=== PATIENT | female | born 1990 | race Caucasian/White ===

== ENCOUNTER 2017-04-29 04:46 | Inpatient (IN) | payer OTHER ==
[~2017-04-29] VITALS: Ht 152.4 cm; Wt 59.0 kg
[2017-04-29] MEDS ORDERED: METHYLPREDNISOLONE 125 MG INJ ONE (04:49)
[2017-04-29] MEDS ORDERED: METHYLPREDNISOLONE 125 MG INJ IV ONE (05:30)
[2017-04-29] MEDS ORDERED: PRENAT PO (05:40)
[2017-04-29] MEDS ORDERED: UDMYL PO (05:41)
[2017-04-29 05:55] LABS: ADD SCAN DIFF NO
[2017-04-29 06:25] LABS: BASOPHIL # 0.1 10^3/ul (0.0-0.1); BASOPHILS % 0.5 % (0.0-2.0); EOSINOPHILS # 0.1 10^3/ul (0.0-0.5); EOSINOPHILS % 0.4 % (0.0-7.0); HEMATOCRIT 34.6 % (37.0-47.0); HEMOGLOBIN 10.7 g/dl (12.0-16.0); LYMPHOCYTES # 2.3 10^3/ul (0.8-2.9); LYMPHOCYTES % 17.3 % (15.0-51.0); MEAN CORPUSCULAR HEMOGLOBIN 26.4 pg (29.0-33.0); MEAN CORPUSCULAR HGB CONC 30.9 g/dl (32.0-37.0); MEAN CORPUSCULAR VOLUME 85.4 fl (82.0-101.0); MEAN PLATELET VOLUME 10.9 fl (7.4-10.4); MONOCYTE # 0.8 10^3/ul (0.3-0.9); MONOCYTES % 5.9 % (0.0-11.0); NEUTROPHILS % 74.9 % (39.0-77.0); NUCLEATED RED BLOOD CELLS # 0.1 10^3/ul (0.0-0.0); NUCLEATED RED BLOOD CELLS% 0.7 /100WBC (0.0-0.0); PLATELET COUNT 462 10^3/UL (140-415); RED BLOOD COUNT 4.05 10^6/ul (4.20-5.40); RED CELL DISTRIBUTION WIDTH 16.3 % (11.5-14.5); WHITE BLOOD COUNT 13.4 10^3/ul (4.8-10.8)
[2017-04-29 06:35] LABS: INR 0.87; PROTIME 11.8 Sec (12.2-14.2); PT RATIO 0.9
[2017-04-29 06:36] LABS: PARTIAL THROMBOPLASTIN TIME 31.3 Sec (25.0-35.0)
--- NOTE | 2017-04-29 06:45 | RADRPT ---
PROCEDURE: XR Chest. CLINICAL INDICATION: Shortness of breath TECHNIQUE: A single AP view of the chest was obtained. COMPARISON: Chest x-ray dated 04/03/2008 FINDINGS: There are diffuse bilateral alveolar opacities. No pleural effusion or pneumothorax is seen. The c ardiomediastinal silhouette is within normal limits for size. The osseous structures are unremarkab le. IMPRESSION: Diffuse bilateral alveolar opacities may reflect pulmonary edema/ARDS or multifocal pneumonia. RPTAT: HH .Poonam Alvarez MD, MD Date Time Electronically viewed and signed by .Poonam Alvarez MD, MD on 04/29/2017 06:44 .G/
[2017-04-29 06:57] LABS: ANION GAP 14 (8-16); BLOOD UREA NITROGEN 16 mg/dl (7-20); CALCIUM 9.8 mg/dl (8.4-10.2); CARBON DIOXIDE 24 mmol/L (21-31); CHLORIDE 105 mmol/L (97-110); GLUCOSE 82 mg/dl (70-220); POTASSIUM 4.9 mmol/L (3.5-5.1); SODIUM 138 mmol/L (135-144)
[2017-04-29 07:00] LABS: ETHANOL < 10.0 mg/dl
[2017-04-29] MEDS ORDERED: CEFTRIAXONE 1 GM/50 ML (PMX) 50 ML IVPB ONE (07:00)
[2017-04-29 07:09] LABS: TROPONIN-I 0.051 ng/ml (0.00-0.12)
[2017-04-29 07:10] LABS: D-DIMER > 10000.00 ng/ml (<460)
[2017-04-29 07:36] LABS: ALBUMIN 3.8 g/dl (3.3-4.9); BILIRUBIN,INDIRECT 0.2 mg/dl (0-1.1); BILIRUBIN,TOTAL 0.2 mg/dl (0.2-1.3); TOTAL PROTEIN 5.3 g/dl (6.1-8.1)
[2017-04-29 07:51] LABS: AADO2 Arterial 132.6 mmHg (7.0-24.0); Allen Test ACCEPTAB; Arterial Base Excess -5.7 mmol/L (-3.0-3); Arterial COHb 0.3 % (0.0-3.0); Arterial Fraction of Oxyhgb 92.7 % (93.0-99.0); Arterial HCO3 16.8 mmol/L (22.0-26.0); Arterial MetHb 0.1 % (0.0-1.5); MODE NASAL CANNULA
[2017-04-29 09:03] LABS: AADO2 Arterial 552.8 mmHg (7.0-24.0); Allen Test ACCEPTAB; Arterial Base Excess -4.4 mmol/L (-3.0-3); Arterial COHb 0.3 % (0.0-3.0); Arterial Fraction of Oxyhgb 97.8 % (93.0-99.0); Arterial HCO3 19.2 mmol/L (22.0-26.0); Arterial MetHb 0.2 % (0.0-1.5); Arterial Total Hemglobin 11.6 g/dl (12.0-18.0); MODE HFNC
[2017-04-29] MEDS ORDERED: LORAZEPAM 2 MG INJ ONE (09:27)
[2017-04-29] MEDS ORDERED: LORAZEPAM 2 MG INJ IV ONE (09:30)
[2017-04-29] MEDS ORDERED: MAGNESIUM SULFATE 4 GM/100 ML 100 ML IVPB ONE (09:30)
[2017-04-29] MEDS ORDERED: hydrALAzine 20 MG INJ IV ONE (09:30)
[2017-04-29] MEDS ORDERED: MINERAL OIL 133 ML ENEMA PR ONE (10:00)
[2017-04-29] MEDS ORDERED: IODIXANOL LOCM 100 ML BTL ONE (10:12)
[2017-04-29] MEDS ORDERED: SOD CHLORIDE 0.9% 100 ML ONE (10:12)
--- NOTE | 2017-04-29 10:53 | RADRPT ---
PROCEDURE: CTA Chest and pulmonary angiogram. CLINICAL INDICATION: Chest pain and shortness of breath. ARDS TECHNIQUE: CT scan of the chest and CT pulmonary angiogram was performed on a multidetector high-r esolution CT scanner. High-resolution thin slice coronal and sagittal imaging was obtained from the axial source images. 3-D volumetric rendered post processing was performed as well. The patient w as examined following the uncomplicated intravenous administration of 100 cc of Visipaque 320. The i mages were reviewed on a PACS workstation. The total exam CTDI equals 42.25, and 9.38 and the total exam DLP equals 328.55 mGy-cm. One or more of the following dose reduction techniques were used: Automated exposure control. Adjustment of the mA and/or kV according to patient size. Use of iterative reconstruction technique. COMPARISON: No prior studies are available for comparison. FINDINGS: CT chest: There is symmetrical bilateral perihilar air space disease with air bronchograms and interlobular se ptal thickening more evident in the periphery of the lung bases. There are small bilateral pleural effusions. The mediastinum is unremarkable without evidence for mass or lymphadenopathy. The vascular structur es of the mediastinum are normal in course and caliber. There is enlargement of the left ventricle. The axillary, subpectoral, and supraclavicular regions are unremarkable. Imaging obtained through the upper abdomen is equally unremarkable. The adrenal glands are symmetri lucas normal. The surrounding chest wall is unremarkable. The osseous structures are remarkable fo r degenerative spondylosis of the spine. CT pulmonary angiogram: No thrombus, clot, filling defect, or pulmonary web is identified. The pulmonary arteries are ban l in caliber and morphology. No filling defect is present to suggest pulmonary embolism. There is no evidence for pulmonary arterial hypertension. IMPRESSION: 1. No evidence for pulmonary embolism. 2. Symmetrical bilateral perihilar air space disease with interlobular septal thickening suggesting alveolar and interstitial pulmonary edema. Multifocal pneumonia remains in the differential. 3. Small bilateral pleural effusions. 4. Left ventricular enlargement. RPTAT: BB .Nghia Delgado MD, MD Date Time Electronically viewed and signed by .Nghia Delgado MD, on 04/29/2017 10:53 .O/
--- NOTE | 2017-04-29 11:16 | RADRPT ---
PROCEDURE: XR CHEST AP PORTABLE CLINICAL INDICATION: Shortness of breath, central cap TECHNIQUE: Single frontal view of the chest COMPARISON: 04/29/2017 FINDINGS: Interval placement of right internal jugular central venous catheter with the tip in the cavoatrial junction. The cardiomediastinal silhouette and pulmonary vasculature are normal. The lungs are clear. Stable bilateral air space consolidation seen bilaterally. The osseous structures are unremarkable. IMPRESSION: Interval placement of right internal jugular central venous catheter with the tip in the cavoatrial junction. No pneumothorax. Stable diffuse bilateral air space consolidation. RPTAT:PP .Dusty Kenyon MD, MD Date Time Electronically viewed and signed by .Dusty Kenyon MD, MD on 04/29/2017 11:16 .V/
--- NOTE | 2017-04-29 11:52 | ERA ---
ER Documentation Chief Complaint Date/Time DATE: 04/29/17 TIME: 05 Chief Complaint sob x 3 days HPI 27-year-old female presents to the emergency department by ambulance complaining of shortness of breath. Patient initially complained of anxiety and shortness of breath for the last 3 days. Upon my arrival, patient has no further history. Initially she denied chest pain but describes her shortness of breath going on for the last 3 days. She states it is worse when she lies down. He has no fevers, cough, sputum production. She reports no inciting event. She states that she has a burning in her epigastric area but no other abdominal pain. She reports no vaginal bleeding or pelvic cramping. She states that she did use methamphetamine approximately 10 days ago but is not no more recent intake. ROS All systems reviewed and are negative except as per history of present illness. Medications Home Meds Reported Medications Magaldrate/Simethicone* (Mag-Al Plus Suspension*) 30 Ml Oral.susp, 30 ML PO Q6H Y for GASTROINTESTINAL UPSET, ML 04/29/17 Multivit/Min/Fol Ac/Iron/Pren* ( S*) 1 Tab Tab, 1 TAB PO DAILY, TAB 04/29/17 Allergies Allergies: Coded Allergies: No Known Drug Allergy (Unverified Allergy, Unknown, 04/29/17) PMhx/Soc Medical and Surgical Hx: pt denies Medical Hx History of Surgery: Yes (3x csection, cholcystectomy) Hx Alcohol Use: Yes Hx Substance Use: Yes Hx Tobacco Use: No Smoking Status: Former smoker FmHx Noncontributory for chief complaint Physical Exam Vitals Vital Signs Date Time Temp Pulse Resp B/P Pulse Ox O2 Delivery O2 Flow Rate FiO2 04/29/17 11:08 100 100 04/29/17 10:05 120 42 126/93 100 High Flow 04/29/17 09:50 100 100 04/29/17 09:31 114 35 121/87 100 High Flow 04/29/17 09:00 118 29 140/112 100 High Flow 04/29/17 08:14 117 46 123/94 100 04/29/17 08:00 99 100 04/29/17 07:58 132 50 126/99 98 5.0 04/29/17 06:50 143 36 95/73 98 Nasal Cannula 04/29/17 06:30 140 99 100 04/29/17 05:14 Nasal Cannula 2 04/29/17 05:04 97.4 133 32 138/114 97 04/29/17 05:04 Nasal Cannula 2.0 04/29/17 05:00 96 4.0 33 Physical Exam GENERAL: Patient is a pale, ill-appearing female who appears to be in respiratory distress. HEENT: Pupils equal, round, and reactive to light. EOMI. There is no scleral icterus. NECK: C-spine is soft and supple, there is no meningismus. There is no cervical lymphadenopathy. No JVD or tracheal deviation LUNGS: Increased respiratory effort. Occasional crackle bilaterally. No wheezing. HEART: Tachycardia with no murmurs rubs or gallops ABDOMEN: Gravid with size appropriate for dates. Nontender to palpation. EXTREMITIES: There is no peripheral cyanosis or edema. No focal swelling or erythema. No Homans sign NEURO: The patient moves all four extremities with 5/5 strength. Cranial nerves II - XII are intact. Normal gait. Alert and oriented. SKIN: There is no apparent rash or petechiae. No evidence of IV drug abuse HEME/LYMPHATIC: There is no evidence of excessive bruising or lymphedema. PSYCHIATRIC: Patient is anxious and somewhat hyperventilating. She is emotionally labile. Result Diagram: 04/29/17 0509 04/29/17 0509 Results 24 hrs Laboratory Tests Test 04/29/17 05:06 04/29/17 05:09 04/29/17 07:05 04/29/17 08:58 Blood Gas Specimen Source Blood arterial Blood arterial Arterial Blood Date Drawn 04/29/2017 5:50:13 AM 04/29/2017 8:55:10 AM Arterial Blood pH (Temp corrected) 7.451 7.416 Arterial Blood pCO2 (Temp correct) 24.7mmhg 30.5mmhg Arterial Blood pO2 (Temp corrected) 73.9mmHG 129.7mmHG Arterial Blood HCO3 16.8mmol/L 19.2mmol/L Arterial Blood Base Excess -5.7mmol/L -4.4mmol/L Arterial Blood Oxygen Saturation 93.1mmHG 98.3mmHG Ruel Test ACCEPTAB ACCEPTAB Arterial Blood Gas Puncture Site Right Radial Right Radial Arterial Blood Carboxyhemoglobin 0.3% 0.3% Arterial Blood Methemoglobin 0.1% 0.2% Blood Gas A-a O2 Differential 132.6mmHg 552.8mmHg Oxyhemoglobin Percent 92.7% 97.8% Total Hemoglobin 11.0g/dl 11.6g/dl Blood Gas Temperature 37.0C 37.0C Blood Gas Actual Respiration Rate 24 Blood Gas Modality NASAL CANNULA HFNC FiO2 33.0% 100.0% Blood Gas Notified Whom Juan Matos TM Blood Gas Notified Time 04/29/2017 6:01:43 AM 04/29/2017 9:02:59 AM White Blood Count 13.410^3/ul Red Blood Count 4.0510^6/ul Hemoglobin 10.7g/dl Hematocrit 34.6% Mean Corpuscular Volume 85.4fl Mean Corpuscular Hemoglobin 26.4pg Mean Corpuscular Hemoglobin Concent 30.9g/dl Red Cell Distribution Width 16.3% Platelet Count 35634^3/UL Mean Platelet Volume 10.9fl Neutrophils % 74.9% Lymphocytes % 17.3% Monocytes % 5.9% Eosinophils % 0.4% Basophils % 0.5% Nucleated Red Blood Cells % 0.7/100WBC Neutrophils # 10.010^3/ul Lymphocytes # 2.310^3/ul Monocytes # 0.810^3/ul Eosinophils # 0.110^3/ul Basophils # 0.110^3/ul Nucleated Red Blood Cells # 0.110^3/ul Prothrombin Time 11.8Sec Prothrombin Time Ratio 0.9 INR International Normalized Ratio 0.87 Activated Partial Thromboplast Time 31.3Sec D-Dimer > 15519.00ng/ml Sodium Level 138mmol/L Potassium Level 4.9mmol/L Chloride Level 105mmol/L Carbon Dioxide Level 24mmol/L Anion Gap 14 Blood Urea Nitrogen 16mg/dl Creatinine 0.90mg/dl Glucose Level 82mg/dl Calcium Level 9.8mg/dl Total Bilirubin 0.2mg/dl Direct Bilirubin 0.00mg/dl Indirect Bilirubin 0.2mg/dl Aspartate Amino Transf (AST/SGOT) 37IU/L Alanine Aminotransferase (ALT/SGPT) 30IU/L Alkaline Phosphatase 194IU/L Troponin I 0.051ng/ml Total Protein 5.3g/dl Albumin 3.8g/dl Ethyl Alcohol Level < 10.0mg/dl Lactic Acid Level 1.6mmol/L Current Medications Medications (Trade) Dose Ordered Sig/Germania Route PRN Reason Start Time Stop Time Status Last Admin Dose Admin Methylprednisolone Sodium Succinate 125 mg 125 mg ONCE ONCE IV 04/29/17 05:30 04/29/17 05:31 DC 04/29/17 05:10 Ceftriaxone Sodium 50 ml @ 100 mls/hr ONCE ONCE IVPB 04/29/17 07:00 04/29/17 07:29 DC 04/29/17 07:26 Magnesium Sulfate (Magnesium Sulfate 4 Gm/100 ml) 100 ml @ 25 mls/hr ONCE ONCE IVPB 04/29/17 09:30 04/29/17 13:29 Hydralazine HCl (Apresoline) 5 mg ONCE ONCE IV 04/29/17 09:30 04/29/17 09:31 DC 04/29/17 09:25 Lorazepam (Ativan) 0.5 mg ONCE ONCE IV 04/29/17 09:30 04/29/17 09:31 DC 04/29/17 09:32 Lorazepam (Ativan) 2 mg STK-MED ONCE .ROUTE 04/29/17 09:27 04/29/17 09:28 DC Mineral Oil (Fleet Mineral Oil Enema) 133 ml ONCE ONCE NM 04/29/17 10:00 04/29/17 10:01 DC IV Flush 10 ml 10 ml STK-MED ONCE .ROUTE 04/29/17 10:12 04/29/17 10:13 DC 04/29/17 10:42 Sodium Chloride (NS) 100 ml @ ud STK-MED ONCE .ROUTE 04/29/17 10:12 04/29/17 10:13 DC 04/29/17 10:43 Iodixanol (Visipaque Locm) 100 ml STK-MED ONCE .ROUTE 04/29/17 10:12 04/29/17 10:13 DC 04/29/17 10:43 Procedures/MDM Patient was taken to a room, seen and evaluated. Comfort measures were initiated. Diagnostic tests were ordered and reviewed. 3 LEAD RHYTHM STRIP: Sinus tachycardia EK lead EKG reviewed by myself: Sinus tachycardia Normal [place] and intervals No ST elevation, depression, or T wave inversion Impression: Tachycardic without ischemic changes RADIOLOGY: reviewed with the radiologist CONSULTATION: hospitalist was notified for admission. Pulmonary consultation has been requested, but I have had no return phone call. The on-call labor arrest was consulted and was at the bedside. The laborist and I discussed the blood pressure, possibility of preeclampsia and management decisions. Joint decision was made to treat anxiety, monitor with expectant management. REEVALUATION: Patient's initial presentation was concerning for hypoxemia and shortness of breath. Initial chest x-ray then demonstrated ARDS which was obviously concerning for multiple causes in this patient. Fortunately , her seem to be viable and when we placed the patient on toco dynamic monitoring, there seem to be no immediate related complications. From the ARDS standpoint, patient required high flow nasal cannula oxygen as she would not tolerate BiPAP. I considered intubating the patient, but her blood gases remained stable and she did not seem to need intubation. She was maintained on high flow nasal cannula. Patient had multiple evaluations including a CT scan of the chest which fortunately did not show pulmonary embolism. The risks and benefits of this test were considered in this patient with significant ARDS, desaturation and severe tachycardia I felt that the risks were outweighed by the necessity for the diagnostic imaging. Patient was treated with antibiotics, but I doubt very much this patient had pneumonia. MEDICAL DECISION MAKING: Overall, my suspicion is that this patient is with ARDS likely related to methamphetamine abuse. She has hypoxemia and tachycardia that makes her obviously high risk. She has required aggressive non -invasive positive pressure ventilation as well as significant evaluation of both the patient as well as her . Patient will be admitted to our intensive care unit for further ongoing care. Departure Diagnosis: Primary Impression: ARDS (adult respiratory distress syndrome) Additional Impressions: Intrauterine Methamphetamine abuse Condition: Critical GLADYS ALFRED Apr 29, 2017 11:52
[2017-04-29] MEDS ORDERED: ONDANSETRON 4 MG INJ IV PRN (13:30)
--- NOTE | 2017-04-29 13:39 | CONS ---
Date/Time of Note Date/Time of Note DATE: 04/29/17 TIME: 13:35 Assessment/Plan Assessment/Plan Additional Assessment/Plan CT of the chest was reviewed which is negative for PE. Bilateral diffuse alveolar infiltrates are present. Chest x-ray findings are similar. Assessment recommendations; 1. Patient admitted with severe bilateral pneumonia. 2. Currently . 3. No underlying comorbid illnesses. Continue supplemental oxygen. Patient is a has improved since admission. I would recommend starting her on Zosyn and Zithromax intravenously. Will obtain follow-up chest x-ray in 24 hours. Consultation Date/Type/Reason Admit Date/Time Date of Consultation: Apr 29, 2017 Type of Consultation: Pulmonary/critical care Reason for Consultation Pulmonary consultations requested for evaluation of severe pneumonia. History of presenting; patient is a 27-year-old female who came into the emergency room with complaints of 3 day history of shortness of breath cough and chest congestion. Upon evaluation chest x-ray was done which is showing diffuse pneumonia. Patient subsequently underwent a CTA of the chest to rule out PE which is negative for PE however bilateral pneumonia has been diagnosed. Patient denies any high fever chills any body aches or myalgias. Complains of scant cough. Denies any hemoptysis. Denies any nausea vomiting. Past medical history; unremarkable. Patient currently . Medications; reviewed. Social history; patient has history of smoking. Family history; noncontributory. Occupation she; patient does not work currently. Review of systems; denies any headache, any seizures. Any visual changes. Any sinus symptoms or postnasal drip. Denies any chest pain, angina. Complains of cough with scant sputum production. Denies any hemoptysis. Denies any abdominal pain, nausea vomiting. Any melena or hematochezia. Complains of mild orthopnea. Denies any edema. Diego; young female, awake alert currently in no distress. Social History Smoking Status: Former smoker Exam/Review of Systems Vital Signs Vitals Vital Signs Date Time Temp Pulse Resp B/P Pulse Ox O2 Delivery O2 Flow Rate FiO2 04/29/17 13:10 100 100 04/29/17 12:47 98.4 113 34 114/74 High Flow Nasal Cannula 04/29/17 07:58 5.0 Exam HEENT examination; supple neck, no JVD. No lymphadenopathy. Midline trachea. No thyromegaly. Pharynx is clear. Patient has fair dentition. Pupils are midsize and reactive to light. Chest examination; bilateral crackles. S1-S2 audible, no murmurs. Regular rhythm. Abdomen examination; soft, nontender. Bowel sounds audible. Extremity examination; no peripheral edema. Pulses 1+ bilaterally. No clubbing. PROJECT ADMINISTRATOR examination; no focal deficit. Results Result Diagram: 04/29/17 0509 04/29/17 0509 Results 24 hrs Laboratory Tests Test 04/29/17 05:06 04/29/17 05:09 04/29/17 07:05 04/29/17 08:58 Blood Gas Specimen Source Blood arterial Blood arterial Arterial Blood Date Drawn 04/29/2017 5:50:13 AM 04/29/2017 8:55:10 AM Arterial Blood pH (Temp corrected) 7.451 H 7.416 Arterial Blood pCO2 (Temp correct) 24.7 L 30.5 L Arterial Blood pO2 (Temp corrected) 73.9 L 129.7 H Arterial Blood HCO3 16.8 L 19.2 L Arterial Blood Base Excess -5.7 L -4.4 L Arterial Blood Oxygen Saturation 93.1 L 98.3 H Ruel Test ACCEPTAB ACCEPTAB Arterial Blood Gas Puncture Site Right Radial Right Radial Arterial Blood Carboxyhemoglobin 0.3 0.3 Arterial Blood Methemoglobin 0.1 0.2 Blood Gas A-a O2 Differential 132.6 H 552.8 H Oxyhemoglobin Percent 92.7 L 97.8 Total Hemoglobin 11.0 L 11.6 L Blood Gas Temperature 37.0 37.0 Blood Gas Actual Respiration Rate 24 Blood Gas Modality NASAL CANNULA HFNC FiO2 33.0 100.0 Blood Gas Notified Whom K B TM Blood Gas Notified Time 04/29/2017 6:01:43 AM 04/29/2017 9:02:59 AM White Blood Count 13.4 H Red Blood Count 4.05 L Hemoglobin 10.7 L Hematocrit 34.6 L Mean Corpuscular Volume 85.4 Mean Corpuscular Hemoglobin 26.4 L Mean Corpuscular Hemoglobin Concent 30.9 L Red Cell Distribution Width 16.3 H Platelet Count 462 H Mean Platelet Volume 10.9 H Neutrophils % 74.9 Lymphocytes % 17.3 Monocytes % 5.9 Eosinophils % 0.4 Basophils % 0.5 Nucleated Red Blood Cells % 0.7 H Neutrophils # 10.0 H Lymphocytes # 2.3 Monocytes # 0.8 Eosinophils # 0.1 Basophils # 0.1 Nucleated Red Blood Cells # 0.1 H Prothrombin Time 11.8 L Prothrombin Time Ratio 0.9 INR International Normalized Ratio 0.87 Activated Partial Thromboplast Time 31.3 D-Dimer > 87285.00 H Sodium Level 138 Potassium Level 4.9 Chloride Level 105 Carbon Dioxide Level 24 Anion Gap 14 Blood Urea Nitrogen 16 Creatinine 0.90 Glucose Level 82 Calcium Level 9.8 Total Bilirubin 0.2 Direct Bilirubin 0.00 Indirect Bilirubin 0.2 Aspartate Amino Transf (AST/SGOT) 37 Alanine Aminotransferase (ALT/SGPT) 30 Alkaline Phosphatase 194 H Troponin I 0.051 Total Protein 5.3 L Albumin 3.8 Ethyl Alcohol Level < 10.0 Lactic Acid Level 1.6 VICTORINO LOYOLA Apr 29, 2017 13:39
[2017-04-29] MEDS ORDERED: PIPER-TAZO 3.375 GM IV (PMX) 100 ML IVPB ONE (14:00)
[2017-04-29] MEDS ORDERED: AZITHROMYCIN 250 MG in SOD CHLORIDE 0.9% 250 ML IVPB SCH (14:00)
[2017-04-29] MEDS ORDERED: LABETALOL HCL 20MG INJ IV PRN (14:00)
[2017-04-29] MEDS ORDERED: FUROSEMIDE 20 MG INJ IV ONE (14:00)
--- NOTE | 2017-04-29 14:50 | HP ---
DATE OF ADMISSION: 04/29/2017 ADMITTING PHYSICIAN: Dr. Lockhart SECONDARY SET UP MAN ON THIS ADMISSION: Dr. Hayes from pulmonary critical care, Dr. Antoine from OB and the on-ca laborist. CHIEF COMPLAINT ON ADMISSION: Shortness of breath. HISTORY OF PRESENT ILLNESS: This is a 27-year-old female who is currently , at least 27 wee ks to 28 weeks, who is also a methamphetamine user, who presented to the emergency department zoila t in by ambulance with reported shortness of breath. The patient, by the time I am evaluating her, did get a small dose of Ativan. She is sleeping. She is not willing to answer questions, but is st able. Therefore, all the information is obtained from the emergency department physician and the ER charts. According to the records, the patient initially was complaining of anxiety and shortness o f breath for the past 3 days. She was denying chest pain, but just reporting shortness of breath. She was reporting that the shortness of breath is worse with lying down; therefore, orthopnea. She denies fevers, cough or sputum production. She at first reported that she did not use any medicatio n for a month then she did not use any for a couple of days, but most likely her last use was the da y of admission. She was reporting burning in her epigastric area, but no further abdominal pain. S he does have a gravid abdomen. Ultrasound was done in the emergency department with estimation of p regnancy viable of 27 weeks at least. She reports no vaginal bleeding or pelvic cramping. OB will be placing a monitor in order to monitor the heart rate. The patient again likely had a rece nt intake of methamphetamine. Either way, she is probably a chronic user, therefore at risk for car diomyopathy. Her chest x-ray findings are consistent with pulmonary edema. There is also questiona ble ARDS. However, currently after a dose of Ativan and also a dose of hydralazine to control her b lood pressure, the patient is much more comfortable. She is currently on high flow. She will be re ceiving a dose of Lasix for diuresis at this time. She has been evaluated by Dr. Hayes from [facility]. He is continuing antibiotics for possible community-acquired pneumonia based on the x-ray findi ngs along with diuresis. Echocardiogram is pending. Patient also had a CTA of the chest. The resu lts are more consistent with multifocal pneumonia versus pulmonary edema with small bilateral pleura l effusion and no pulmonary embolism. The patient is currently more stable, but due to the fact opal t she is , the is viable, she will be admitted to the intensive care unit for clos e monitoring of her respiratory status and also her hemodynamics and notably, her hypertension. Lab etalol p.r.n. will be ordered for her hypertension. She will need social media developer involved. ALLERGIES: NO KNOWN ALLERGIES. PAST MEDICAL HISTORY: None. PAST SURGICAL HISTORY: The patient had 3 C-sections and a cholecystectomy previously. OUTPATIENT MEDICATIONS: 1. vitamin 1 tab p.o. daily. 2. Mylanta every 6 hours as needed for GI upset. SOCIAL HISTORY: This is again based on the reports from the ER. The patient is an alcohol user, it is unclear how much. She is at least a methamphetamine user, it is unclear if she has additional d rug use and she used to be a tobacco smoker. Further information will be obtained once the patient is more awake and more comfortable. REVIEW OF SYSTEMS: Unable to obtain. PHYSICAL EXAMINATION: VITAL SIGNS: Temperature is 98.4, pulse of 113, respiratory rate of 34, blood pressure is 114/74. Patient is satting 100% on high flow. GENERAL: She is sleeping. She is comfortable currently on high flow, in no acute distress. HEENT: Pupils are equally round and reactive to light. Extraocular muscles are intact. Anicteric sclerae. NECK: No JVD per se is seen. No thyromegaly. HEART: Regular rhythm, tachycardic. LUNGS: She does have decreased breath sounds bilaterally. ABDOMEN: Gravid. Again, per bedside ultrasound from the ER physician, there is a reported possibly 27 to 28 weeks viable . EXTREMITIES: No edema, clubbing or cyanosis. NEUROLOGIC: She is currently sleeping, somewhat sedated, but moving all 4 extremities. LABORATORY DATA: White blood cell count is 13.4, hemoglobin of 10.7, hematocrit of 36.4, platelet c ount of 462. Chemistry with a sodium of 138, potassium 4.9, chloride 105, bicarbonate 24, BUN 16, c reatinine 0.90. Lactic acid 1.6, calcium of 9.8, total bilirubin 0.2, AST 37, ALT 30, alkaline phos phatase 194. Troponin 0.051, total protein of 5.3, albumin of 3.8. Alcohol level less than 10. D -dimer greater than 10,000. PTT of 31.3, INR 0.87. PT of 11.8, ABG on high flow currently showing a pH of 7.41, pCO2 of 30, pO2 of 129. EKG shows sinus tachycardia. RADIOLOGICAL DATA: 1. Chest x-ray did show ____ diffuse bilateral alveolar opacity, may reflect pulmonary edema versus ARDS or multifocal pneumonia. CAT scan of the chest is showing no evidence of pulmonary embolism s ymmetrical bilateral perihilar airspace disease with interlobular septal thickening, suggesting alve olar and interstitial pulmonary edema. Multifocal pneumonia cannot be excluded. Small bilateral pl eural effusions, left ventricular enlargement is seen. 2. A 2D echocardiogram is pending. ASSESSMENT AND PLAN: This is a 27-year-old female who is currently 27 to 28 weeks viable with: 1. Respiratory distress likely secondary to congestive heart failure and pulmonary edema. Based on her CAT scan, she likely does have congestive heart failure. The question is does she have systolic dysfunction versus diastolic dysfunction and also pulmonary edema. She did receive a dose of stero ids from the emergency department as there was a question of acute respiratory distress syndrome. I am giving her a dose of Lasix 20 mg IV x1 after discussion with pulmonary. We will continue antibi otics. Also, she did get Rocephin and azithromycin has been added by pulmonary at this point. The patient is to remain on high flow and will titrate her oxygen down as needed. She is being admitted to the intensive care unit due to the fact that she is also , currently with a viable pregn junior; therefore,\k she needs very close monitoring of her respiratory status and also of her hemodyn amics. 2. Hypertension, which is secondary to combination of anxiety and respiratory distress upon admissi on. Her blood pressure is much better now. She did receive a small dose of Ativan and adequate oxy genation currently. Will continue to monitor for now due to the fact that she is if she do es need additional blood pressure control, I have ordered labetalol as needed, a very small dose. 3. of 27 to 28 weeks, viable. Promotion Manager/laborist induction coordination engineer has been consulted. Patient is to have a heart monitor placed so that she can be followed while she is in the ICU. All m edications have to be double checked for safety. 4. Methamphetamine use. account services manager will be contacted. We will continue to monitor the patien t for now. 5. Prophylaxis: Sequential compression devices to lower extremity for deep vein thrombosis prophyl axis. The patient will also need gastrointestinal prophylaxis, likely Pepcid versus just Mylanta. DISPOSITION: The patient is being admitted to the ICU at this time for close monitoring. Pulmonary has been consulted along with laborist supervisor securities vault induction coordination engineer. Dictated By: RUPAL GIORDANO/NTS Conf#: [id number] DID#: [id number]
--- NOTE | 2017-04-29 16:30 | RADRPT ---
Echocardiogram Report Patient Name: STEPHANIE PATEL Gender: Female Date: 1990 Study Date: 29-Apr-2017 Supervisor [employer]: Lopez Cruz [facility] Location: ED4 Ref. Physician: CAITLYN RICK Quality: Good Procedures: Transthoracic echocardiogram with complete 2D, M-Mode, and doppler examination. Indications: Cardiomyopathy. 2D/M Mode Doppler Measurement Value Normal Ranges Measurement Value Normal Ranges LVIDd 2D 5.9 3.5 - 5.6 cm AV Peak Abraham 0.9 m/sec LVIDs 2D 5.5 2.1 - 4.1 cm AV Peak PG 3.2 mmHg LVPWd 2D 1.1 0.6 - 1.1 cm LVOT Peak Abraham 0.6 m/sec IVSd 2D 0.8 0.6 - 1.1 cm LVOT Peak PG 1.6 mmHg AoR Diam 2D 1.7 2.0 - 3.7 cm MV E Peak Abraham 1.3 m/sec EDV 2D 176.3 cm3 MV A Peak Abraham 0.3 m/sec ESV 2D 162.7 cm3 MV E/A 4.3 LA Dimen 2D 3.7 2.3 - 4.0 cm MV Decel Time 112 msec MV Decel Day 11 MV E/A 4.3 TR Peak Abraham 2.3 m/sec TR Peak PG 21.3 mmHg RVSP 24.3 mmHg Findings Left Ventricle: Normal left ventricular wall thickness. Moderate enlargement of left ventricle cavity. Severe left ventricular systolic dysfunction. Ejection fraction is visually estimated at 25 %. Right Ventricle: Normal right ventricular size. Normal right ventricular systolic function. Left Atrium: There is mild enlargement of left atrium. Right Atrium: The right atrium is normal in size. Mitral Valve: Mitral valve leaflets appear mildly thickened. Mild mitral annular calcification. Mild to moderate mitral valve regurgitation. Aortic Valve: Normal appearance of the aortic valve. No significant aortic stenosis or insufficiency. Tricuspid Valve: Normal appearance of the tricuspid valve. Estimated peak PA systolic pressure 24 mmHg. There is mild tricuspid regurgitation. Pulmonic Valve: Normal pulmonic valve appearance. Pericardium: Normal pericardium with no significant pericardial effusion. Aorta: Normal aortic root. IVC: Normal size and normal respiratory collapse consistent with normal right atrial pressure. Pulmonary Artery: Normal pulmonary artery size. Conclusions 1.Normal left ventricular wall thickness. Moderate enlargement of left ventricle cavity. Severe left ventricular systolic dysfunction. Ejection fraction is visually estimated at 25 %. 2.Normal right ventricular size. Normal right ventricular systolic function. 3.There is mild enlargement of left atrium. 4.The right atrium is normal in size. 5.Mild to moderate mitral valve regurgitation. 6.No significant aortic stenosis or insufficiency. 7.Estimated peak PA systolic pressure 24 mmHg. There is mild tricuspid regurgitation. 8.Normal pericardium with no significant pericardial effusion. 9.Findings discussed with Dr. Rick 04/29/17 @4:25p. Electronically Signed By: Bradford Vinson 29-Apr-2017 16:29:05 -0700 Patient Name: STEPHANIE PATEL Study Date: 29-Apr-2017 [id number]
[2017-04-29 17:03] LABS: CK-MB 3.57 ng/ml (0.0-2.4); TROPONIN-I 0.025 ng/ml (0.00-0.12)
--- NOTE | 2017-04-29 19:29 | CONS ---
Date/Time of Note Date/Time of Note DATE: 04/29/17 TIME: 19:27 Assessment/Plan Assessment/Plan Additional Assessment/Plan iup 28 weeks bilateral PNA OB us NST q shift- may do continuous monitoring if patients condition changes continue IV abx will follow Consultation Date/Type/Reason Admit Date/Time Type of Consultation: obgyn Reason for Consultation 28 weeks Hx of Present Illness pt 28 weeks with repiratory complaints. Social History Smoking Status: Former smoker Exam/Review of Systems Vital Signs Vitals Vital Signs Date Time Temp Pulse Resp B/P Pulse Ox O2 Delivery O2 Flow Rate FiO2 04/29/17 19:02 100 90 04/29/17 18:30 98.6 115 29 108/68 High Flow Nasal Cannula 04/29/17 07:58 5.0 Results Result Diagram: 04/29/17 0509 04/29/17 0509 Results 24 hrs Laboratory Tests Test 04/29/17 05:06 04/29/17 05:09 04/29/17 07:05 04/29/17 08:58 Blood Gas Specimen Source Blood arterial Blood arterial Arterial Blood Date Drawn 04/29/2017 5:50:13 AM 04/29/2017 8:55:10 AM Arterial Blood pH (Temp corrected) 7.451 H 7.416 Arterial Blood pCO2 (Temp correct) 24.7 L 30.5 L Arterial Blood pO2 (Temp corrected) 73.9 L 129.7 H Arterial Blood HCO3 16.8 L 19.2 L Arterial Blood Base Excess -5.7 L -4.4 L Arterial Blood Oxygen Saturation 93.1 L 98.3 H Ruel Test ACCEPTAB ACCEPTAB Arterial Blood Gas Puncture Site Right Radial Right Radial Arterial Blood Carboxyhemoglobin 0.3 0.3 Arterial Blood Methemoglobin 0.1 0.2 Blood Gas A-a O2 Differential 132.6 H 552.8 H Oxyhemoglobin Percent 92.7 L 97.8 Total Hemoglobin 11.0 L 11.6 L Blood Gas Temperature 37.0 37.0 Blood Gas Actual Respiration Rate 24 Blood Gas Modality NASAL CANNULA HFNC FiO2 33.0 100.0 Blood Gas Notified Whom K B TM Blood Gas Notified Time 04/29/2017 6:01:43 AM 04/29/2017 9:02:59 AM White Blood Count 13.4 H Red Blood Count 4.05 L Hemoglobin 10.7 L Hematocrit 34.6 L Mean Corpuscular Volume 85.4 Mean Corpuscular Hemoglobin 26.4 L Mean Corpuscular Hemoglobin Concent 30.9 L Red Cell Distribution Width 16.3 H Platelet Count 462 H Mean Platelet Volume 10.9 H Neutrophils % 74.9 Lymphocytes % 17.3 Monocytes % 5.9 Eosinophils % 0.4 Basophils % 0.5 Nucleated Red Blood Cells % 0.7 H Neutrophils # 10.0 H Lymphocytes # 2.3 Monocytes # 0.8 Eosinophils # 0.1 Basophils # 0.1 Nucleated Red Blood Cells # 0.1 H Prothrombin Time 11.8 L Prothrombin Time Ratio 0.9 INR International Normalized Ratio 0.87 Activated Partial Thromboplast Time 31.3 D-Dimer > 86949.00 H Sodium Level 138 Potassium Level 4.9 Chloride Level 105 Carbon Dioxide Level 24 Anion Gap 14 Blood Urea Nitrogen 16 Creatinine 0.90 Glucose Level 82 Calcium Level 9.8 Total Bilirubin 0.2 Direct Bilirubin 0.00 Indirect Bilirubin 0.2 Aspartate Amino Transf (AST/SGOT) 37 Alanine Aminotransferase (ALT/SGPT) 30 Alkaline Phosphatase 194 H Troponin I 0.051 Total Protein 5.3 L Albumin 3.8 Ethyl Alcohol Level < 10.0 Lactic Acid Level 1.6 Test 04/29/17 16:20 Creatine Kinase 84 Creatine Kinase Index 4.3 Creatinine Kinase MB (Mass) 3.57 H Troponin I 0.025 Medications Medications Current Medications Ondansetron HCl (Zofran Inj) 4 mg Q6H PRN IV NAUSEA AND/OR VOMITING; Start at 13:30 Acetaminophen (Tylenol Tab) 650 mg Q6H PRN PO PAIN LEVEL 1-3 OR FEVER; Start at 13:30 Lorazepam (Ativan) 0.5 mg Q8H PRN IV ANXIETY; Start 04/29/17 at 13:30 Labetalol HCl 5 mg 5 mg Q6H PRN IV SBP GREATER THAN 160; Start 04/29/17 at 14: 00 Ceftriaxone Sodium (Rocephin) 50 ml @ 100 mls/hr Q24H IVPB ; Start 04/30/17 at 07:00 SHANNAN RODAS MD Apr 29, 2017 19:29
--- NOTE | 2017-04-29 20:13 | RADRPT ---
PROCEDURE: US OB. CLINICAL INDICATION: well-being, size and dates TECHNIQUE: Multiple sonographic images of the pelvis were obtained. Transabdominal imaging only w as performed. The images were reviewed on a PACS workstation. COMPARISON: No prior studies are available for comparison. FINDINGS: Single intrauterine gestation. Breech presentation. heart rate is 159 bpm. The cervix is closed and measures 6.4 cm in length. Measurements were made in order to determine age. The results are as follows: BPD = 8.06 cm HC = 28.56 cm AC = 30.18 cm FL = 6.74 cm Gestational age is 33 weeks 1 day and GARCÍA is 06/16/2017 by ultrasound criteria. EFW = 2280 g +/- 342 g. The placenta is anterior fundal. There is no evidence for an abruption or placenta previa. IMPRESSION: 1. Single live intrauterine gestation of approximately 33 weeks 1 day by ultrasound criteria. 2. Breech presentation. RPTAT: HDWR .Asim Mccullough MD, MD Date Time Electronically viewed and signed by .Asim Mccullough MD, on 04/29/2017 20:12 .R/
--- NOTE | 2017-04-29 20:16 | RADRPT ---
PROCEDURE: OB ultrasound for biophysical profile CLINICAL INDICATION: well-being. Biophysical profile. . TECHNIQUE: Multiple sonographic images of the pelvis were obtained. Transabdominal view of the gr avid uterus are available for review. The images were reviewed on a PACS workstation. COMPARISON: None FINDINGS: breathing movement = 2/2 tone = 2/2 motion = 2/2 ANNA = 2/2 Single intrauterine gestation is identified in breech position. heart rate is 157 bpm. Placen ta is anterior fundal without evidence for abruption or previa. ANNA measures 7.4 cm, within normal limits. IMPRESSION: 1. Single live intrauterine gestation. 2. Biophysical profile = 8/8. 3. ANNA = 7.4 cm. 4. Breech presentation RPTAT: HDWR .Asim Mccullough MD, MD Date Time Electronically viewed and signed by .Asim Mccullough MD, on 04/29/2017 20:15 .R/
[2017-04-30 02:19] LABS: BARBITURATES Positive (NEGATIVE); CANNABINOIDS Negative (NEGATIVE)
[2017-04-30 02:23] LABS: BENZODIAZEPINES Negative (NEGATIVE); COCAINE Negative (NEGATIVE); OPIATES Negative (NEGATIVE)
[2017-04-30 06:09] LABS: ADD SCAN DIFF NO
[2017-04-30 06:11] LABS: BASOPHILS % 0.2 % (0.0-2.0); EOSINOPHILS % 0.1 % (0.0-7.0); HEMATOCRIT 25.5 % (37.0-47.0); HEMOGLOBIN 7.8 g/dl (12.0-16.0); LYMPHOCYTES # 1.7 10^3/ul (0.8-2.9); LYMPHOCYTES % 12.8 % (15.0-51.0); MEAN CORPUSCULAR HEMOGLOBIN 26.4 pg (29.0-33.0); MEAN CORPUSCULAR HGB CONC 30.6 g/dl (32.0-37.0); MEAN CORPUSCULAR VOLUME 86.1 fl (82.0-101.0); MEAN PLATELET VOLUME 11.1 fl (7.4-10.4); MONOCYTE # 1.2 10^3/ul (0.3-0.9); MONOCYTES % 8.9 % (0.0-11.0); NEUTROPHIL # 10.3 10^3/ul (1.6-7.5); NEUTROPHILS % 77.1 % (39.0-77.0); NUCLEATED RED BLOOD CELLS # 0.1 10^3/ul (0.0-0.0); NUCLEATED RED BLOOD CELLS% 0.6 /100WBC (0.0-0.0); PLATELET COUNT 349 10^3/UL (140-415); RED BLOOD COUNT 2.96 10^6/ul (4.20-5.40); RED CELL DISTRIBUTION WIDTH 16.8 % (11.5-14.5); WHITE BLOOD COUNT 13.3 10^3/ul (4.8-10.8)
--- NOTE | 2017-04-30 06:31 | RADRPT ---
PROCEDURE: XR, Chest. CLINICAL INDICATION: Cough/shortness of breath. TECHNIQUE: AP chest COMPARISON: Chest, 04/03/2008. FINDINGS: No pleural effusion. The heart is is moderately enlarged with bilateral perihilar air space infiltr ates vs airspace pulmonary edema. There is central pulmonary artery hypertension. IMPRESSION: 1. Moderate cardiomegaly with bilateral perihilar air space pulmonary edema vs bilateral perihilar air space infiltrates. Recommend clinical correlation. 2. Central pulmonary artery hypertension. RPTAT: GG .Giovanny Gonzalez MD, MD Date Time Electronically viewed and signed by .Giovanny Gonzalez MD, MD on 04/30/2017 06:30 .Y/
[2017-04-30 06:34] LABS: ALBUMIN 2.7 g/dl (3.3-4.9); ALBUMIN/GLOBULIN RATIO 1.03; BILIRUBIN,INDIRECT 0.1 mg/dl (0-1.1); BILIRUBIN,TOTAL 0.1 mg/dl (0.2-1.3); CALCIUM 7.9 mg/dl (8.4-10.2); CREATININE 0.89 mg/dl (0.44-1.00); POTASSIUM 4.2 mmol/L (3.5-5.1); TOTAL PROTEIN 5.3 g/dl (6.1-8.1)
[2017-04-30] MEDS ORDERED: CEFTRIAXONE 1 GM/50 ML (PMX) 50 ML IVPB SCH (07:00)
[2017-04-30 07:17] LABS: MAGNESIUM 1.9 mg/dl (1.7-2.5); PHOSPHORUS 3.4 mg/dl (2.5-4.9)
[2017-04-30] MEDS: ACETAMINOPHEN 325 MG TAB PO PRN ×3 (07:52→20:22)
[2017-04-30] MEDS: LORAZEPAM 2 MG INJ IV PRN ×2 (07:52→20:21)
--- NOTE | 2017-04-30 08:29 | PN ---
Date/Time of Note Date/Time of Note DATE: 04/30/17 TIME: 08:25 Assessment/Plan VTE Prophylaxis VTE Prophylaxis Intervention: anti-embolic stocking, SCD's Assessment/Plan Assessment/Plan 1. pulm: severe hypoxemic resp failure, improving, cont gentle diuresis for pulm edema (b0 cont Rx for pneumonia, (c) wean O2 as tolerated 2. cartds: dilated cardiomyopathy, ? vs amphetamine vs both. defer acei in light of 3. proph: teds and scd Subjective 24 Hr Interval Summary Free Text/Dictation somnolent, barely arouseable after receiving ativan Respiratory: wheezing Exam/Review of Systems Vital Signs Vitals Vital Signs Date Time Temp Pulse Resp B/P Pulse Ox O2 Delivery O2 Flow Rate FiO2 04/30/17 07:37 100 40 04/30/17 07:00 116 32 113/78 High Flow 5.0 04/30/17 04:30 97.9 Intake and Output 04/29/17 04/29/17 04/30/17 15:00 23:00 07:00 Intake Total 50 ml 100 ml Balance 50 ml 100 ml Exam Constitutional: non-verbal Respiratory: crackles/rales Cardiovascular: regular rate and rhythm Results Result Diagram: 04/30/17 0540 04/30/17 0540 Results 24 hrs Laboratory Tests Test 04/29/17 08:58 04/29/17 16:20 04/30/17 01:23 04/30/17 05:40 Blood Gas Specimen Source Blood arterial Arterial Blood Date Drawn 04/29/2017 8:55:10 AM Arterial Blood pH (Temp corrected) 7.416 Arterial Blood pCO2 (Temp correct) 30.5 L Arterial Blood pO2 (Temp corrected) 129.7 H Arterial Blood HCO3 19.2 L Arterial Blood Base Excess -4.4 L Arterial Blood Oxygen Saturation 98.3 H Ruel Test ACCEPTAB Arterial Blood Gas Puncture Site Right Radial Arterial Blood Carboxyhemoglobin 0.3 Arterial Blood Methemoglobin 0.2 Blood Gas A-a O2 Differential 552.8 H Oxyhemoglobin Percent 97.8 Total Hemoglobin 11.6 L Blood Gas Temperature 37.0 Blood Gas Modality HFNC FiO2 100.0 Blood Gas Notified Whom TM Blood Gas Notified Time 04/29/2017 9:02:59 AM Creatine Kinase 84 Creatine Kinase Index 4.3 Creatinine Kinase MB (Mass) 3.57 H Troponin I 0.025 Urine Opiates Screen Negative Urine Barbiturates Positive Urine Amphetamines Screen POSITIVE Urine Benzodiazepines Screen Negative Urine Cocaine Screen Negative Urine Cannabinoids Negative White Blood Count 13.3 H Red Blood Count 2.96 #L Hemoglobin 7.8 #L Hematocrit 25.5 #L Mean Corpuscular Volume 86.1 Mean Corpuscular Hemoglobin 26.4 L Mean Corpuscular Hemoglobin Concent 30.6 L Red Cell Distribution Width 16.8 H Platelet Count 349 # Mean Platelet Volume 11.1 H Neutrophils % 77.1 H Lymphocytes % 12.8 L Monocytes % 8.9 Eosinophils % 0.1 Basophils % 0.2 Nucleated Red Blood Cells % 0.6 H Neutrophils # 10.3 H Lymphocytes # 1.7 Monocytes # 1.2 H Eosinophils # 0.0 Basophils # 0.0 Nucleated Red Blood Cells # 0.1 H Sodium Level 138 Potassium Level 4.2 Chloride Level 107 Carbon Dioxide Level 22 Anion Gap 13 Blood Urea Nitrogen 24 H Creatinine 0.89 Glucose Level 97 Calcium Level 7.9 L Phosphorus Level 3.4 Magnesium Level 1.9 Total Bilirubin 0.1 L Direct Bilirubin 0.00 Indirect Bilirubin 0.1 Aspartate Amino Transf (AST/SGOT) 24 Alanine Aminotransferase (ALT/SGPT) 26 Alkaline Phosphatase 153 H Total Protein 5.3 L Albumin 2.7 #L Globulin 2.60 Albumin/Globulin Ratio 1.03 Medications Medications Current Medications Ondansetron HCl (Zofran Inj) 4 mg Q6H PRN IV NAUSEA AND/OR VOMITING; Start at 13:30 Acetaminophen (Tylenol Tab) 650 mg Q6H PRN PO PAIN LEVEL 1-3 OR FEVER Last administered on 04/30/17 07:52; Admin Dose 650 MG; Start 04/29/17 at 13:30 Lorazepam (Ativan) 0.5 mg Q8H PRN IV ANXIETY Last administered on 04/30/17 07: 52; Admin Dose 0.5 MG; Start 04/29/17 at 13:30 Labetalol HCl 5 mg 5 mg Q6H PRN IV SBP GREATER THAN 160; Start 04/29/17 at 14: 00 Ceftriaxone Sodium (Rocephin) 50 ml @ 100 mls/hr Q24H IVPB Last administered on 04/30/17 07:36; Admin Dose 100 MLS/HR; Start 04/30/17 at 07:00 TAMMY RUIZ MD Apr 30, 2017 08:29
[2017-04-30] MEDS ORDERED: FUROSEMIDE 40 MG INJ IV ONE (08:30)
--- NOTE | 2017-04-30 09:29 | CONS ---
Date/Time of Note Date/Time of Note DATE: 04/30/17 TIME: 09:26 Assessment/Plan Assessment/Plan Additional Assessment/Plan Chest x-ray was reviewed from today which is showing significant improvement in bilateral severe pneumonia. Assessment recommendations; 1. Patient admitted for severe bilateral pneumonia with significant clinical and radiological improvement. 2. Currently at 26 weeks. 3. No other comorbid conditions. Continue current treatment. Rocephin has been discontinued and the patient needs to be continued on intravenous Zithromax and Zosyn. Consultation Date/Type/Reason Admit Date/Time Initial Consult Date 04/29/17 Type of Consultation: Pulmonary 24 HR Interval Summary Free Text/Dictation Condition is improved significantly. Denies any coughing wheezing fever chills. Shortness of breath also has improved markedly. General exam; young woman, awake alert currently in no distress. Exam/Review of Systems Vital Signs Vitals Vital Signs Date Time Temp Pulse Resp B/P Pulse Ox O2 Delivery O2 Flow Rate FiO2 04/30/17 09:01 106 29 103/64 100 High Flow 04/30/17 07:37 40 04/30/17 07:00 5.0 04/30/17 04:30 97.9 Intake and Output 04/29/17 04/29/17 04/30/17 15:00 23:00 07:00 Intake Total 50 ml 100 ml Balance 50 ml 100 ml Exam HEENT examination; supple neck, no JVD. No lymphadenopathy. Midline trachea. No thyromegaly. Dentition is fair. Chest examination; clear to auscultation. S1-S2 audible, no murmurs. Abdomen examination; soft, bowel sounds audible. Patient is gravid. Extremity examination; no peripheral edema. SPORTS EQUIPMENT REPAIRER examination; no focal deficit. Results Result Diagram: 04/30/17 0540 04/30/17 0540 Results 24 hrs Laboratory Tests Test 04/29/17 16:20 04/30/17 01:23 04/30/17 05:40 Creatine Kinase 84 Creatine Kinase Index 4.3 Creatinine Kinase MB (Mass) 3.57 H Troponin I 0.025 Urine Opiates Screen Negative Urine Barbiturates Positive Urine Amphetamines Screen POSITIVE Urine Benzodiazepines Screen Negative Urine Cocaine Screen Negative Urine Cannabinoids Negative White Blood Count 13.3 H Red Blood Count 2.96 #L Hemoglobin 7.8 #L Hematocrit 25.5 #L Mean Corpuscular Volume 86.1 Mean Corpuscular Hemoglobin 26.4 L Mean Corpuscular Hemoglobin Concent 30.6 L Red Cell Distribution Width 16.8 H Platelet Count 349 # Mean Platelet Volume 11.1 H Neutrophils % 77.1 H Lymphocytes % 12.8 L Monocytes % 8.9 Eosinophils % 0.1 Basophils % 0.2 Nucleated Red Blood Cells % 0.6 H Neutrophils # 10.3 H Lymphocytes # 1.7 Monocytes # 1.2 H Eosinophils # 0.0 Basophils # 0.0 Nucleated Red Blood Cells # 0.1 H Sodium Level 138 Potassium Level 4.2 Chloride Level 107 Carbon Dioxide Level 22 Anion Gap 13 Blood Urea Nitrogen 24 H Creatinine 0.89 Glucose Level 97 Calcium Level 7.9 L Phosphorus Level 3.4 Magnesium Level 1.9 Total Bilirubin 0.1 L Direct Bilirubin 0.00 Indirect Bilirubin 0.1 Aspartate Amino Transf (AST/SGOT) 24 Alanine Aminotransferase (ALT/SGPT) 26 Alkaline Phosphatase 153 H Total Protein 5.3 L Albumin 2.7 #L Globulin 2.60 Albumin/Globulin Ratio 1.03 Medications Medications Current Medications Ondansetron HCl (Zofran Inj) 4 mg Q6H PRN IV NAUSEA AND/OR VOMITING; Start at 13:30 Acetaminophen (Tylenol Tab) 650 mg Q6H PRN PO PAIN LEVEL 1-3 OR FEVER Last administered on 04/30/17 07:52; Admin Dose 650 MG; Start 04/29/17 at 13:30 Lorazepam (Ativan) 0.5 mg Q8H PRN IV ANXIETY Last administered on 04/30/17 07: 52; Admin Dose 0.5 MG; Start 04/29/17 at 13:30 Labetalol HCl (Labetalol) 5 mg Q6H PRN IV SBP GREATER THAN 160; Start 04/29/17 at 14:00 VICTORINO LOYOLA 17, 2017 09:29
[2017-04-30] MEDS: PIPER-TAZO 3.375 GM IV (PMX) 100 ML IVPB SCH ×2 (09:40→19:09)
[2017-04-30 10:04] LABS: RETICULOCYTE COUNT % 3.2 % (0.5-1.5)
[2017-04-30 10:22] LABS: IRON 25 ug/dl (35-150)
[2017-04-30 10:31] LABS: TOTAL IRON BINDING CAPACITY 384 ug/dl (241-421)
[2017-04-30 13:10] LABS: FOLATE 19.6 ng/ml (2.8-20.0)
[2017-04-30] MEDS ORDERED: ACETAMINOPHEN 325 MG TAB ONE ×2 (14:46→20:20)
[2017-04-30] MEDS ORDERED: LORAZEPAM 2 MG INJ ONE (18:13)
--- NOTE | 2017-04-30 20:46 | QN ---
Documentation Comment Laborist 27 y.o. with an IUP at 33 weeks by US and admitted with severe respiratory distress. Pt is still in the ER due to an absence of an available bed in the ICU as with several other patients. Work-up thus far is pointing towards pulmonary edema with an ejection fraction of 25% on ECHO and chest XR consistent with that as well. Pt is being concurrently treated for pneumonia with antibiotics (Rocephin and Zosyn, and did receive one dose of Zithromax) due to the unclear nature of the presentation. Pt is sleeping and barely arousable after one dose of Ativan. She has a positive drug screen for amphetamines and barbituates.WBC is 13.5. Hgb was 10.7 and is now 7.8. D-Dimers were very elevated.Pt is being followed by the hospitalist and pulmonary and cardiology. NST's for the baby are being done q 6-8 hours. Today the baseline is 160 bpm with accels to 175 and no decels but is overall more tachycardic then yesterday. There is however no indication to intervene on behalf of the baby at this point and obviously the pt is still not stable. Will continue to follow. ASAEL HOLLY MD Apr 30, 2017 18:58
[2017-04-30 22:00] VITALS: TEMP 99
[2017-05-01] VITALS (19 sets, daily range): BP systolic 107–149; BP diastolic 77–116; PULSE 110–141; RESP 18–45; Ht 152.4 cm; Wt 59.0 kg
[2017-05-01] MEDS ORDERED: LORAZEPAM 2 MG INJ IV PRN (01:00)
[2017-05-01] MEDS ORDERED: ONDANSETRON 4 MG INJ ONE (06:32)
[2017-05-01] MEDS: LORAZEPAM 2 MG INJ IV PRN ×2 (10:08→16:04)
--- NOTE | 2017-05-01 11:17 | CONS ---
Date/Time of Note Date/Time of Note DATE: 05/01/17 TIME: 11:15 Assessment/Plan Assessment/Plan Additional Assessment/Plan Assessment recommendations; 1. Patient admitted with severe bilateral pneumonia with significant clinical improvement. 2. Currently at 2627 weeks. 3. Anemia. Continue current treatment. Patient on Zithromax and Zosyn. Will obtain follow -up chest x-ray in 24 hours. Consultation Date/Type/Reason Admit Date/Time Apr 29, 2017 at 07:23 Initial Consult Date 04/29/17 Type of Consultation: Pulmonary 24 HR Interval Summary Free Text/Dictation Patient condition stable. Denies any significant shortness of breath, denies any coughing wheezing sputum production fever chills or chest pain. Complaining of insomnia. General exam; young woman, awake currently in no distress. Exam/Review of Systems Vital Signs Vitals Vital Signs Date Time Temp Pulse Resp B/P Pulse Ox O2 Delivery O2 Flow Rate FiO2 05/01/17 09:13 128 05/01/17 09:00 33 110/96 91 High Flow 05/01/17 08:00 98.0 05/01/17 05:37 30 05/01/17 04:35 5.0 Exam HEENT exam; supple neck, no JVD. No lymphadenopathy. Midline trachea. No thyromegaly. Patient has fair dentition. Chest exam; clear to auscultation. S1-S2 audible, no murmurs. Regular rhythm. Abdomen examination; soft, nontender. Patient is gravid. Extremity examination; no peripheral edema. Pulses 1+ bilaterally. EMPLOYEE RELATIONS MANAGER examination; no focal deficit. Results Result Diagram: 04/30/17 0540 04/30/17 0540 Results 24 hrs Laboratory Tests Test 05/01/17 01:03 Bedside Glucose 105 Medications Medications Current Medications Lorazepam 0.5 mg 0.5 mg Q6H PRN IV AGITATION/ANXIETY Last administered on t 10:08; Admin Dose 0.5 MG; Start 05/01/17 at 10:30 Piperacillin Sod/ Tazobactam Sod (Zosyn 3.375gm/ 100 ml (Pmx)) 100 ml @ 25 mls/ hr TID@02,10,18 IVPB ; Start 05/01/17 at 18:00; Status VICTORINO MIXON May 01, 2017 11:17
--- NOTE | 2017-05-01 11:37 | PN ---
Date/Time of Note Date/Time of Note DATE: 05/01/17 TIME: 11:33 Assessment/Plan VTE Prophylaxis VTE Prophylaxis Intervention: anti-embolic stocking Lines/Catheters IV Catheter Type (from Nrsg): Peripheral IV Central line still needed: No Urinary Cath still in place: No Assessment/Plan Assessment/Plan 1. pulm sever resp distress, still reuiring 30% Fio2 on high flow, etiology likely chf. however, consider also atypical pna (PCP??), check HIV checkl CD4; is bronchoscopy going to be helpful?? 2. cards: cardiomyopathy, nos, likely related ot amphetamine, consider also induced, cards eval (b) tachycardia, likely multifactorial including hypoxemia, anemia, 3. anemai with Fe deficiency, add Fe, however am reluctant to add transfusion with suspected chf 4. Subjective 24 Hr Interval Summary Free Text/Dictation no complaints, still sob, worse with laying down Exam/Review of Systems Vital Signs Vitals Vital Signs Date Time Temp Pulse Resp B/P Pulse Ox O2 Delivery O2 Flow Rate FiO2 05/01/17 11:00 127 42 131/87 99 High Flow 05/01/17 08:00 98.0 05/01/17 05:37 30 05/01/17 04:35 5.0 Exam Constitutional: alert Respiratory: clear to auscultation Cardiovascular: regular rate and rhythm Gastrointestinal: soft Results Result Diagram: 04/30/17 0540 04/30/17 0540 Results 24 hrs Laboratory Tests Test 05/01/17 01:03 Bedside Glucose 105 Medications Medications Current Medications Lorazepam 0.5 mg 0.5 mg Q6H PRN IV AGITATION/ANXIETY Last administered on t 10:08; Admin Dose 0.5 MG; Start 05/01/17 at 10:30 Piperacillin Sod/ Tazobactam Sod 100 ml @ 25 mls/hr TID@06,14,22 IVPB ; Start 05/01/17 at 14:00 Azithromycin/ Sodium Chloride (Zithromax/NS) 250 ml @ 250 mls/hr Q24H IVPB ; Start 05/01/17 at 12:00 TAMMY RUIZ MD May 01, 2017 11:37
[2017-05-01] MEDS ORDERED: LABETALOL HCL 20MG INJ IV PRN (12:00)
[2017-05-01] MEDS: AZITHROMYCIN 500 MG in SOD CHLORIDE 0.9% 250 ML IVPB SCH (12:40)
--- NOTE | 2017-05-01 13:17 | CONS ---
Date/Time of Note Date/Time of Note DATE: 05/01/17 TIME: 13:08 Assessment/Plan Assessment/Plan Additional Assessment/Plan Respiratory failure Acute decompensated systolic congestive heart failure Severe cardiomyopathy Methamphetamine use -Patient with possible pneumonia versus ARDS with likely an element of decompensated congestive heart failure. Would give intermittent IV diuretics as blood pressure and renal function tolerates. Antibiotics as per primary team. No VON inhibitor at the current time given patient is . Maintain potassium above 4.0 and magnesium above 2.0. Consultation Date/Type/Reason Admit Date/Time Apr 29, 2017 at 07:23 Type of Consultation: cv Reason for Consultation CHF Hx of Present Illness This is a 27-year-old female who presents with shortness of breath. Patient found to be as well as with methamphetamine use. Echocardiogram performed also demonstrated severe cardia myopathy. Cardiology consultation was requested for assistance with management. Patient currently denies any chest pain or shortness of breath. She recurrently falls asleep and is intermittently compliant with history taking and examination. She does complain of mild cough which is nonproductive. She denies any chest pain, dizziness. Unable to be performed at the current time given patient's mental status. Respiratory: wheezing Past Medical History Social History Smoking Status: Former smoker Drug Use: other (Methamphetamine use) Exam/Review of Systems Vital Signs Vitals Vital Signs Date Time Temp Pulse Resp B/P Pulse Ox O2 Delivery O2 Flow Rate FiO2 05/01/17 12:30 131 05/01/17 11:00 42 131/87 99 High Flow 05/01/17 08:00 98.0 05/01/17 05:37 30 05/01/17 04:35 5.0 Exam sleeping but arrousable, follows commands intermittently Head: normocephalic Respiratory: other (Coarse breath sounds bilaterally with mild scattered rhonchi, no wheezing) Cardiovascular: other (S1-S2 heard), regular rate and rhythm, systolic murmur Gastrointestinal: bowel sounds, non-tender, soft Extremities: edema (Trace) Results Result Diagram: 04/30/17 0540 04/30/17 0540 Results 24 hrs Laboratory Tests Test 05/01/17 01:03 Bedside Glucose 105 Medications Medications Current Medications Lorazepam 0.5 mg 0.5 mg Q6H PRN IV AGITATION/ANXIETY Last administered on t 10:08; Admin Dose 0.5 MG; Start 05/01/17 at 10:30 Piperacillin Sod/ Tazobactam Sod 100 ml @ 25 mls/hr TID@06,14,22 IVPB ; Start 05/01/17 at 14:00 Azithromycin/ Sodium Chloride (Zithromax/NS) 250 ml @ 250 mls/hr Q24H IVPB Last administered on 05/01/17t 12:40; Admin Dose 250 MLS/HR; Start 05/01/17 at 12:00 Polysaccharide Iron Complex (Niferex-150) 1 cap TID PO ; Start 05/01/17 at 13:00 Labetalol HCl (Labetalol) 5 mg Q6H PRN IV ELEVATED BLOOD PRESSURE; Start at 12:00 Acetaminophen (Tylenol Tab) 650 mg Q6H PRN PO PAIN AND OR ELEVATED TEMP; Start 05/01/17 at 12:00 Ondansetron HCl (Zofran Inj) 4 mg Q6H PRN IV NAUSEA AND/OR VOMITING; Start at 12:00 Procedures Procedures ECG demonstrates sinus tachycardia at 143 bpm, QRS 70 ms, nonspecific STT wave abnormalities Bradford Vinson DO May 01, 2017 13:17
[2017-05-01] MEDS ORDERED: MAGNESIUM SULFATE 1 GM/D5W 100 ML IVPB ONE (13:30)
[2017-05-01] MEDS ORDERED: FUROSEMIDE 20 MG INJ IV ONE ×2 (13:30)
[2017-05-01] MEDS: POLYSACCHARIDE IRON COMPLEX CAP PO SCH ×2 (13:48→20:45)
[2017-05-01] MEDS: ONDANSETRON 4 MG INJ IV PRN (13:49)
[2017-05-01] MEDS: PIPER-TAZO 3.375 GM IV (PMX) 100 ML IVPB SCH ×2 (13:54→21:51)
--- NOTE | 2017-05-01 14:49 | QN ---
Documentation Comment OB- Laborist Rounding Pt denies c/o. Reports movement, denies LOF, VB or UCs VS: P 135 BP 127/83 R 36 Gen: sleeping, difficult to arouse initially and when aroused, irritable Abd: soft, gravid, nontender Ext: nontender, symmetric, no edema FHT: baseline 150s-160s, mod shazia, +accels, no decels [place]: acontractile Labs: none new Imaging: none new Assessment IUP at 33+3, breech presentation Reactive NST CHF vs pulm edema vs atypical PNA, receiving Zosyn and Zithromax PSA, pos Utox for barbituates and amphetamines Tachycardia Anemia Plan Appreciate Medicine/ICU care. Will defer management of pulmonary and cardiac disease to primary team. At this time well being is reassuring and there is no e/o labor thus no Obstetrical intervention is warranted. Should pt start chidi, OB should be contacted immediately especially given breech presentation of fetus on admission U/S. Continue NST q8H for now, however should patient's clinical course worsen or NSTs become concerning for FWB, would recommend changing to continuous monitoring KAROLYN SERNA MD May 01, 2017 14:49
[2017-05-02] VITALS (23 sets, daily range): BP systolic 99–132; BP diastolic 61–104; PULSE 103–137; RESP 19–39
[2017-05-02] MEDS: LORAZEPAM 2 MG INJ IV PRN ×4 (02:05→20:54)
[2017-05-02] MEDS ORDERED: FUROSEMIDE 20 MG INJ IV SCH (06:00)
[2017-05-02] MEDS: PIPER-TAZO 3.375 GM IV (PMX) 100 ML IVPB SCH ×3 (06:14→22:00)
[2017-05-02 06:39] LABS: ADD SCAN DIFF NO
[2017-05-02 06:53] LABS: BASOPHILS % 0.2 % (0.0-2.0); EOSINOPHILS # 0.1 10^3/ul (0.0-0.5); HEMATOCRIT 25.3 % (37.0-47.0); HEMOGLOBIN 7.8 g/dl (12.0-16.0); LYMPHOCYTES # 1.8 10^3/ul (0.8-2.9); LYMPHOCYTES % 15.3 % (15.0-51.0); MEAN CORPUSCULAR HEMOGLOBIN 26.7 pg (29.0-33.0); MEAN CORPUSCULAR HGB CONC 30.8 g/dl (32.0-37.0); MEAN CORPUSCULAR VOLUME 86.6 fl (82.0-101.0); MEAN PLATELET VOLUME 10.7 fl (7.4-10.4); MONOCYTE # 0.6 10^3/ul (0.3-0.9); MONOCYTES % 5.5 % (0.0-11.0); NEUTROPHIL # 8.8 10^3/ul (1.6-7.5); NEUTROPHILS % 77.1 % (39.0-77.0); NUCLEATED RED BLOOD CELLS # 0.2 10^3/ul (0.0-0.0); NUCLEATED RED BLOOD CELLS% 1.7 /100WBC (0.0-0.0); PLATELET COUNT 339 10^3/UL (140-415); RED BLOOD COUNT 2.92 10^6/ul (4.20-5.40); RED CELL DISTRIBUTION WIDTH 16.8 % (11.5-14.5); WHITE BLOOD COUNT 11.4 10^3/ul (4.8-10.8)
[2017-05-02 07:10] LABS: ALANINE AMINOTRANSFERASE 24 IU/L (13-69); ALBUMIN 2.6 g/dl (3.3-4.9); ALBUMIN/GLOBULIN RATIO 1.04; ALKALINE PHOSPHATASE 149 IU/L (42-121); ANION GAP 12 (8-16); ASPARTATE AMINO TRANSFERASE 22 IU/L (15-46); BILIRUBIN,INDIRECT 0.1 mg/dl (0-1.1); BILIRUBIN,TOTAL 0.1 mg/dl (0.2-1.3); BLOOD UREA NITROGEN 9 mg/dl (7-20); CALCIUM 8.2 mg/dl (8.4-10.2); CARBON DIOXIDE 21 mmol/L (21-31); CHLORIDE 107 mmol/L (97-110); CREATININE 0.76 mg/dl (0.44-1.00); GLUCOSE 107 mg/dl (70-220); POTASSIUM 3.8 mmol/L (3.5-5.1); SODIUM 136 mmol/L (135-144); TOTAL PROTEIN 5.1 g/dl (6.1-8.1)
--- NOTE | 2017-05-02 08:29 | RADRPT ---
PROCEDURE: XR Chest. CLINICAL INDICATION: Pneumonia TECHNIQUE: A single AP view of the chest was obtained. COMPARISON: Chest x-ray dated 04/30/2017 FINDINGS: There are diffuse bilateral alveolar opacities. No pleural effusion or pneumothorax is seen. The c ardiomediastinal silhouette is moderately enlarged. The osseous structures are unremarkable. IMPRESSION: 1. Diffuse bilateral alveolar opacities may reflect pulmonary edema or multifocal pneumonia. Overa ll, no significant interval change. 2. Moderate cardiomegaly. RPTAT: HH .Poonam Alvarez MD, MD Date Time Electronically viewed and signed by .Poonam Alvarez MD, MD on 05/02/2017 08:28 .G/
[2017-05-02] MEDS: POLYSACCHARIDE IRON COMPLEX CAP PO SCH (09:07)
--- NOTE | 2017-05-02 10:03 | PN ---
Date/Time of Note Date/Time of Note DATE: 05/02/17 TIME: 09:23 Assessment/Plan VTE Prophylaxis VTE Prophylaxis Intervention: SCD's Lines/Catheters IV Catheter Type (from Nrs): Peripheral IV Urinary Cath still in place: No Assessment/Plan Assessment/Plan 27-year-old female: 1. Acute Respiratory Failure distress likely secondary to congestive heart failure and pulmonary edema, ? multifocal PNA. Continue Lasix daily as tolerated Continue IV abx Hi flow for now. 2. Hypertension, which is secondary to combination of anxiety and respiratory distress. Labetalol prn. 3. 33 weeks viable . Relay Repairer/laborist chimney construction supervisor has been consulted. Patient is to have a heart monitor placed so that she can be followed while she is in the ICU. All medications have to be double checked for safety. 4. Cardiomyopathy, nos, likely related ot amphetamine, consider also induced, EF 25 % Sinus Tachy likely multifactorial including hypoxemia, anemia, . 5. Anemia with Fe deficiency: agree with Iron supplement and may need vitamin. 6. Anxiety Disorder , per patient report on Ativan 5. Methamphetamine use. sales agent business services to see today Continue Ativan prn anxiety Prophylaxis: Sequential compression devices to lower extremity for deep vein thrombosis prophylaxis. Pepcid gastrointestinal prophylaxis. DISPOSITION: ICU and close monitoring. Pulmonary and laborist/sales ledger clerk following. Subjective 24 Hr Interval Summary Free Text/Dictation Patient doing OK On Hi Flow Afebrile and WBC better Exam/Review of Systems Vital Signs Vitals Vital Signs Date Time Temp Pulse Resp B/P Pulse Ox O2 Delivery O2 Flow Rate FiO2 05/02/17 08:25 96 40 05/02/17 06:00 120 31 125/85 05/01/17 19:30 Nasal Cannula 05/01/17 16:00 99.2 05/01/17 04:35 5.0 Intake and Output 05/01/17 05/01/17 05/02/17 15:00 23:00 07:00 Intake Total 710 ml 945 ml 1026 ml Output Total 200 ml 1325 ml Balance 710 ml 745 ml -299 ml Exam Constitutional: alert, oriented, other (lethargic ) Respiratory: diminished breath sounds (bilaterally ) Cardiovascular: other (Sinus tachycardia) Gastrointestinal: other (Gravid abdo ) Musculoskeletal: nl extremities to inspection, other (no edema, clubbing or cyanosis ) Extremities: normal pulses Results Result Diagram: 6/19/17 0538 05/02/17 0538 Results 24 hrs Laboratory Tests Test 05/02/17 05:38 White Blood Count 11.4 H Red Blood Count 2.92 L Hemoglobin 7.8 L Hematocrit 25.3 L Mean Corpuscular Volume 86.6 Mean Corpuscular Hemoglobin 26.7 L Mean Corpuscular Hemoglobin Concent 30.8 L Red Cell Distribution Width 16.8 H Platelet Count 339 Mean Platelet Volume 10.7 H Neutrophils % 77.1 H Lymphocytes % 15.3 Monocytes % 5.5 Eosinophils % 1.0 Basophils % 0.2 Nucleated Red Blood Cells % 1.7 H Neutrophils # 8.8 H Lymphocytes # 1.8 Monocytes # 0.6 Eosinophils # 0.1 Basophils # 0.0 Nucleated Red Blood Cells # 0.2 H Sodium Level 136 Potassium Level 3.8 Chloride Level 107 Carbon Dioxide Level 21 Anion Gap 12 Blood Urea Nitrogen 9 # Creatinine 0.76 Glucose Level 107 Calcium Level 8.2 L Total Bilirubin 0.1 L Direct Bilirubin 0.00 Indirect Bilirubin 0.1 Aspartate Amino Transf (AST/SGOT) 22 Alanine Aminotransferase (ALT/SGPT) 24 Alkaline Phosphatase 149 H Total Protein 5.1 L Albumin 2.6 L Globulin 2.50 Albumin/Globulin Ratio 1.04 HIV (1&2) Antibody NEGATIVE Medications Medications Current Medications Lorazepam 0.5 mg 0.5 mg Q6H PRN IV AGITATION/ANXIETY Last administered on 09:07; Admin Dose 0.5 MG; Start 05/01/17 at 10:30 Piperacillin Sod/ Tazobactam Sod 100 ml @ 25 mls/hr TID@,22 IVPB Last administered on 05/02/17 06:14; Admin Dose 25 MLS/HR; Start 05/01/17 at 14:00 Azithromycin/ Sodium Chloride (Zithromax/NS) 250 ml @ 250 mls/hr Q24H IVPB Last administered on 05/01/17 12:40; Admin Dose 250 MLS/HR; Start 05/01/17 at 12:00 Polysaccharide Iron Complex (Niferex-150) 1 cap TID PO Last administered on 09:07; Admin Dose 1 CAP; Start 05/01/17 at 13:00 Labetalol HCl (Labetalol) 5 mg Q6H PRN IV ELEVATED BLOOD PRESSURE; Start at 12:00 Acetaminophen (Tylenol Tab) 650 mg Q6H PRN PO PAIN AND OR ELEVATED TEMP; Start 05/01/17 at 12:00 Ondansetron HCl (Zofran Inj) 4 mg Q6H PRN IV NAUSEA AND/OR VOMITING Last administered on 05/01/17 13:49; Admin Dose 4 MG; Start 05/01/17 at 12:00 Furosemide (Lasix) 20 mg DAILY@06 IV Last administered on 05/02/17 06:15; Admin Dose 20 MG; Start 05/02/17 at 06:00 RUPAL RICK May 02, 2017 09:49
[2017-05-02] MEDS: MULTIVIT/MIN/FOLATE/IRON/PREN TAB PO SCH (11:34)
[2017-05-02] MEDS: AZITHROMYCIN 500 MG in SOD CHLORIDE 0.9% 250 ML IVPB SCH (11:36)
--- NOTE | 2017-05-02 12:15 | CONS ---
Date/Time of Note Date/Time of Note DATE: 05/02/17 TIME: 12:13 Assessment/Plan Assessment/Plan Additional Assessment/Plan Chest x-ray was reviewed from today which is showing severe cardiomegaly with bilateral pulmonary edema. Assessment recommendations; 1. Patient admitted with shortness of breath likely -induced cardiomyopathy. Causing pulmonary edema. 2. Possibly superimposed bilateral severe pneumonia as well. 3. Patient currently . Increase Lasix to 40 mg IV every 12 hours at least for 2-4 doses. Will obtain follow-up chest x-ray in 24 hours. Consider dobutamine. Consultation Date/Type/Reason Admit Date/Time Apr 29, 2017 at 07:23 Initial Consult Date 04/29/17 Type of Consultation: Pulmonary/critical care 24 HR Interval Summary Free Text/Dictation Patient condition is tenuous at best. However she reports decreased shortness of breath. Denies any coughing, wheezing, fever chills or sputum production. General exam; young woman, awake currently in no distress. Able to lay down flat in bed. Exam/Review of Systems Vital Signs Vitals Vital Signs Date Time Temp Pulse Resp B/P Pulse Ox O2 Delivery O2 Flow Rate FiO2 05/02/17 11:35 95 40 05/02/17 11:00 137 28 118/70 High Flow 05/02/17 08:00 98.2 05/01/17 04:35 5.0 Intake and Output 05/01/17 05/01/17 05/02/17 15:00 23:00 07:00 Intake Total 710 ml 945 ml 1026 ml Output Total 200 ml 1325 ml Balance 710 ml 745 ml -299 ml Exam HEENT exam; supple neck, no JVD. No lymphadenopathy. Midline trachea. No thyromegaly. Pharynx is clear. Patient has fair dentition. Chest examined; diminished but clear vessel. S1-S2 audible, no murmurs. Regular rhythm. Tachycardic. No gallop. Abdomen exam is; soft, patient is gravid. Bowel sounds audible. Extremity exam is; no peripheral edema. Pulses 1+ bilaterally. AIR BRAKE OPERATOR examination; no focal deficit. Results Result Diagram: 05/02/17 0538 05/02/17 0538 Results 24 hrs Laboratory Tests Test 05/02/17 05:38 White Blood Count 11.4 H Red Blood Count 2.92 L Hemoglobin 7.8 L Hematocrit 25.3 L Mean Corpuscular Volume 86.6 Mean Corpuscular Hemoglobin 26.7 L Mean Corpuscular Hemoglobin Concent 30.8 L Red Cell Distribution Width 16.8 H Platelet Count 339 Mean Platelet Volume 10.7 H Neutrophils % 77.1 H Lymphocytes % 15.3 Monocytes % 5.5 Eosinophils % 1.0 Basophils % 0.2 Nucleated Red Blood Cells % 1.7 H Neutrophils # 8.8 H Lymphocytes # 1.8 Monocytes # 0.6 Eosinophils # 0.1 Basophils # 0.0 Nucleated Red Blood Cells # 0.2 H Sodium Level 136 Potassium Level 3.8 Chloride Level 107 Carbon Dioxide Level 21 Anion Gap 12 Blood Urea Nitrogen 9 # Creatinine 0.76 Glucose Level 107 Calcium Level 8.2 L Total Bilirubin 0.1 L Direct Bilirubin 0.00 Indirect Bilirubin 0.1 Aspartate Amino Transf (AST/SGOT) 22 Alanine Aminotransferase (ALT/SGPT) 24 Alkaline Phosphatase 149 H Total Protein 5.1 L Albumin 2.6 L Globulin 2.50 Albumin/Globulin Ratio 1.04 HIV (1&2) Antibody NEGATIVE Medications Medications Current Medications Lorazepam 0.5 mg 0.5 mg Q6H PRN IV AGITATION/ANXIETY Last administered on 09:07; Admin Dose 0.5 MG; Start 05/01/17 at 10:30 Piperacillin Sod/ Tazobactam Sod 100 ml @ 25 mls/hr TID@06,14,22 IVPB Last administered on 05/02/17 06:14; Admin Dose 25 MLS/HR; Start 05/01/17 at 14:00 Azithromycin/ Sodium Chloride (Zithromax/NS) 250 ml @ 250 mls/hr Q24H IVPB Last administered on 05/02/17 11:36; Admin Dose 250 MLS/HR; Start 05/01/17 at 12:00 Labetalol HCl (Labetalol) 5 mg Q6H PRN IV ELEVATED BLOOD PRESSURE; Start at 12:00 Acetaminophen (Tylenol Tab) 650 mg Q6H PRN PO PAIN AND OR ELEVATED TEMP; Start 05/01/17 at 12:00 Ondansetron HCl (Zofran Inj) 4 mg Q6H PRN IV NAUSEA AND/OR VOMITING Last administered on 05/01/17 13:49; Admin Dose 4 MG; Start 05/01/17 at 12:00 Furosemide (Lasix) 20 mg DAILY@06 IV Last administered on 05/02/17 06:15; Admin Dose 20 MG; Start 05/02/17 at 06:00 Prenat Multivit/ [place]/Iron/Folic Ac ( S) 1 tab DAILY PO Last administered on 05/02/17 11:34; Admin Dose 1 TAB; Start 05/02/17 at 10:00 Polysaccharide Iron Complex (Niferex-150) 1 cap DAILY PO ; Start 05/03/17 at 09: 00 VICTORINO LOYOLA May 02, 2017 12:15
--- NOTE | 2017-05-02 13:41 | CONS ---
Date/Time of Note Date/Time of Note DATE: 05/02/17 TIME: 13:40 Assessment/Plan Assessment/Plan Additional Assessment/Plan Respiratory failure Acute decompensated systolic congestive heart failure Severe cardiomyopathy Methamphetamine use Possible pneumonia -Diuretics have been increased by our pulmonary colleagues, maintain potassium above 4.0 magnesium above 2.0. No VON inhibitor at the current time given patient . Blood pressure remains stable, would consider initiation of afterload reducing agent. Consultation Date/Type/Reason Admit Date/Time Apr 29, 2017 at 07:23 Initial Consult Date 04/29/17 Type of Consultation: cv 24 HR Interval Summary Free Text/Dictation Patient complaining of fatigue and not fully compliant with history taking. Takes off oxygen continuously Exam/Review of Systems Vital Signs Vitals Vital Signs Date Time Temp Pulse Resp B/P Pulse Ox O2 Delivery O2 Flow Rate FiO2 05/02/17 12:00 129 05/02/17 11:35 95 40 05/02/17 11:00 28 118/70 High Flow 05/02/17 08:00 98.2 05/01/17 04:35 5.0 Intake and Output 05/01/17 05/01/17 05/02/17 15:00 23:00 07:00 Intake Total 710 ml 945 ml 1026 ml Output Total 200 ml 1325 ml Balance 710 ml 745 ml -299 ml Exam Sleeping but arousable, no apparent distress Head: normocephalic Respiratory: other (Coarse breath sounds bilaterally, no wheezing) Cardiovascular: other (S1-S2 heard), regular rate and rhythm (Tachycardic), systolic murmur Gastrointestinal: bowel sounds, non-tender, soft Extremities: edema Results Result Diagram: 05/02/17 0538 05/02/17 0538 Results 24 hrs Laboratory Tests Test 05/02/17 05:38 White Blood Count 11.4 H Red Blood Count 2.92 L Hemoglobin 7.8 L Hematocrit 25.3 L Mean Corpuscular Volume 86.6 Mean Corpuscular Hemoglobin 26.7 L Mean Corpuscular Hemoglobin Concent 30.8 L Red Cell Distribution Width 16.8 H Platelet Count 339 Mean Platelet Volume 10.7 H Neutrophils % 77.1 H Lymphocytes % 15.3 Monocytes % 5.5 Eosinophils % 1.0 Basophils % 0.2 Nucleated Red Blood Cells % 1.7 H Neutrophils # 8.8 H Lymphocytes # 1.8 Monocytes # 0.6 Eosinophils # 0.1 Basophils # 0.0 Nucleated Red Blood Cells # 0.2 H Sodium Level 136 Potassium Level 3.8 Chloride Level 107 Carbon Dioxide Level 21 Anion Gap 12 Blood Urea Nitrogen 9 # Creatinine 0.76 Glucose Level 107 Calcium Level 8.2 L Total Bilirubin 0.1 L Direct Bilirubin 0.00 Indirect Bilirubin 0.1 Aspartate Amino Transf (AST/SGOT) 22 Alanine Aminotransferase (ALT/SGPT) 24 Alkaline Phosphatase 149 H Total Protein 5.1 L Albumin 2.6 L Globulin 2.50 Albumin/Globulin Ratio 1.04 HIV (1&2) Antibody NEGATIVE Medications Medications Current Medications Lorazepam 0.5 mg 0.5 mg Q6H PRN IV AGITATION/ANXIETY Last administered on 09:07; Admin Dose 0.5 MG; Start 05/01/17 at 10:30 Piperacillin Sod/ Tazobactam Sod 100 ml @ 25 mls/hr TID@06,14,22 IVPB Last administered on 05/02/17 06:14; Admin Dose 25 MLS/HR; Start 05/01/17 at 14:00 Azithromycin/ Sodium Chloride (Zithromax/NS) 250 ml @ 250 mls/hr Q24H IVPB Last administered on 05/02/17 11:36; Admin Dose 250 MLS/HR; Start 05/01/17 at 12:00 Labetalol HCl (Labetalol) 5 mg Q6H PRN IV ELEVATED BLOOD PRESSURE; Start at 12:00 Acetaminophen (Tylenol Tab) 650 mg Q6H PRN PO PAIN AND OR ELEVATED TEMP; Start 05/01/17 at 12:00 Ondansetron HCl (Zofran Inj) 4 mg Q6H PRN IV NAUSEA AND/OR VOMITING Last administered on 05/01/17 13:49; Admin Dose 4 MG; Start 05/01/17 at 12:00 Prenat Multivit/ Cnc Technician/Iron/Folic Ac ( S) 1 tab DAILY PO Last administered on 05/02/17 11:34; Admin Dose 1 TAB; Start 05/02/17 at 10:00 Polysaccharide Iron Complex (Niferex-150) 1 cap DAILY PO ; Start 05/03/17 at 09: 00 Bradford Vinson DO May 02, 2017 13:41
[2017-05-02] MEDS: FUROSEMIDE 40 MG INJ IV SCH (18:35)
[2017-05-02] MEDS: ACETAMINOPHEN 325 MG TAB PO PRN (20:48)
--- NOTE | 2017-05-02 21:14 | QN ---
Documentation Comment May 02, 2017 Hospital note This patient is a 35 years old 3 para 1 1 with estimated date of confinement of May 09, 2017 She came to the hospital this morning for induction of labor On review her history she has a A1 gestational diabetes, on insulin On examination she is a well-developed well-nourished lady Her ear nose throat appears to be normal Neck was normal no neck vein distention no thyromegaly no lymph node enlargement anywhere in her body Chest was clear to auscultation and precaution Abdomen is soft, she was having occasional Fetus was in vertex presentation heart tone was normal with fairly good activity and occasional acceleration no deceleration On pelvic examination cervix was thick and closed Patient stayed in L& D for few hours And finally decided not to have induction of labor a left the hospital to be seen in the clinic for readmission another day Laboratory Tests Test 05/02/17 05:38 White Blood Count 11.410^3/ul Red Blood Count 2.9210^6/ul Hemoglobin 7.8g/dl Hematocrit 25.3% Mean Corpuscular Volume 86.6fl Mean Corpuscular Hemoglobin 26.7pg Mean Corpuscular Hemoglobin Concent 30.8g/dl Red Cell Distribution Width 16.8% Platelet Count 66649^3/UL Mean Platelet Volume 10.7fl Neutrophils % 77.1% Lymphocytes % 15.3% Monocytes % 5.5% Eosinophils % 1.0% Basophils % 0.2% Nucleated Red Blood Cells % 1.7/100WBC Neutrophils # 8.810^3/ul Lymphocytes # 1.810^3/ul Monocytes # 0.610^3/ul Eosinophils # 0.110^3/ul Basophils # 0.010^3/ul Nucleated Red Blood Cells # 0.210^3/ul Sodium Level 136mmol/L Potassium Level 3.8mmol/L Chloride Level 107mmol/L Carbon Dioxide Level 21mmol/L Anion Gap 12 Blood Urea Nitrogen 9mg/dl Creatinine 0.76mg/dl Glucose Level 107mg/dl Calcium Level 8.2mg/dl Total Bilirubin 0.1mg/dl Direct Bilirubin 0.00mg/dl Indirect Bilirubin 0.1mg/dl Aspartate Amino Transf (AST/SGOT) 22IU/L Alanine Aminotransferase (ALT/SGPT) 24IU/L Alkaline Phosphatase 149IU/L Total Protein 5.1g/dl Albumin 2.6g/dl Globulin 2.50g/dl Albumin/Globulin Ratio 1.04 HIV (1&2) Antibody NEGATIVE Current Medications Medications (Trade) Dose Ordered Sig/[place] Route PRN Reason Start Time Stop Time Status Last Admin Dose Admin Methylprednisolone Sodium Succinate 125 mg 125 mg ONCE ONCE IV 04/29/17 05:30 04/29/17 05:31 DC 04/29/17 05:10 Ceftriaxone Sodium 50 ml @ 100 mls/hr ONCE ONCE IVPB 04/29/17 07:00 04/29/17 07:29 DC 04/29/17 07:26 Magnesium Sulfate (Magnesium Sulfate 4 Gm/100 ml) 100 ml @ 25 mls/hr ONCE ONCE IVPB 04/29/17 09:30 04/29/17 13:29 DC Hydralazine HCl (Apresoline) 5 mg ONCE ONCE IV 04/29/17 09:30 04/29/17 09:31 DC 04/29/17 09:25 Lorazepam (Ativan) 0.5 mg ONCE ONCE IV 04/29/17 09:30 04/29/17 09:31 DC 04/29/17 09:32 Lorazepam (Ativan) 2 mg STK-MED ONCE .ROUTE 04/29/17 09:27 04/29/17 09:28 DC Mineral Oil (Fleet Mineral Oil Enema) 133 ml ONCE ONCE OR 04/29/17 10:00 04/29/17 10:01 DC IV Flush 10 ml 10 ml STK-MED ONCE .ROUTE 04/29/17 10:12 04/29/17 10:13 DC 04/29/17 10:42 Sodium Chloride (NS) 100 ml @ ud STK-MED ONCE .ROUTE 04/29/17 10:12 04/29/17 10:13 DC 04/29/17 10:43 Iodixanol (Visipaque Locm) 100 ml STK-MED ONCE .ROUTE 04/29/17 10:12 04/29/17 10:13 DC 04/29/17 10:43 Ondansetron HCl (Zofran Inj) 4 mg Q6H PRN IV NAUSEA AND/OR VOMITING 04/29/17 13:30 04/30/17 22:37 DC Acetaminophen (Tylenol Tab) 650 mg Q6H PRN PO PAIN LEVEL 1-3 OR FEVER 04/29/17 13:30 04/30/17 22:37 DC 04/30/17 20:22 Lorazepam 0.5 mg 0.5 mg Q8H PRN IV ANXIETY 04/29/17 13:30 04/30/17 22:37 DC 04/30/17 20:21 Piperacillin Sod/ Tazobactam Sod 100 ml @ 200 mls/hr ONCE ONCE IVPB 04/29/17 14:00 04/29/17 14:29 DC 04/29/17 14:55 Azithromycin/ Sodium Chloride (Zithromax/NS) 250 ml @ 250 mls/hr ONCE IVPB 04/29/17 14:00 04/29/17 14:59 DC 04/29/17 17:50 Labetalol HCl (Labetalol) 5 mg Q6H PRN IV SBP GREATER THAN 160 04/29/17 14:00 04/30/17 22:37 DC Furosemide 20 mg 20 mg ONCE ONCE IV 04/29/17 14:00 04/29/17 14:01 DC 04/29/17 15:09 Ceftriaxone Sodium (Rocephin) 50 ml @ 100 mls/hr Q24H IVPB 04/30/17 07:00 04/30/17 09:23 DC 04/30/17 07:36 Methylprednisolone Sodium Succinate (Solu-Medrol) 125 mg STK-MED ONCE .ROUTE 04/29/17 04:49 04/29/17 14:50 DC Furosemide 40 mg 40 mg ONCE ONCE IV 04/30/17 08:30 04/30/17 08:35 DC Piperacillin Sod/ Tazobactam Sod (Zosyn 3.375gm/ 100 ml (Pmx)) 100 ml @ 200 mls/hr Q8 IVPB 04/30/17 09:30 04/30/17 22:37 DC 04/30/17 19:09 Lorazepam (Ativan) 0.5 mg Q8 PRN IV ANXIETY 05/01/17 01:00 05/01/17 10:05 DC 05/01/17 02:47 Ondansetron HCl (Zofran Inj) 4 mg STK-MED ONCE .ROUTE 05/01/17 06:32 05/01/17 09:42 DC Lorazepam 0.5 mg 0.5 mg Q6H PRN IV AGITATION/ANXIETY 05/01/17 10:30 05/02/17 20:54 Piperacillin Sod/ Tazobactam Sod 100 ml @ 25 mls/hr TID@06,14,22 IVPB 05/01/17 14:00 05/02/17 14:42 Azithromycin/ Sodium Chloride (Zithromax/NS) 250 ml @ 250 mls/hr Q24H IVPB 05/01/17 12:00 05/02/17 11:36 Polysaccharide Iron Complex (Niferex-150) 1 cap TID PO 05/01/17 13:00 05/02/17 10:06 DC 05/02/17 09:07 Labetalol HCl (Labetalol) 5 mg Q6H PRN IV ELEVATED BLOOD PRESSURE 05/01/17 12:00 Acetaminophen (Tylenol Tab) 650 mg Q6H PRN PO PAIN AND OR ELEVATED TEMP 05/01/17 12:00 05/02/17 20:48 Ondansetron HCl (Zofran Inj) 4 mg Q6H PRN IV NAUSEA AND/OR VOMITING 05/01/17 12:00 05/01/17 13:49 Furosemide 20 mg 20 mg ONCE ONCE IV 05/01/17 13:30 05/01/17 13:31 DC 05/01/17 13:48 Magnesium Sulfate/ Dextrose (Magnesium Sulfate 1 Gm/D5W) 100 ml @ 100 mls/hr ONCE ONCE IVPB 05/01/17 13:30 05/01/17 14:29 DC 05/01/17 13:49 Furosemide (Lasix) 20 mg ONCE ONCE IV 05/01/17 13:30 05/01/17 13:31 DC Furosemide (Lasix) 20 mg DAILY@06 IV 05/02/17 06:00 05/02/17 12:13 DC 05/02/17 06:15 Prenat Multivit/ [place]/Iron/Folic Ac ( S) 1 tab DAILY PO 05/02/17 10:00 05/02/17 11:34 Polysaccharide Iron Complex (Niferex-150) 1 cap DAILY PO 05/03/17 09:00 Furosemide (Lasix) 40 mg BID DIURETICS IV 05/02/17 18:00 05/02/17 18:35 Lorazepam (Ativan) 2 mg STK-MED ONCE .ROUTE 04/30/17 18:13 05/02/17 20:04 DC Acetaminophen (Tylenol Tab) 325 mg STK-MED ONCE .ROUTE 04/30/17 14:46 05/02/17 20:13 DC Acetaminophen (Tylenol Tab) 325 mg STK-MED ONCE .ROUTE 04/30/17 20:20 05/02/17 20:17 DC was notified regarding the patient's change of mind . TAMMY MEZA MD May 02, 2017 21:14
[2017-05-03] VITALS (23 sets, daily range): BP systolic 99–118; BP diastolic 58–88; PULSE 75–127; RESP 20–36
[2017-05-03] MEDS: LORAZEPAM 2 MG INJ IV PRN ×3 (04:08→17:44)
[2017-05-03] MEDS: FUROSEMIDE 40 MG INJ IV SCH ×2 (04:50→17:44)
[2017-05-03] MEDS: PIPER-TAZO 3.375 GM IV (PMX) 100 ML IVPB SCH ×3 (04:51→22:18)
[2017-05-03 06:29] LABS: ADD SCAN DIFF NO
[2017-05-03 06:37] LABS: BASOPHILS % 0.3 % (0.0-2.0); EOSINOPHILS # 0.3 10^3/ul (0.0-0.5); EOSINOPHILS % 2.7 % (0.0-7.0); HEMOGLOBIN 8.1 g/dl (12.0-16.0); LYMPHOCYTES # 1.7 10^3/ul (0.8-2.9); LYMPHOCYTES % 15.3 % (15.0-51.0); MEAN CORPUSCULAR VOLUME 86.5 fl (82.0-101.0); MEAN PLATELET VOLUME 10.5 fl (7.4-10.4); MONOCYTE # 0.6 10^3/ul (0.3-0.9); MONOCYTES % 5.2 % (0.0-11.0); NEUTROPHIL # 8.5 10^3/ul (1.6-7.5); NEUTROPHILS % 75.7 % (39.0-77.0); NUCLEATED RED BLOOD CELLS # 0.1 10^3/ul (0.0-0.0); NUCLEATED RED BLOOD CELLS% 1.2 /100WBC (0.0-0.0); PLATELET COUNT 332 10^3/UL (140-415); RED BLOOD COUNT 3.12 10^6/ul (4.20-5.40); RED CELL DISTRIBUTION WIDTH 17.5 % (11.5-14.5); WHITE BLOOD COUNT 11.2 10^3/ul (4.8-10.8)
[2017-05-03 06:56] LABS: MAGNESIUM 1.6 mg/dl (1.7-2.5); PHOSPHORUS 3.6 mg/dl (2.5-4.9)
[2017-05-03 07:07] LABS: ALBUMIN 2.7 g/dl (3.3-4.9); CALCIUM 8.3 mg/dl (8.4-10.2); CREATININE 0.87 mg/dl (0.44-1.00); POTASSIUM 3.6 mmol/L (3.5-5.1); TOTAL PROTEIN 5.4 g/dl (6.1-8.1)
[2017-05-03] MEDS: MULTIVIT/MIN/FOLATE/IRON/PREN TAB PO SCH (08:41)
[2017-05-03] MEDS: POLYSACCHARIDE IRON COMPLEX CAP PO SCH (08:41)
--- NOTE | 2017-05-03 09:22 | CONS ---
Date/Time of Note Date/Time of Note DATE: 05/03/17 TIME: 09:20 Assessment/Plan Assessment/Plan Additional Assessment/Plan Assessment recommendations; 1. Patient admitted with what appeared to be bilateral pneumonia however the clinical findings are compatible with underlying severe cardiomyopathy with pulmonary edema. 2. Superimposed pneumonia also is a possibility. 3. History of hypertension. 4. Current . Continue current treatment. Patient has responded well to increasing Lasix dosing. We will continue at least for another 24 hours. Chest x-ray from today is pending. Consultation Date/Type/Reason Admit Date/Time Apr 29, 2017 at 07:23 Initial Consult Date 04/29/17 Type of Consultation: Pulmonary/critical care 24 HR Interval Summary Free Text/Dictation Patient condition is improved significantly. With decreased shortness of breath. Denies any chest pain, wheezing, cough or sputum production.. Patient has been able to lay down flat in bed without dyspnea. General exam; young woman, awake alert currently in no distress. Exam/Review of Systems Vital Signs Vitals Vital Signs Date Time Temp Pulse Resp B/P Pulse Ox O2 Delivery O2 Flow Rate FiO2 05/03/17 08:00 Nasal Cannula 3.0 05/03/17 08:00 97.6 104 33 111/75 99 05/03/17 05:26 30 Intake and Output 05/02/17 05/02/17 05/03/17 15:00 23:00 07:00 Intake Total 1040 ml 1100 ml 1120 ml Output Total 800 ml 1900 ml Balance 1040 ml 300 ml -780 ml Exam HEENT examined; supple neck, positive JVD. No lymphadenopathy. Midline trachea. No thyromegaly. Pharynx is clear. Patient has fair dentition. Pupils are midsize and reactive to light. Chest examined; clear to auscultation. S1-S2 audible, no murmurs. Regular rhythm. Tachycardic. Abdomen examination; soft, bowel sounds audible. Patient is gravid. Extremity exam; no peripheral edema. [employer] examination; no focal deficit. Results Result Diagram: 05/03/17 0538 05/03/17 0538 Results 24 hrs Laboratory Tests Test 05/03/17 05:31 05/03/17 05:38 Phosphorus Level 3.6 Magnesium Level 1.6 L White Blood Count 11.2 H Red Blood Count 3.12 L Hemoglobin 8.1 L Hematocrit 27.0 L Mean Corpuscular Volume 86.5 Mean Corpuscular Hemoglobin 26.0 L Mean Corpuscular Hemoglobin Concent 30.0 L Red Cell Distribution Width 17.5 H Platelet Count 332 Mean Platelet Volume 10.5 H Neutrophils % 75.7 Lymphocytes % 15.3 Monocytes % 5.2 Eosinophils % 2.7 Basophils % 0.3 Nucleated Red Blood Cells % 1.2 H Neutrophils # 8.5 H Lymphocytes # 1.7 Monocytes # 0.6 Eosinophils # 0.3 Basophils # 0.0 Nucleated Red Blood Cells # 0.1 H Sodium Level 137 Potassium Level 3.6 Chloride Level 105 Carbon Dioxide Level 24 Anion Gap 12 Blood Urea Nitrogen 12 Creatinine 0.87 Glucose Level 110 Calcium Level 8.3 L Total Bilirubin 0.0 L Direct Bilirubin 0.00 Indirect Bilirubin 0.0 Aspartate Amino Transf (AST/SGOT) 44 Alanine Aminotransferase (ALT/SGPT) 37 Alkaline Phosphatase 157 H Total Protein 5.4 L Albumin 2.7 L Globulin 2.70 Albumin/Globulin Ratio 1.00 Medications Medications Current Medications Lorazepam 0.5 mg 0.5 mg Q6H PRN IV AGITATION/ANXIETY Last administered on 04:08; Admin Dose 0.5 MG; Start 05/01/17 at 10:30 Piperacillin Sod/ Tazobactam Sod 100 ml @ 25 mls/hr TID@06,14,22 IVPB Last administered on 05/03/17 04:51; Admin Dose 25 MLS/HR; Start 05/01/17 at 14:00 Azithromycin/ Sodium Chloride (Zithromax/NS) 250 ml @ 250 mls/hr Q24H IVPB Last administered on 05/02/17 11:36; Admin Dose 250 MLS/HR; Start 05/01/17 at 12:00 Labetalol HCl (Labetalol) 5 mg Q6H PRN IV ELEVATED BLOOD PRESSURE; Start at 12:00 Acetaminophen (Tylenol Tab) 650 mg Q6H PRN PO PAIN AND OR ELEVATED TEMP Last administered on 05/02/17 20:48; Admin Dose 650 MG; Start 05/01/17 at 12:00 Ondansetron HCl (Zofran Inj) 4 mg Q6H PRN IV NAUSEA AND/OR VOMITING Last administered on 05/01/17 13:49; Admin Dose 4 MG; Start 05/01/17 at 12:00 Prenat Multivit/ [place]/Iron/Folic Ac ( S) 1 tab DAILY PO Last administered on 05/03/17 08:41; Admin Dose 1 TAB; Start 05/02/17 at 10:00 Polysaccharide Iron Complex (Niferex-150) 1 cap DAILY PO Last administered on 08:41; Admin Dose 1 CAP; Start 05/03/17 at 09:00 VICTORINO LOYOLA May 03, 2017 09:22
--- NOTE | 2017-05-03 10:22 | PN ---
Date/Time of Note Date/Time of Note DATE: 05/03/17 TIME: 10:02 Assessment/Plan VTE Prophylaxis VTE Prophylaxis Intervention: SCD's Lines/Catheters IV Catheter Type (from Nrs): Peripheral IV Urinary Cath still in place: No Assessment/Plan Assessment/Plan 27-year-old female: 1. Acute Respiratory Failure distress likely secondary to congestive heart failure and pulmonary edema, ? multifocal PNA. Continue IV abx On 2 to 3 L NC currently. Lasix on hold 2. Hypertension, which is secondary to combination of anxiety and respiratory distress. Labetalol prn. 3. 33 weeks viable . Yarn Dyer/laborist content strategy lead has been consulted. Patient is to have a heart monitor placed so that she can be followed while she is in the ICU. All medications have to be double checked for safety. 4. 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 5. Anemia with Fe deficiency: agree with Iron supplement and also added vitamin. Hb better at 8.1 today. 6. Anxiety Disorder , per patient report on Ativan 5. Methamphetamine use. food and nutrition services assistant following, CPS contacted. Continue Ativan prn anxiety Prophylaxis: Sequential compression devices to lower extremity for deep vein thrombosis prophylaxis. Pepcid gastrointestinal prophylaxis. DISPOSITION: Transfer to Tele if OK with Pulmo and Cardio. Laborist/ bag checker following. Subjective 24 Hr Interval Summary Free Text/Dictation Patient sleeping most of the time No complaints this AM On 2 to 3L NC currently On IV abx and diuresis on hold Exam/Review of Systems Vital Signs Vitals Vital Signs Date Time Temp Pulse Resp B/P Pulse Ox O2 Delivery O2 Flow Rate FiO2 05/03/17 08:00 Nasal Cannula 3.0 05/03/17 08:00 97.6 104 33 111/75 99 05/03/17 05:26 30 Intake and Output 05/02/17 05/02/17 05/03/17 15:00 23:00 07:00 Intake Total 1040 ml 1100 ml 1120 ml Output Total 800 ml 1900 ml Balance 1040 ml 300 ml -780 ml Exam Constitutional: other (sleeping but easily arousable ) Respiratory: diminished breath sounds (bases improving overall aeration ), normal air movement Cardiovascular: regular rate and rhythm (slightly tachy ) Gastrointestinal: non-tender, other (gravid ), soft Musculoskeletal: nl extremities to inspection Extremities: normal pulses, other (no edema, clubbing or cyanosis ) Neurological: BASKET BRAIDER II-XII intact, lethargic (sleeping ), nl mental status Results Result Diagram: 05/03/17 0538 05/03/17 0538 Results 24 hrs Laboratory Tests Test 05/03/17 05:31 05/03/17 05:38 Phosphorus Level 3.6 Magnesium Level 1.6 L White Blood Count 11.2 H Red Blood Count 3.12 L Hemoglobin 8.1 L Hematocrit 27.0 L Mean Corpuscular Volume 86.5 Mean Corpuscular Hemoglobin 26.0 L Mean Corpuscular Hemoglobin Concent 30.0 L Red Cell Distribution Width 17.5 H Platelet Count 332 Mean Platelet Volume 10.5 H Neutrophils % 75.7 Lymphocytes % 15.3 Monocytes % 5.2 Eosinophils % 2.7 Basophils % 0.3 Nucleated Red Blood Cells % 1.2 H Neutrophils # 8.5 H Lymphocytes # 1.7 Monocytes # 0.6 Eosinophils # 0.3 Basophils # 0.0 Nucleated Red Blood Cells # 0.1 H Sodium Level 137 Potassium Level 3.6 Chloride Level 105 Carbon Dioxide Level 24 Anion Gap 12 Blood Urea Nitrogen 12 Creatinine 0.87 Glucose Level 110 Calcium Level 8.3 L Total Bilirubin 0.0 L Direct Bilirubin 0.00 Indirect Bilirubin 0.0 Aspartate Amino Transf (AST/SGOT) 44 Alanine Aminotransferase (ALT/SGPT) 37 Alkaline Phosphatase 157 H Total Protein 5.4 L Albumin 2.7 L Globulin 2.70 Albumin/Globulin Ratio 1.00 Medications Medications Current Medications Lorazepam 0.5 mg 0.5 mg Q6H PRN IV AGITATION/ANXIETY Last administered on 04:08; Admin Dose 0.5 MG; Start 05/01/17 at 10:30 Piperacillin Sod/ Tazobactam Sod 100 ml @ 25 mls/hr TID@06,14,22 IVPB Last administered on 05/03/17 04:51; Admin Dose 25 MLS/HR; Start 05/01/17 at 14:00 Azithromycin/ Sodium Chloride (Zithromax/NS) 250 ml @ 250 mls/hr Q24H IVPB Last administered on 05/02/17 11:36; Admin Dose 250 MLS/HR; Start 05/01/17 at 12:00 Labetalol HCl (Labetalol) 5 mg Q6H PRN IV ELEVATED BLOOD PRESSURE; Start at 12:00 Acetaminophen (Tylenol Tab) 650 mg Q6H PRN PO PAIN AND OR ELEVATED TEMP Last administered on 05/02/17 20:48; Admin Dose 650 MG; Start 05/01/17 at 12:00 Ondansetron HCl (Zofran Inj) 4 mg Q6H PRN IV NAUSEA AND/OR VOMITING Last administered on 05/01/17 13:49; Admin Dose 4 MG; Start 05/01/17 at 12:00 Prenat Multivit/ [place]/Iron/Folic Ac ( S) 1 tab DAILY PO Last administered on 05/03/17 08:41; Admin Dose 1 TAB; Start 05/02/17 at 10:00 Polysaccharide Iron Complex (Niferex-150) 1 cap DAILY PO Last administered on 08:41; Admin Dose 1 CAP; Start 05/03/17 at 09:00 RUPAL RICK May 03, 2017 10:12
--- NOTE | 2017-05-03 10:31 | RADRPT ---
PROCEDURE: XR Chest. CLINICAL INDICATION: CHF TECHNIQUE: A single AP view of the chest was obtained. COMPARISON: Chest x-ray dated 05/02/2017 FINDINGS: There are bilateral alveolar opacities. No pleural effusion or pneumothorax is seen. The cardiomed iastinal silhouette is moderately enlarged. The osseous structures are unremarkable. IMPRESSION: 1. Bilateral alveolar opacities may reflect pulmonary edema or multifocal pneumonia. Overall, no s ignificant interval change. 2. Moderate cardiomegaly. RPTAT: HH .Poonam Alvarez MD, MD Date Time Electronically viewed and signed by .Poonam Alvarez MD, on 05/03/2017 10:30 .G/
[2017-05-03] MEDS: AZITHROMYCIN 500 MG in SOD CHLORIDE 0.9% 250 ML IVPB SCH (12:59)
[2017-05-03] MEDS: ACETAMINOPHEN 325 MG TAB PO PRN (14:06)
[2017-05-03] MEDS ORDERED: POTASSIUM CHLORIDE (SR) 20 MEQ TAB PO STA (14:32)
--- NOTE | 2017-05-03 14:33 | QN ---
Documentation Comment 33+wks GA in ICU with pneumonia ,ARDS and CHF Vs tachycardia 126 Gen Patient is pale and cachectic and restless Abd soft NT ND Genitalia Deffered Case D/w ,Perinatalogist: Patient needs Continuous monitoring ANNA daily Cardiology for the plan of care if she needs an emergency c/s case D/w charged Nurse,NAHUM Marquez M.D. May 03, 2017 14:33
[2017-05-03] MEDS ORDERED: MAGNESIUM SULFATE 3 GM in SOD CHLORIDE 0.9% 100 ML IVPB ONE (15:00)
--- NOTE | 2017-05-03 15:20 | CONS ---
Date/Time of Note Date/Time of Note DATE: 05/03/17 TIME: 15:19 Assessment/Plan Assessment/Plan Additional Assessment/Plan Respiratory failure Acute decompensated systolic congestive heart failure Severe cardiomyopathy Methamphetamine use Possible pneumonia -Continue diuretics as blood pressure and renal function permits, maintain potassium above 4.0 magnesium above 2.0. No VON inhibitor at the current time given patient . Blood pressure remains stable. Consultation Date/Type/Reason Admit Date/Time Apr 29, 2017 at 07:23 Initial Consult Date 04/29/17 Type of Consultation: cv 24 HR Interval Summary Free Text/Dictation Patient seen and examined. No new cardiac issues as per nursing staff Exam/Review of Systems Vital Signs Vitals Vital Signs Date Time Temp Pulse Resp B/P Pulse Ox O2 Delivery O2 Flow Rate FiO2 05/03/17 12:00 108 05/03/17 11:00 26 109/67 96 05/03/17 09:15 4.0 05/03/17 08:00 Nasal Cannula 05/03/17 08:00 97.6 05/03/17 07:05 30 Intake and Output 05/02/17 05/02/17 05/03/17 15:00 23:00 07:00 Intake Total 1040 ml 1100 ml 1120 ml Output Total 800 ml 1900 ml Balance 1040 ml 300 ml -780 ml Exam Sleeping but arousable, no apparent distress Head: normocephalic Respiratory: other (Coarse breath sounds bilaterally, no wheezing) Cardiovascular: other (S1-S2 heard), regular rate and rhythm Gastrointestinal: bowel sounds, non-tender, soft Extremities: edema Results Result Diagram: 05/03/17 0538 05/03/17 0538 Results 24 hrs Laboratory Tests Test 05/03/17 05:31 05/03/17 05:38 Phosphorus Level 3.6 Magnesium Level 1.6 L White Blood Count 11.2 H Red Blood Count 3.12 L Hemoglobin 8.1 L Hematocrit 27.0 L Mean Corpuscular Volume 86.5 Mean Corpuscular Hemoglobin 26.0 L Mean Corpuscular Hemoglobin Concent 30.0 L Red Cell Distribution Width 17.5 H Platelet Count 332 Mean Platelet Volume 10.5 H Neutrophils % 75.7 Lymphocytes % 15.3 Monocytes % 5.2 Eosinophils % 2.7 Basophils % 0.3 Nucleated Red Blood Cells % 1.2 H Neutrophils # 8.5 H Lymphocytes # 1.7 Monocytes # 0.6 Eosinophils # 0.3 Basophils # 0.0 Nucleated Red Blood Cells # 0.1 H Sodium Level 137 Potassium Level 3.6 Chloride Level 105 Carbon Dioxide Level 24 Anion Gap 12 Blood Urea Nitrogen 12 Creatinine 0.87 Glucose Level 110 Calcium Level 8.3 L Total Bilirubin 0.0 L Direct Bilirubin 0.00 Indirect Bilirubin 0.0 Aspartate Amino Transf (AST/SGOT) 44 Alanine Aminotransferase (ALT/SGPT) 37 Alkaline Phosphatase 157 H Total Protein 5.4 L Albumin 2.7 L Globulin 2.70 Albumin/Globulin Ratio 1.00 Medications Medications Current Medications Lorazepam 0.5 mg 0.5 mg Q6H PRN IV AGITATION/ANXIETY Last administered on 10:32; Admin Dose 0.5 MG; Start 05/01/17 at 10:30 Piperacillin Sod/ Tazobactam Sod 100 ml @ 25 mls/hr TID@06,14,22 IVPB Last administered on 05/03/17 14:13; Admin Dose 25 MLS/HR; Start 05/01/17 at 14:00 Azithromycin/ Sodium Chloride (Zithromax/NS) 250 ml @ 250 mls/hr Q24H IVPB Last administered on 05/03/17 12:59; Admin Dose 250 MLS/HR; Start 05/01/17 at 12:00 Labetalol HCl (Labetalol) 5 mg Q6H PRN IV ELEVATED BLOOD PRESSURE; Start at 12:00 Acetaminophen (Tylenol Tab) 650 mg Q6H PRN PO PAIN AND OR ELEVATED TEMP Last administered on 05/03/17 14:06; Admin Dose 650 MG; Start 05/01/17 at 12:00 Ondansetron HCl (Zofran Inj) 4 mg Q6H PRN IV NAUSEA AND/OR VOMITING Last administered on 05/01/17 13:49; Admin Dose 4 MG; Start 05/01/17 at 12:00 Prenat Multivit/ [place]/Iron/Folic Ac ( S) 1 tab DAILY PO Last administered on 05/03/17 08:41; Admin Dose 1 TAB; Start 05/02/17 at 10:00 Polysaccharide Iron Complex 1 cap 1 cap DAILY PO Last administered on 08:41; Admin Dose 1 CAP; Start 05/03/17 at 09:00 Magnesium Sulfate/ Sodium Chloride (Magnesium Sulfate/NS) 106 ml @ 35.333 mls/ hr ONCE ONCE IVPB ; Start 05/03/17 at 15:00; Stop 05/03/17 at 17:59 Bradford Vinson DO May 03, 2017 15:20
[2017-05-03 15:59] LABS: LYMPHOCYTE - CD4/CD8 RATIO 1.41 (0.86-5.00)
[2017-05-04] VITALS (24 sets, daily range): BP systolic 94–120; BP diastolic 54–87; PULSE 97–128; RESP 19–39
[2017-05-04] MEDS: LORAZEPAM 2 MG INJ IV PRN ×4 (00:05→18:10)
[2017-05-04] MEDS: FUROSEMIDE 40 MG INJ IV SCH ×2 (06:16→18:11)
[2017-05-04] MEDS: PIPER-TAZO 3.375 GM IV (PMX) 100 ML IVPB SCH ×3 (06:26→22:12)
[2017-05-04 06:39] LABS: ADD SCAN DIFF NO
[2017-05-04 06:48] LABS: BASOPHILS % 0.4 % (0.0-2.0); EOSINOPHILS # 0.3 10^3/ul (0.0-0.5); EOSINOPHILS % 3.4 % (0.0-7.0); HEMATOCRIT 27.8 % (37.0-47.0); HEMOGLOBIN 8.4 g/dl (12.0-16.0); LYMPHOCYTES # 1.9 10^3/ul (0.8-2.9); LYMPHOCYTES % 19.9 % (15.0-51.0); MEAN CORPUSCULAR HEMOGLOBIN 26.3 pg (29.0-33.0); MEAN CORPUSCULAR HGB CONC 30.2 g/dl (32.0-37.0); MEAN CORPUSCULAR VOLUME 86.9 fl (82.0-101.0); MEAN PLATELET VOLUME 10.6 fl (7.4-10.4); MONOCYTE # 0.7 10^3/ul (0.3-0.9); MONOCYTES % 7.2 % (0.0-11.0); NEUTROPHIL # 6.6 10^3/ul (1.6-7.5); NEUTROPHILS % 68.1 % (39.0-77.0); NUCLEATED RED BLOOD CELLS # 0.2 10^3/ul (0.0-0.0); PLATELET COUNT 352 10^3/UL (140-415); RED CELL DISTRIBUTION WIDTH 17.2 % (11.5-14.5); WHITE BLOOD COUNT 9.7 10^3/ul (4.8-10.8)
[2017-05-04 07:13] LABS: CALCIUM 8.4 mg/dl (8.4-10.2); CREATININE 0.77 mg/dl (0.44-1.00); MAGNESIUM 1.6 mg/dl (1.7-2.5); PHOSPHORUS 3.8 mg/dl (2.5-4.9); POTASSIUM 4.1 mmol/L (3.5-5.1)
[2017-05-04] MEDS: POLYSACCHARIDE IRON COMPLEX CAP PO SCH (09:09)
[2017-05-04] MEDS: MULTIVIT/MIN/FOLATE/IRON/PREN TAB PO SCH (09:09)
--- NOTE | 2017-05-04 10:08 | PN ---
Date/Time of Note Date/Time of Note DATE: 05/04/17 TIME: 09:51 Assessment/Plan VTE Prophylaxis VTE Prophylaxis Intervention: SCD's Lines/Catheters IV Catheter Type (from Nrs): Peripheral IV Urinary Cath still in place: No Assessment/Plan Assessment/Plan 27-year-old female: 1. Acute Respiratory Failure distress likely secondary to congestive heart failure and pulmonary edema, ? multifocal PNA. Much better this AM and on RA this AM with sats 98% Continue IV abx Back on Lasix 40 mg IV bid, may decrease to daily dose pending CXR today. 2. Hypertension, which is secondary to combination of anxiety and respiratory distress. Currently normotensive. Labetalol prn. 3. 33 weeks viable . Rn Or Lpn/laborist following closely, baby on continuous monitoring now. Patient now has heart monitor placed so that she can be followed while she is in the ICU All medications have to be double checked for safety. 4. 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 Improving 5. Anemia with Fe deficiency: agree with Iron supplement and also on vitamin. Hb better at 8.4 today. 6. Anxiety Disorder, per patient report on Ativan 5. Methamphetamine use. client services director following, CPS contacted. Continue Ativan prn anxiety will decrease to q8 prn Prophylaxis: Sequential compression devices to lower extremity for deep vein thrombosis prophylaxis. Pepcid gastrointestinal prophylaxis. DISPOSITION: Transfer to [facility] when OK with Pulmo and Cardio. Laborist/ corporate auditor following, patient may need early delivery. Subjective 24 Hr Interval Summary Free Text/Dictation Patient much more awake today and on RA and comfortable Agrees to cut down Ativan to q8 prn WBC down and Hb slowly coming up Laborist following closely as patient may need early delivery Exam/Review of Systems Vital Signs Vitals Vital Signs Date Time Temp Pulse Resp B/P Pulse Ox O2 Delivery O2 Flow Rate FiO2 05/04/17 08:00 116 27 106/78 100 Nasal Cannula 3.0 05/04/17 07:00 98.2 05/03/17 07:05 30 Intake and Output 05/03/17 05/03/17 05/04/17 15:00 23:00 07:00 Intake Total 920 ml 790 ml 350 ml Output Total 0 ml 1950 ml 600 ml Balance 920 ml -1160 ml -250 ml Exam Constitutional: alert, oriented, well developed Respiratory: diminished breath sounds (bases ), normal air movement, other (on RA ) Cardiovascular: nl pulses, regular rate and rhythm (slightly tachy ) Gastrointestinal: non-tender, other (gravid uterus ), soft Musculoskeletal: nl extremities to inspection Extremities: normal pulses, other (no edema, clubbing or cyanosis ) Neurological: GUEST SERVICE MANAGER II-XII intact, nl mental status, nl speech, other (improved geenralised weakkness ) Results Result Diagram: 05/04/1748 05/04/1748 Results 24 hrs Laboratory Tests Test 05/04/17 05:48 White Blood Count 9.7 Red Blood Count 3.20 L Hemoglobin 8.4 L Hematocrit 27.8 L Mean Corpuscular Volume 86.9 Mean Corpuscular Hemoglobin 26.3 L Mean Corpuscular Hemoglobin Concent 30.2 L Red Cell Distribution Width 17.2 H Platelet Count 352 Mean Platelet Volume 10.6 H Neutrophils % 68.1 Lymphocytes % 19.9 Monocytes % 7.2 Eosinophils % 3.4 Basophils % 0.4 Nucleated Red Blood Cells % 2.0 H Neutrophils # 6.6 Lymphocytes # 1.9 Monocytes # 0.7 Eosinophils # 0.3 Basophils # 0.0 Nucleated Red Blood Cells # 0.2 H Sodium Level 137 Potassium Level 4.1 Chloride Level 105 Carbon Dioxide Level 25 Anion Gap 11 Blood Urea Nitrogen 11 Creatinine 0.77 Glucose Level 74 Calcium Level 8.4 Phosphorus Level 3.8 Magnesium Level 1.6 L Medications Medications Current Medications Lorazepam 0.5 mg 0.5 mg Q6H PRN IV AGITATION/ANXIETY Last administered on 06:16; Admin Dose 0.5 MG; Start 05/01/17 at 10:30 Piperacillin Sod/ Tazobactam Sod 100 ml @ 25 mls/hr TID@,,22 IVPB Last administered on 05/04/17 06:26; Admin Dose 25 MLS/HR; Start 05/01/17 at 14:00 Azithromycin/ Sodium Chloride (Zithromax/NS) 250 ml @ 250 mls/hr Q24H IVPB Last administered on 05/03/17 12:59; Admin Dose 250 MLS/HR; Start 05/01/17 at 12:00 Labetalol HCl (Labetalol) 5 mg Q6H PRN IV ELEVATED BLOOD PRESSURE; Start at 12:00 Acetaminophen (Tylenol Tab) 650 mg Q6H PRN PO PAIN AND OR ELEVATED TEMP Last administered on 05/03/17 14:06; Admin Dose 650 MG; Start 05/01/17 at 12:00 Ondansetron HCl (Zofran Inj) 4 mg Q6H PRN IV NAUSEA AND/OR VOMITING Last administered on 05/01/17 13:49; Admin Dose 4 MG; Start 05/01/17 at 12:00 Prenat Multivit/ Editing Clerk/Iron/Folic Ac ( S) 1 tab DAILY PO Last administered on 05/04/17 09:09; Admin Dose 1 TAB; Start 05/02/17 at 10:00 Polysaccharide Iron Complex (Niferex-150) 1 cap DAILY PO Last administered on 09:09; Admin Dose 1 CAP; Start 05/03/17 at 09:00 RUPAL RICK May 04, 2017 10:03
[2017-05-04] MEDS ORDERED: MAGNESIUM SULFATE 2 GM/50 ML 50 ML IVPB ONE (10:30)
--- NOTE | 2017-05-04 11:30 | CONS ---
Date/Time of Note Date/Time of Note DATE: 05/04/17 TIME: 11:28 Assessment/Plan Assessment/Plan Additional Assessment/Plan Assessment recommendations; 1. Patient admitted with acute shortness of breath from a combination of bilateral pneumonia with severe cardiomyopathy and pulmonary edema which likely is the dominant etiology. 2. History of drug abuse. 3. Current . Continue current treatment. Obtain follow-up chest x-ray. I would recommend keeping the patient in ICU until there is significant radiological improvement. Consultation Date/Type/Reason Admit Date/Time Apr 29, 2017 at 07:23 Initial Consult Date 04/29/17 Type of Consultation: Pulmonary/critical 24 HR Interval Summary Free Text/Dictation Patient condition is significantly improved. She reports marked reduction in shortness of breath. Denies any coughing, chest pain, wheezing. Patient able to lay down flat in bed without dyspnea. General exam; young woman, awake alert currently in no distress. Exam/Review of Systems Vital Signs Vitals Vital Signs Date Time Temp Pulse Resp B/P Pulse Ox O2 Delivery O2 Flow Rate FiO2 05/04/17 11:00 110 24 95/66 95 Room Air 05/04/17 10:00 3.0 05/04/17 07:00 98.2 05/03/17 07:05 30 Intake and Output 05/03/17 05/03/17 05/04/17 15:00 23:00 07:00 Intake Total 920 ml 790 ml 350 ml Output Total 0 ml 1950 ml 600 ml Balance 920 ml -1160 ml -250 ml Exam HEENT exam; supple neck, positive JVD. No lymphadenopathy. Midline trachea. No thyromegaly. Pharynx is clear. Patient has fair dentition. Pupils are small bilaterally. Chest examination; diminished but clear vessel. S1-S2 audible, no murmurs. Regular rhythm. Abdomen examination; soft, no organomegaly. Patient is gravid. Bowel sounds audible. Extremity examination; no peripheral edema. Pulses 2+ bilaterally. OCCUPATIONAL HEALTH PROFESSIONAL examination; no focal deficit. Results Result Diagram: 05/04/17 0548 05/04/17 0548 Results 24 hrs Laboratory Tests Test 05/04/17 05:48 White Blood Count 9.7 Red Blood Count 3.20 L Hemoglobin 8.4 L Hematocrit 27.8 L Mean Corpuscular Volume 86.9 Mean Corpuscular Hemoglobin 26.3 L Mean Corpuscular Hemoglobin Concent 30.2 L Red Cell Distribution Width 17.2 H Platelet Count 352 Mean Platelet Volume 10.6 H Neutrophils % 68.1 Lymphocytes % 19.9 Monocytes % 7.2 Eosinophils % 3.4 Basophils % 0.4 Nucleated Red Blood Cells % 2.0 H Neutrophils # 6.6 Lymphocytes # 1.9 Monocytes # 0.7 Eosinophils # 0.3 Basophils # 0.0 Nucleated Red Blood Cells # 0.2 H Sodium Level 137 Potassium Level 4.1 Chloride Level 105 Carbon Dioxide Level 25 Anion Gap 11 Blood Urea Nitrogen 11 Creatinine 0.77 Glucose Level 74 Calcium Level 8.4 Phosphorus Level 3.8 Magnesium Level 1.6 L Medications Medications Current Medications Piperacillin Sod/ Tazobactam Sod 100 ml @ 25 mls/hr TID@ IVPB Last administered on 05/04/17 06:26; Admin Dose 25 MLS/HR; Start 05/01/17 at 14:00 Azithromycin/ Sodium Chloride (Zithromax/NS) 250 ml @ 250 mls/hr Q24H IVPB Last administered on 05/03/17 12:59; Admin Dose 250 MLS/HR; Start 05/01/17 at 12:00 Labetalol HCl (Labetalol) 5 mg Q6H PRN IV ELEVATED BLOOD PRESSURE; Start at 12:00 Acetaminophen (Tylenol Tab) 650 mg Q6H PRN PO PAIN AND OR ELEVATED TEMP Last administered on 05/03/17 14:06; Admin Dose 650 MG; Start 05/01/17 at 12:00 Ondansetron HCl (Zofran Inj) 4 mg Q6H PRN IV NAUSEA AND/OR VOMITING Last administered on 05/01/17 13:49; Admin Dose 4 MG; Start 05/01/17 at 12:00 Prenat Multivit/ [place]/Iron/Folic Ac ( S) 1 tab DAILY PO Last administered on 05/04/17 09:09; Admin Dose 1 TAB; Start 05/02/17 at 10:00 Polysaccharide Iron Complex (Niferex-150) 1 cap DAILY PO Last administered on 09:09; Admin Dose 1 CAP; Start 05/03/17 at 09:00 Lorazepam 0.5 mg 0.5 mg Q8 PRN IV AGITATION/ANXIETY; Start 05/04/17 at 14:00 Magnesium Sulfate (Magnesium Sulfate 2 Gm/50 ml) 50 ml @ 25 mls/hr ONCE ONCE IVPB Last administered on 05/04/17t 10:24; Admin Dose 25 MLS/HR; Start at 10:30; Stop 05/04/17 at 12:29 VICTORINO LOYOLA 21, 2017 11:30
--- NOTE | 2017-05-04 11:58 | CONS ---
Date/Time of Note Date/Time of Note DATE: 05/04/17 TIME: 11:56 Assessment/Plan Assessment/Plan Additional Assessment/Plan Respiratory failure Acute decompensated systolic congestive heart failure Severe cardiomyopathy with ejection fraction 25% Methamphetamine use Possible pneumonia -Respiratory status continues to improve, continue diuretics as blood pressure and renal function permits. If chest x-ray improved, would likely switch to p.o. diuretics in the next 1-2 days. Maintain potassium above 4.0 magnesium above 2.0. No VON inhibitor at the current time given patient . Consultation Date/Type/Reason Admit Date/Time Apr 29, 2017 at 07:23 Initial Consult Date 04/29/17 Type of Consultation: cv 24 HR Interval Summary Free Text/Dictation Patient seen and examined. Off oxygen supplementation with maintaining oxygen saturation. Exam/Review of Systems Vital Signs Vitals Vital Signs Date Time Temp Pulse Resp B/P Pulse Ox O2 Delivery O2 Flow Rate FiO2 05/04/17 11:00 110 24 95/66 95 Room Air 05/04/17 10:00 3.0 05/04/17 07:00 98.2 05/03/17 07:05 30 Intake and Output 05/03/17 05/03/17 05/04/17 14:59 22:59 06:59 Intake Total 1080 ml 790 ml 350 ml Output Total 400 ml 1950 ml 600 ml Balance 680 ml -1160 ml -250 ml Exam Sleeping but arousable, following commands, no apparent distress Head: normocephalic Neck: supple Respiratory: other (Coarse breath sounds bilaterally, no wheezing) Cardiovascular: other (S1-S2 heard), regular rate and rhythm Gastrointestinal: bowel sounds, non-tender, soft Extremities: edema (Trace) Results Result Diagram: 05/04/17 0548 05/04/17 0548 Results 24 hrs Laboratory Tests Test 05/04/17 05:48 White Blood Count 9.7 Red Blood Count 3.20 L Hemoglobin 8.4 L Hematocrit 27.8 L Mean Corpuscular Volume 86.9 Mean Corpuscular Hemoglobin 26.3 L Mean Corpuscular Hemoglobin Concent 30.2 L Red Cell Distribution Width 17.2 H Platelet Count 352 Mean Platelet Volume 10.6 H Neutrophils % 68.1 Lymphocytes % 19.9 Monocytes % 7.2 Eosinophils % 3.4 Basophils % 0.4 Nucleated Red Blood Cells % 2.0 H Neutrophils # 6.6 Lymphocytes # 1.9 Monocytes # 0.7 Eosinophils # 0.3 Basophils # 0.0 Nucleated Red Blood Cells # 0.2 H Sodium Level 137 Potassium Level 4.1 Chloride Level 105 Carbon Dioxide Level 25 Anion Gap 11 Blood Urea Nitrogen 11 Creatinine 0.77 Glucose Level 74 Calcium Level 8.4 Phosphorus Level 3.8 Magnesium Level 1.6 L Medications Medications Current Medications Piperacillin Sod/ Tazobactam Sod 100 ml @ 25 mls/hr TID@,, IVPB Last administered on 05/04/17 06:26; Admin Dose 25 MLS/HR; Start 05/01/17 at 14:00 Azithromycin/ Sodium Chloride (Zithromax/NS) 250 ml @ 250 mls/hr Q24H IVPB Last administered on 05/03/17 12:59; Admin Dose 250 MLS/HR; Start 05/01/17 at 12:00 Labetalol HCl (Labetalol) 5 mg Q6H PRN IV ELEVATED BLOOD PRESSURE; Start at 12:00 Acetaminophen (Tylenol Tab) 650 mg Q6H PRN PO PAIN AND OR ELEVATED TEMP Last administered on 05/03/17 14:06; Admin Dose 650 MG; Start 05/01/17 at 12:00 Ondansetron HCl (Zofran Inj) 4 mg Q6H PRN IV NAUSEA AND/OR VOMITING Last administered on 05/01/17 13:49; Admin Dose 4 MG; Start 05/01/17 at 12:00 Prenat Multivit/ [place]/Iron/Folic Ac ( S) 1 tab DAILY PO Last administered on 05/04/17 09:09; Admin Dose 1 TAB; Start 05/02/17 at 10:00 Polysaccharide Iron Complex 1 cap 1 cap DAILY PO Last administered on 09:09; Admin Dose 1 CAP; Start 05/03/17 at 09:00 Magnesium Sulfate (Magnesium Sulfate 2 Gm/50 ml) 50 ml @ 25 mls/hr ONCE ONCE IVPB Last administered on 05/04/17 10:24; Admin Dose 25 MLS/HR; Start at 10:30; Stop 05/04/17 at 12:29 Lorazepam (Ativan) 0.5 mg Q6H PRN IV AGITATION/ANXIETY; Start 05/04/17 at 12:00 Bradford Vinson DO May 04, 2017 11:58
[2017-05-04] MEDS: AZITHROMYCIN 500 MG in SOD CHLORIDE 0.9% 250 ML IVPB SCH (12:13)
[2017-05-04] MEDS ORDERED: LORAZEPAM 2 MG INJ IV PRN (14:00)
--- NOTE | 2017-05-04 20:05 | RADRPT ---
PROCEDURE: US OB biophysical profile. CLINICAL INDICATION: LOW ANNA ON 04/29 (ANNA 7.4CM), NO CARE TECHNIQUE: Multiple sonographic images of the pelvis were obtained. The images were reviewed on a PACS workstation. COMPARISON: OB sonogram 04/29/2017 for biophysical profile. FINDINGS: Presentation: Not demonstrated. Cardiac activity is present with 161 beats per minute. The placenta is anterior grade III. MVP: Not applicable. Amniotic fluid index: 10.9 cm Biophysical profile: movement 0/2. tone 0/2. breathing 2/2. ANNA 2/2 Total 02/19 IMPRESSION: 1. Biophysical profile: 02/19 2. Amniotic fluid index: 10.9 cm. RPTAT:AAJJ . Physician Sakina Date Time Electronically viewed and signed by Rich Hunter Physician on 05/04/2017 20:04 LUCITA/
--- NOTE | 2017-05-04 20:27 | RADRPT ---
PROCEDURE: XR Chest AP portable CLINICAL INDICATION: CHF TECHNIQUE: An AP portable radiograph of the chest was submitted. COMPARISON: 04/03/2008 FINDINGS: Support Hardware: None Cardiovascular: Since the previous study, the heart has increased in size and is now mildly enlarged while the pulmonary vasculature has become congested. Lung Palm: Interstitial infiltrates is seen extend from the perihilar regions bilaterally suspicio us for interstitial edema. No alveolar infiltrate is evident. Pleural Spaces: No pneumothorax or pleural effusion is identified. Osseous Structures: The osseous structures appear intact. Soft Tissues: The soft tissues appear unremarkable. IMPRESSION: Interval development of cardiomegaly with CHF and interstitial edema. Physician Zari Date Time Electronically viewed and signed by Physician Zari on 05/04/2017 20:27 /
--- NOTE | 2017-05-04 23:04 | RADRPT ---
PROCEDURE: ULTRASOUND BIOPHYSICAL PROFILE May 04, 2017 at 10:06 p.m. CLINICAL INDICATION: 27-year-old female with abnormal biophysical profile following Ativan. This i s a follow-up examination. TECHNIQUE: Multiple sonographic images were obtained in order to perform a biophysical profile The images were reviewed on a PACS workstation. COMPARISON: Ultrasound biophysical profile May 04, 2017 at 06:34 p.m. FINDINGS: There is a single viable intrauterine gestation. There is a vertex presentation. Cardiac activity i s present at 152 beats per minute. The placenta is anterior. The results of the biophysical profile are as follows: breathing movement = 2/2 Gross body movement = 2/2 tone = 2/2 Qualitative amniotic fluid volume = 2/2 Amniotic fluid index equals 14.7 cm. This yields a biophysical profile score of 8/8. IMPRESSION: Biophysical profile score is 8/8. .Ronnie Plata MD, MD Date Time Electronically viewed and signed by .Ronnie Plata MD, on 05/04/2017 23:04 .M/
--- NOTE | 2017-05-04 23:20 | QN ---
Documentation Comment Denies any SOB or chest pain.Denies any orthopena, Denies feeling any uterine contraction. Vaginal bleeding or decreased movement Being monitored in ICU still by continous monitoring PE: GA: A&O, NAD, pale, cachectic Abdomen: Gravid, non tender, FH consistent with GA NST: Cat 1, no contraction Extremities: no calf tenderness, no edema. negative Sony sign Lungs: CTA BL, No distress CV: Tachycardia Assessment IUP at 33 weeks and 6 days , based on the due date by us on this admission and EFW Admitted due to Pneumonia CHF, Long history of Meth usage. EF 25 %, on lasix Being followed by cardiology On abx. , Azithromycin and Zocyn, improved. now on RA, no distress NST: Cat 1 Plan Continue management per Medicine and cardiology team Cardiology to provide recommendation at the time of delivery ( mode of delivery and anesthesia) May need operative delivery . Appreciate cardiology recs Needs anesthesia consultation as well for pain control during labor or if CD indicated. Perinatology consultation JORGE ROSAS MD May 04, 2017 23:20
[2017-05-05] VITALS (23 sets, daily range): BP systolic 97–124; BP diastolic 58–100; PULSE 101–130; RESP 16–31
[2017-05-05] MEDS: LORAZEPAM 2 MG INJ IV PRN ×3 (00:26→21:51)
[2017-05-05] MEDS: PIPER-TAZO 3.375 GM IV (PMX) 100 ML IVPB SCH ×3 (05:35→21:55)
[2017-05-05] MEDS: FUROSEMIDE 40 MG INJ IV SCH (05:36)
[2017-05-05 06:40] LABS: ADD SCAN DIFF NO
[2017-05-05 06:43] LABS: BASOPHILS % 0.3 % (0.0-2.0); EOSINOPHILS # 0.3 10^3/ul (0.0-0.5); EOSINOPHILS % 2.5 % (0.0-7.0); HEMATOCRIT 27.7 % (37.0-47.0); HEMOGLOBIN 8.5 g/dl (12.0-16.0); LYMPHOCYTES # 1.8 10^3/ul (0.8-2.9); LYMPHOCYTES % 16.5 % (15.0-51.0); MEAN CORPUSCULAR HEMOGLOBIN 26.4 pg (29.0-33.0); MEAN CORPUSCULAR HGB CONC 30.7 g/dl (32.0-37.0); MEAN PLATELET VOLUME 10.5 fl (7.4-10.4); MONOCYTE # 0.7 10^3/ul (0.3-0.9); NEUTROPHIL # 8.1 10^3/ul (1.6-7.5); NEUTROPHILS % 73.7 % (39.0-77.0); NUCLEATED RED BLOOD CELLS # 0.1 10^3/ul (0.0-0.0); NUCLEATED RED BLOOD CELLS% 1.1 /100WBC (0.0-0.0); PLATELET COUNT 364 10^3/UL (140-415); RED BLOOD COUNT 3.22 10^6/ul (4.20-5.40); RED CELL DISTRIBUTION WIDTH 18.1 % (11.5-14.5); WHITE BLOOD COUNT 10.9 10^3/ul (4.8-10.8)
[2017-05-05 07:07] LABS: ALBUMIN 3.2 g/dl (3.3-4.9); ALBUMIN/GLOBULIN RATIO 1.14; BILIRUBIN,INDIRECT 0.1 mg/dl (0-1.1); BILIRUBIN,TOTAL 0.1 mg/dl (0.2-1.3); CALCIUM 8.3 mg/dl (8.4-10.2); CREATININE 0.74 mg/dl (0.44-1.00); POTASSIUM 3.6 mmol/L (3.5-5.1)
[2017-05-05 07:15] LABS: MAGNESIUM 1.8 mg/dl (1.7-2.5); PHOSPHORUS 3.9 mg/dl (2.5-4.9)
--- NOTE | 2017-05-05 07:18 | RADRPT ---
PROCEDURE: OB ultrasound for biophysical profile CLINICAL INDICATION: ANNA. well being. TECHNIQUE: Multiple sonographic images of the pelvis were obtained. Transabdominal view of the gr avid uterus are available for review. The images were reviewed on a PACS workstation. COMPARISON: OB ultrasound 05/04/2017 FINDINGS: breathing movement = 2/2 tone = 2/2 motion = 2/2 ANNA = 2/2 ANNA = 12.9 cm Single live intrauterine with cardiac activity. heart rate equals 152 beats p er minute. Presentation is cephalic. The placenta is anterior. IMPRESSION: 1. Single viable intrauterine gestation. 2. Biophysical profile = 8/8. 3. ANNA = 12.9 cm. RPTAT: HJBF .Jose Demarco MD, MD Date Time Electronically viewed and signed by .Jose Demarco MD, MD on 05/05/2017 07:18 .B/
[2017-05-05] MEDS: BETAMET NA PHOS/AC(6 MG/ML) 5ML INJ IM SCH ×2 (08:16→21:49)
[2017-05-05] MEDS: POLYSACCHARIDE IRON COMPLEX CAP PO SCH (09:30)
[2017-05-05] MEDS: MULTIVIT/MIN/FOLATE/IRON/PREN TAB PO SCH (09:30)
--- NOTE | 2017-05-05 11:55 | CONS ---
Date/Time of Note Date/Time of Note DATE: 05/05/17 TIME: 11:52 Assessment/Plan Assessment/Plan Additional Assessment/Plan Chest x-ray was reviewed from this morning which is markedly improved. There is marked reduction in pulmonary edema as well as cardiomegaly. Assessment recommendations; 1. Patient admitted with shortness of breath due to severe pulmonary edema due to underlying severe cardiomyopathy. Clinically and radiologically markedly improved. 2. Possibly superimposed pneumonia. 3. History of drug abuse. 4. Current . Decrease Lasix to 40 mg IV daily. Patient can be transferred to the obstetrics unit. Continue antibiotics for another 24 hours. Consultation Date/Type/Reason Admit Date/Time Apr 29, 2017 at 07:23 Initial Consult Date 04/29/17 Type of Consultation: Pulmonary/critical care 24 HR Interval Summary Free Text/Dictation Patient condition is markedly improved. Patient is denying any shortness of breath, able to lay down flat in bed. General exam; young woman, awake alert currently in no distress. Exam/Review of Systems Vital Signs Vitals Vital Signs Date Time Temp Pulse Resp B/P Pulse Ox O2 Delivery O2 Flow Rate FiO2 05/05/17 08:00 97.5 111 23 99/77 99 Room Air 05/04/17 10:00 3.0 05/03/17 07:05 30 Intake and Output 05/04/17 05/04/17 05/05/17 14:59 22:59 06:59 Intake Total 1270 ml 700 ml 565 ml Output Total 1400 ml 1050 ml 1000 ml Balance -130 ml -350 ml -435 ml Exam HEENT examination; supple neck, no JVD. Patient has fair dentition. No neck masses. No thyromegaly. Chest examination; clear to ulceration. S1-S2 audible, no murmurs. Regular rhythm. No gallop. Abdomen examination; soft, patient is gravid. Bowel sounds audible. Extremity examination; no peripheral edema. Pulses 2+ bilaterally. CONSTRUCTION ESTIMATOR examination; no focal deficit. Results Result Diagram: 05/05/17 0549 05/05/17 0548 Results 24 hrs Laboratory Tests Test 05/05/17 05:48 05/05/17 05:49 05/05/17 05:58 Sodium Level 133 L Potassium Level 3.6 Chloride Level 101 Carbon Dioxide Level 25 Anion Gap 11 Blood Urea Nitrogen 10 Creatinine 0.74 Glucose Level 93 Calcium Level 8.3 L Total Bilirubin 0.1 L Direct Bilirubin 0.00 Indirect Bilirubin 0.1 Aspartate Amino Transf (AST/SGOT) 30 Alanine Aminotransferase (ALT/SGPT) 32 Alkaline Phosphatase 176 H Total Protein 6.0 L Albumin 3.2 L Globulin 2.80 Albumin/Globulin Ratio 1.14 White Blood Count 10.9 H Red Blood Count 3.22 L Hemoglobin 8.5 L Hematocrit 27.7 L Mean Corpuscular Volume 86.0 Mean Corpuscular Hemoglobin 26.4 L Mean Corpuscular Hemoglobin Concent 30.7 L Red Cell Distribution Width 18.1 H Platelet Count 364 Mean Platelet Volume 10.5 H Neutrophils % 73.7 Lymphocytes % 16.5 Monocytes % 6.0 Eosinophils % 2.5 Basophils % 0.3 Nucleated Red Blood Cells % 1.1 H Neutrophils # 8.1 H Lymphocytes # 1.8 Monocytes # 0.7 Eosinophils # 0.3 Basophils # 0.0 Nucleated Red Blood Cells # 0.1 H Phosphorus Level 3.9 Magnesium Level 1.8 Medications Medications Current Medications Piperacillin Sod/ Tazobactam Sod 100 ml @ 25 mls/hr TID@ IVPB Last administered on 05/05/17 05:35; Admin Dose 25 MLS/HR; Start 05/01/17 at 14:00 Azithromycin/ Sodium Chloride (Zithromax/NS) 250 ml @ 250 mls/hr Q24H IVPB Last administered on 05/04/17 12:13; Admin Dose 250 MLS/HR; Start 05/01/17 at 12:00 Labetalol HCl (Labetalol) 5 mg Q6H PRN IV ELEVATED BLOOD PRESSURE; Start at 12:00 Acetaminophen (Tylenol Tab) 650 mg Q6H PRN PO PAIN AND OR ELEVATED TEMP Last administered on 05/03/17 14:06; Admin Dose 650 MG; Start 05/01/17 at 12:00 Ondansetron HCl (Zofran Inj) 4 mg Q6H PRN IV NAUSEA AND/OR VOMITING Last administered on 05/01/17 13:49; Admin Dose 4 MG; Start 05/01/17 at 12:00 Prenat Multivit/ [place]/Iron/Folic Ac ( S) 1 tab DAILY PO Last administered on 05/05/17 09:30; Admin Dose 1 TAB; Start 05/02/17 at 10:00 Polysaccharide Iron Complex (Niferex-150) 1 cap DAILY PO Last administered on 09:30; Admin Dose 1 CAP; Start 05/03/17 at 09:00 Lorazepam (Ativan) 0.5 mg Q6H PRN IV AGITATION/ANXIETY Last administered on 07:36; Admin Dose 0.5 MG; Start 05/04/17 at 12:00 Betamethasone Acet/Betameth SodPhos (Celestone Soluspan) 12 mg Q12 IM Last administered on 05/05/17 08:16; Admin Dose 12 MG; Start 05/05/17 at 09:00; Stop 05/05/17 at 21:01 VICTORINO LOYOLA May 05, 2017 11:55
--- NOTE | 2017-05-05 13:09 | PN ---
Date/Time of Note Date/Time of Note DATE: 05/05/17 TIME: 12:50 Assessment/Plan VTE Prophylaxis VTE Prophylaxis Intervention: SCD's Lines/Catheters IV Catheter Type (from Nrs): Peripheral IV Urinary Cath still in place: No Assessment/Plan Assessment/Plan 27-year-old female: 1. Acute Respiratory Failure distress likely secondary to congestive heart failure and pulmonary edema, ? multifocal PNA. Much better this AM and on RA this AM with sats 98% x 2 days Continue IV abx Lasix down to 40 mg IV daily. 2. Hypertension, which is secondary to combination of anxiety and respiratory distress. Currently normotensive. Labetalol prn. 3. 33 weeks viable . Product Safety Lead/laborist following closely, baby on continuous monitoring now. Patient now has heart monitor placed so that she can be followed while she is in the ICU All medications have to be double checked for safety. 4. 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 Per OB request need to repeat echo to re-eval EF. Sinus Tachy likely multifactorial including hypoxemia, anemia, . Improving 5. Anemia with Fe deficiency: agree with Iron supplement and also on vitamin. Hb better at 8.5 today. 6. Anxiety Disorder, per patient report on Ativan 5. Methamphetamine use. student services counselor following, CPS contacted. Continue Ativan prn anxiety q6 prn Prophylaxis: Sequential compression devices to lower extremity for deep vein thrombosis prophylaxis. Pepcid gastrointestinal prophylaxis. DISPOSITION: Transfer to [facility] when OK with Pulmo and Cardio. Laborist/ vending enterprises supervisor following, and want repeat limited echo to re-eval EF, patient may need early delivery. Subjective 24 Hr Interval Summary Free Text/Dictation Patient stable and has been on RA x 2 days now Afebrile and stable respiratory status Appreciate Dr Britton's recommendations Exam/Review of Systems Vital Signs Vitals Vital Signs Date Time Temp Pulse Resp B/P Pulse Ox O2 Delivery O2 Flow Rate FiO2 05/05/17 12:00 110 05/05/17 08:00 97.5 23 99/77 99 Room Air 05/04/17 10:00 3.0 05/03/17 07:05 30 Intake and Output 05/04/17 05/04/17 05/05/17 15:00 23:00 07:00 Intake Total 1270 ml 725 ml 540 ml Output Total 1400 ml 1050 ml 1000 ml Balance -130 ml -325 ml -460 ml Exam Constitutional: alert, oriented, other (much more comfortable ), well developed Respiratory: clear to auscultation, diminished breath sounds Cardiovascular: regular rate and rhythm (sinus tachy ) Gastrointestinal: non-tender, other (gravid abdo ), soft Musculoskeletal: nl extremities to inspection, other (no edema, clubbing or cyanosis ) Extremities: normal pulses Neurological: TIN CUTTER II-XII intact, nl mental status, nl speech, nl strength Results Result Diagram: 05/05/17 0549 05/05/17 0548 Results 24 hrs Laboratory Tests Test 05/05/17 05:48 05/05/17 05:49 05/05/17 05:58 Sodium Level 133 L Potassium Level 3.6 Chloride Level 101 Carbon Dioxide Level 25 Anion Gap 11 Blood Urea Nitrogen 10 Creatinine 0.74 Glucose Level 93 Calcium Level 8.3 L Total Bilirubin 0.1 L Direct Bilirubin 0.00 Indirect Bilirubin 0.1 Aspartate Amino Transf (AST/SGOT) 30 Alanine Aminotransferase (ALT/SGPT) 32 Alkaline Phosphatase 176 H Total Protein 6.0 L Albumin 3.2 L Globulin 2.80 Albumin/Globulin Ratio 1.14 White Blood Count 10.9 H Red Blood Count 3.22 L Hemoglobin 8.5 L Hematocrit 27.7 L Mean Corpuscular Volume 86.0 Mean Corpuscular Hemoglobin 26.4 L Mean Corpuscular Hemoglobin Concent 30.7 L Red Cell Distribution Width 18.1 H Platelet Count 364 Mean Platelet Volume 10.5 H Neutrophils % 73.7 Lymphocytes % 16.5 Monocytes % 6.0 Eosinophils % 2.5 Basophils % 0.3 Nucleated Red Blood Cells % 1.1 H Neutrophils # 8.1 H Lymphocytes # 1.8 Monocytes # 0.7 Eosinophils # 0.3 Basophils # 0.0 Nucleated Red Blood Cells # 0.1 H Phosphorus Level 3.9 Magnesium Level 1.8 Medications Medications Current Medications Piperacillin Sod/ Tazobactam Sod 100 ml @ 25 mls/hr TID@,, IVPB Last administered on 05/05/17 05:35; Admin Dose 25 MLS/HR; Start 05/01/17 at 14:00 Azithromycin/ Sodium Chloride (Zithromax/NS) 250 ml @ 250 mls/hr Q24H IVPB Last administered on 05/04/17 12:13; Admin Dose 250 MLS/HR; Start 05/01/17 at 12:00 Labetalol HCl (Labetalol) 5 mg Q6H PRN IV ELEVATED BLOOD PRESSURE; Start at 12:00 Acetaminophen (Tylenol Tab) 650 mg Q6H PRN PO PAIN AND OR ELEVATED TEMP Last administered on 05/03/17 14:06; Admin Dose 650 MG; Start 05/01/17 at 12:00 Ondansetron HCl (Zofran Inj) 4 mg Q6H PRN IV NAUSEA AND/OR VOMITING Last administered on 05/01/17 13:49; Admin Dose 4 MG; Start 05/01/17 at 12:00 Prenat Multivit/ [place]/Iron/Folic Ac ( S) 1 tab DAILY PO Last administered on 05/05/17 09:30; Admin Dose 1 TAB; Start 05/02/17 at 10:00 Polysaccharide Iron Complex (Niferex-150) 1 cap DAILY PO Last administered on 09:30; Admin Dose 1 CAP; Start 05/03/17 at 09:00 Lorazepam (Ativan) 0.5 mg Q6H PRN IV AGITATION/ANXIETY Last administered on 07:36; Admin Dose 0.5 MG; Start 05/04/17 at 12:00 Betamethasone Acet/Betameth SodPhos (Celestone Soluspan) 12 mg Q12 IM Last administered on 05/05/17 08:16; Admin Dose 12 MG; Start 05/05/17 at 09:00; Stop 05/05/17 at 21:01 Furosemide (Lasix) 40 mg DAILY IV ; Start 05/06/17 at 09:00 RUPAL RICK May 05, 2017 13:02
[2017-05-05] MEDS ORDERED: POTASSIUM CHLORIDE (SR) 20 MEQ TAB PO STA (13:10)
[2017-05-05] MEDS ORDERED: MAGNESIUM SULFATE 2 GM/50 ML 50 ML IVPB ONE (13:30)
[2017-05-05] MEDS: AZITHROMYCIN 500 MG in SOD CHLORIDE 0.9% 250 ML IVPB SCH (13:36)
--- NOTE | 2017-05-05 13:58 | PERINOTE ---
Date/Time of Note Date/Time of Note DATE: 05/05/17 TIME: 13:51 Assessment/Recommendations Other Assessments Pneumonia, improving Cardiomyopathy, concern for progression with report of enlarging heart on CXR. Progression of cardiomyopathy since admission might prompt reconsideration of the diagnosis of peripartum cardiomyopathy . Dating is uncertain Recommendations: Agree with your plan to repeat the echocardiogram Would continue daily BPP, NST q shift Ultrasound every three weeks for growth Discussed labor issues with Dr. Rick. Would appreciate cardiology guidance regarding patient's anticipated tolerance for: autotransfusion, acute blood loss and valsalva. Any need for SBE prophylaxis? Any issues with regional or general anesthesia? OB Subjective Free Text/Dictaton Patient admitted for possible pneumonia and cardiomyopathy thought to be due to substance abuse. She is also 33 weeks by US performed at the time of admission. condition has remained stable throughout the hospital stay. HD# 7 IUP @ [id number] by US. No prior dating information is available Complaints/Overnight events CXR reveals possible larger heart Current Medications Current Medications Piperacillin Sod/ Tazobactam Sod 100 ml @ 25 mls/hr TID@,, IVPB Last administered on 05/05/17 05:35; Admin Dose 25 MLS/HR; Start 05/01/17 at 14:00 Azithromycin/ Sodium Chloride (Zithromax/NS) 250 ml @ 250 mls/hr Q24H IVPB Last administered on 05/05/17 13:36; Admin Dose 250 MLS/HR; Start 05/01/17 at 12:00 Labetalol HCl (Labetalol) 5 mg Q6H PRN IV ELEVATED BLOOD PRESSURE; Start at 12:00 Acetaminophen (Tylenol Tab) 650 mg Q6H PRN PO PAIN AND OR ELEVATED TEMP Last administered on 05/03/17 14:06; Admin Dose 650 MG; Start 05/01/17 at 12:00 Ondansetron HCl (Zofran Inj) 4 mg Q6H PRN IV NAUSEA AND/OR VOMITING Last administered on 05/01/17 13:49; Admin Dose 4 MG; Start 05/01/17 at 12:00 Prenat Multivit/ Trucking Contractor/Iron/Folic Ac ( S) 1 tab DAILY PO Last administered on 05/05/17 09:30; Admin Dose 1 TAB; Start 05/02/17 at 10:00 Polysaccharide Iron Complex (Niferex-150) 1 cap DAILY PO Last administered on 09:30; Admin Dose 1 CAP; Start 05/03/17 at 09:00 Lorazepam (Ativan) 0.5 mg Q6H PRN IV AGITATION/ANXIETY Last administered on 07:36; Admin Dose 0.5 MG; Start 05/04/17 at 12:00 Betamethasone Acet/Betameth SodPhos (Celestone Soluspan) 12 mg Q12 IM Last administered on 05/05/17 08:16; Admin Dose 12 MG; Start 05/05/17 at 09:00; Stop 05/05/17 at 21:01 Furosemide 40 mg 40 mg DAILY IV ; Start 05/06/17 at 09:00 Magnesium Sulfate (Magnesium Sulfate 2 Gm/50 ml) 50 ml @ 25 mls/hr ONCE ONCE IVPB ; Start 05/05/17 at 13:30; Stop 05/05/17 at 15:29 OB Admission Exam Physical Exam Vitals: Vital Signs Date Time Temp Pulse Resp B/P Pulse Ox O2 Delivery O2 Flow Rate FiO2 05/05/17 12:00 110 05/05/17 08:00 97.5 23 99/77 99 Room Air 05/04/17 10:00 3.0 05/03/17 07:05 30 Heart Rate: 130's Accelerations: Accelerations Present Decelerations: No Decelerations Varibility: Moderate Contractions on Admission: None Last 72 hours Lab Results CBC & BMP 05/03/17 05:38 05/04/17 05:48 05/05/17 05:48 05/05/17 05:49 Liver Function Test 05/03/17 05:38 05/05/17 05:48 Alanine Aminotransferase (ALT/SGPT) 37 32 Albumin 2.7 L 3.2 L Alkaline Phosphatase 157 H 176 H Aspartate Amino Transf (AST/SGOT) 44 30 Direct Bilirubin 0.00 0.00 Total Protein 5.4 L 6.0 L Magnesium Level Test 05/03/17 05:31 05/04/17 05:48 05/05/17 05:58 Magnesium Level 1.6 L 1.6 L 1.8 Ultrasound Results EFW 2280 on 04/29/17 BPP 8/8 on 05/05/17 Copies To: CC: RUPAL RICK MARIE H MD May 05, 2017 13:58
--- NOTE | 2017-05-05 14:52 | PN ---
Date/Time of Note Date/Time of Note DATE: 05/05/17 TIME: 14:51 Assessment/Plan VTE Prophylaxis VTE Prophylaxis Intervention: SCD's Lines/Catheters IV [facility] Type [facility] Peripheral IV Urinary Cath still in place: No Assessment/Plan Assessment/Plan Respiratory failure Acute decompensated systolic congestive heart failure Severe cardiomyopathy with ejection fraction 25% Methamphetamine use Possible pneumonia -Respiratory status continues to improve, continue diuretics as blood pressure and renal function permits. -would likely switch to p.o. diuretics in the next 1-2 days. Maintain potassium above 4.0 magnesium above 2.0. -No VON inhibitor at the current time given patient . -recheck echo Subjective 24 Hr Interval Summary Free Text/Dictation The patient continues to improve Exam/Review of Systems Vital Signs Vitals Vital Signs Date Time Temp Pulse Resp B/P Pulse Ox O2 Delivery O2 Flow Rate FiO2 05/05/17 12:00 110 05/05/17 08:00 97.5 23 99/77 99 Room Air 05/04/17 10:00 3.0 05/03/17 07:05 30 Intake and Output 05/04/17 05/04/17 05/05/17 15:00 23:00 07:00 Intake Total 1270 ml 725 ml 540 ml Output Total 1400 ml 1050 ml 1000 ml Balance -130 ml -325 ml -460 ml Results Result Diagram: 05/05/17 0549 05/05/17 0548 Results 24 hrs Laboratory Tests Test 05/05/17 05:48 05/05/17 05:49 05/05/17 05:58 05/05/17 12:15 Sodium Level 133 L Potassium Level 3.6 Chloride Level 101 Carbon Dioxide Level 25 Anion Gap 11 Blood Urea Nitrogen 10 Creatinine 0.74 Glucose Level 93 Calcium Level 8.3 L Total Bilirubin 0.1 L Direct Bilirubin 0.00 Indirect Bilirubin 0.1 Aspartate Amino Transf (AST/SGOT) 30 Alanine Aminotransferase (ALT/SGPT) 32 Alkaline Phosphatase 176 H Total Protein 6.0 L Albumin 3.2 L Globulin 2.80 Albumin/Globulin Ratio 1.14 White Blood Count 10.9 H Red Blood Count 3.22 L Hemoglobin 8.5 L Hematocrit 27.7 L Mean Corpuscular Volume 86.0 Mean Corpuscular Hemoglobin 26.4 L Mean Corpuscular Hemoglobin Concent 30.7 L Red Cell Distribution Width 18.1 H Platelet Count 364 Mean Platelet Volume 10.5 H Neutrophils % 73.7 Lymphocytes % 16.5 Monocytes % 6.0 Eosinophils % 2.5 Basophils % 0.3 Nucleated Red Blood Cells % 1.1 H Neutrophils # 8.1 H Lymphocytes # 1.8 Monocytes # 0.7 Eosinophils # 0.3 Basophils # 0.0 Nucleated Red Blood Cells # 0.1 H Phosphorus Level 3.9 Magnesium Level 1.8 Hepatitis B Surface Antigen NEGATIVE Medications Medications Current Medications Piperacillin Sod/ Tazobactam Sod 100 ml @ 25 mls/hr TID@,,22 IVPB Last administered on 05/05/17 05:35; Admin Dose 25 MLS/HR; Start 05/01/17 at 14:00 Azithromycin/ Sodium Chloride (Zithromax/NS) 250 ml @ 250 mls/hr Q24H IVPB Last administered on 05/05/17 13:36; Admin Dose 250 MLS/HR; Start 05/01/17 at 12:00 Labetalol HCl (Labetalol) 5 mg Q6H PRN IV ELEVATED BLOOD PRESSURE; Start at 12:00 Acetaminophen (Tylenol Tab) 650 mg Q6H PRN PO PAIN AND OR ELEVATED TEMP Last administered on 05/03/17 14:06; Admin Dose 650 MG; Start 05/01/17 at 12:00 Ondansetron HCl (Zofran Inj) 4 mg Q6H PRN IV NAUSEA AND/OR VOMITING Last administered on 05/01/17 13:49; Admin Dose 4 MG; Start 05/01/17 at 12:00 Prenat Multivit/ [place]/Iron/Folic Ac ( S) 1 tab DAILY PO Last administered on 05/05/17 09:30; Admin Dose 1 TAB; Start 05/02/17 at 10:00 Polysaccharide Iron Complex (Niferex-150) 1 cap DAILY PO Last administered on 09:30; Admin Dose 1 CAP; Start 05/03/17 at 09:00 Lorazepam (Ativan) 0.5 mg Q6H PRN IV AGITATION/ANXIETY Last administered on 07:36; Admin Dose 0.5 MG; Start 05/04/17 at 12:00 Betamethasone Acet/Betameth SodPhos (Celestone Soluspan) 12 mg Q12 IM Last administered on 05/05/17 08:16; Admin Dose 12 MG; Start 05/05/17 at 09:00; Stop 05/05/17 at 21:01 Furosemide 40 mg 40 mg DAILY IV ; Start 05/06/17 at 09:00 Magnesium Sulfate (Magnesium Sulfate 2 Gm/50 ml) 50 ml @ 25 mls/hr ONCE ONCE IVPB Last administered on 05/05/17 14:48; Admin Dose 25 MLS/HR; Start at 13:30; Stop 05/05/17 at 15:29 REBEKAH JEAN MD May 05, 2017 14:52
[2017-05-06] VITALS (11 sets, daily range): BP systolic 107–116; BP diastolic 56–71; PULSE 112–128; RESP 16–19
[2017-05-06] MEDS: LORAZEPAM 2 MG INJ IV PRN (05:47)
[2017-05-06] MEDS: PIPER-TAZO 3.375 GM IV (PMX) 100 ML IVPB SCH (05:47)
[2017-05-06 06:03] LABS: ADD SCAN DIFF NO
[2017-05-06 06:09] LABS: BASOPHILS % 0.1 % (0.0-2.0); HEMATOCRIT 26.2 % (37.0-47.0); LYMPHOCYTES # 1.2 10^3/ul (0.8-2.9); LYMPHOCYTES % 7.1 % (15.0-51.0); MEAN CORPUSCULAR HEMOGLOBIN 26.5 pg (29.0-33.0); MEAN CORPUSCULAR HGB CONC 30.5 g/dl (32.0-37.0); MEAN CORPUSCULAR VOLUME 86.8 fl (82.0-101.0); MEAN PLATELET VOLUME 10.3 fl (7.4-10.4); MONOCYTE # 0.5 10^3/ul (0.3-0.9); MONOCYTES % 3.1 % (0.0-11.0); NEUTROPHIL # 14.6 10^3/ul (1.6-7.5); NEUTROPHILS % 87.4 % (39.0-77.0); NUCLEATED RED BLOOD CELLS # 0.1 10^3/ul (0.0-0.0); NUCLEATED RED BLOOD CELLS% 0.3 /100WBC (0.0-0.0); PLATELET COUNT 380 10^3/UL (140-415); RED BLOOD COUNT 3.02 10^6/ul (4.20-5.40); RED CELL DISTRIBUTION WIDTH 18.2 % (11.5-14.5); WHITE BLOOD COUNT 16.8 10^3/ul (4.8-10.8)
[2017-05-06 06:59] LABS: ALBUMIN/GLOBULIN RATIO 1.03; BILIRUBIN,INDIRECT 0.1 mg/dl (0-1.1); BILIRUBIN,TOTAL 0.1 mg/dl (0.2-1.3); CALCIUM 8.9 mg/dl (8.4-10.2); CREATININE 0.71 mg/dl (0.44-1.00); POTASSIUM 4.5 mmol/L (3.5-5.1); TOTAL PROTEIN 5.9 g/dl (6.1-8.1)
[2017-05-06 07:00] LABS: MAGNESIUM 2.1 mg/dl (1.7-2.5); PHOSPHORUS 3.7 mg/dl (2.5-4.9)
[2017-05-06] MEDS ORDERED: FUROSEMIDE 40 MG INJ IV SCH (09:00)
[2017-05-06 11:25] LABS: RUBELLA ANTIBODY - IGG 1.33 index
--- NOTE | 2017-05-06 12:11 | PN ---
Date/Time of Note Date/Time of Note DATE: 05/06/17 TIME: 11:58 Assessment/Plan VTE Prophylaxis VTE Prophylaxis Intervention: ambulation Lines/Catheters IV [facility] Saline Lock Urinary Cath still in place: No Assessment/Plan Assessment/Plan 27-year-old female: 1. Acute Respiratory Failure distress likely secondary to congestive heart failure and pulmonary edema, no alveolar infiltrates on CXR yesterday but interstitial edema, on Lasix and still on Abx too. Remains on RA with good sats x 3 days 2. Hypertension, which is secondary to combination of anxiety and respiratory distress. Currently normotensive. Labetalol prn. 3. 33 weeks viable . Cushion Cover Inspector/laborist following closely, baby on continuous monitoring now. Patient now has heart monitor placed so that she can be followed while she is in the ICU All medications have to be double checked for safety. Repeat echo done and results pending Patient given Betamethasone x 2 doses for lung maturity, last dose given yesterday 4. Cardiomyopathy, likely related to amphetamine, consider also induced, EF 25 %. Per OB request need to repeat echo to re-eval EF. Echo done and reading pending. Sinus Tachy likely multifactorial including currently anemia, . Improving 5. Anemia with Fe deficiency: agree with Iron supplement and also on vitamin. Hb better at 8.0 today. 6. Leukocytosis this AM likely related to steroids given yesterday for Lung maturity 7. Anxiety Disorder, per patient report on Ativan 8. Methamphetamine use. business services administrator following, CPS contacted. Continue Ativan prn anxiety q6 prn Prophylaxis: Sequential compression devices to lower extremity for deep vein thrombosis prophylaxis. Pepcid gastrointestinal prophylaxis. DISPOSITION: On Tele currently, reading of repeat echo pending re delivery early or at term D/c plan when OK with Pulmo and Cardio and Laborist/workday consultant. Subjective 24 Hr Interval Summary Free Text/Dictation Patient doing well and baby stable per OB Given Betamethasone yesterday x 2 doses for maturity HR in 120's Exam/Review of Systems Vital Signs Vitals Vital Signs Date Time Temp Pulse Resp B/P Pulse Ox O2 Delivery O2 Flow Rate FiO2 05/06/17 11:10 97.0 119 19 111/59 99 05/05/17 17:00 Room Air 05/04/17 10:00 3.0 05/03/17 07:05 30 Intake and Output 05/05/17 05/05/17 05/06/17 15:00 23:00 07:00 Intake Total 830 ml 50 ml 700 ml Output Total 800 ml 300 ml Balance 30 ml -250 ml 700 ml Exam Constitutional: alert, oriented, well developed Psych: no complaints Respiratory: clear to auscultation, normal air movement Cardiovascular: other Gastrointestinal: non-tender, other (gravid ), soft Musculoskeletal: nl extremities to inspection Extremities: normal pulses, other (no edema, clubbign or cyanosis ) Neurological: PULP MILL TEAM LEADER II-XII intact, nl mental status, nl speech, nl strength Results Result Diagram: 05/06/17 0535 05/06/17 0530 Results 24 hrs Laboratory Tests Test 05/05/17 12:15 05/06/17 05:30 05/06/17 05:35 Rapid Plasma Reagin NONREACTIVE Hepatitis B Surface Antigen NEGATIVE Rubella IgG Antibody 1.33 H Rubella IgM Antibody Pending Sodium Level 136 Potassium Level 4.5 Chloride Level 106 Carbon Dioxide Level 22 Anion Gap 13 Blood Urea Nitrogen 13 Creatinine 0.71 Glucose Level 127 Calcium Level 8.9 Total Bilirubin 0.1 L Direct Bilirubin 0.00 Indirect Bilirubin 0.1 Aspartate Amino Transf (AST/SGOT) 35 Alanine Aminotransferase (ALT/SGPT) 34 Alkaline Phosphatase 173 H Total Protein 5.9 L Albumin 3.0 L Globulin 2.90 Albumin/Globulin Ratio 1.03 White Blood Count 16.8 #H Red Blood Count 3.02 L Hemoglobin 8.0 L Hematocrit 26.2 L Mean Corpuscular Volume 86.8 Mean Corpuscular Hemoglobin 26.5 L Mean Corpuscular Hemoglobin Concent 30.5 L Red Cell Distribution Width 18.2 H Platelet Count 380 Mean Platelet Volume 10.3 Neutrophils % 87.4 H Lymphocytes % 7.1 L Monocytes % 3.1 Eosinophils % 0.0 Basophils % 0.1 Nucleated Red Blood Cells % 0.3 H Neutrophils # 14.6 H Lymphocytes # 1.2 Monocytes # 0.5 Eosinophils # 0.0 Basophils # 0.0 Nucleated Red Blood Cells # 0.1 H Phosphorus Level 3.7 Magnesium Level 2.1 Medications Medications Current Medications Piperacillin Sod/ Tazobactam Sod 100 ml @ 25 mls/hr TID@,, IVPB Last administered on 05/06/17 05:47; Admin Dose 25 MLS/HR; Start 05/01/17 at 14:00 Azithromycin/ Sodium Chloride (Zithromax/NS) 250 ml @ 250 mls/hr Q24H IVPB Last administered on 05/05/17 13:36; Admin Dose 250 MLS/HR; Start 05/01/17 at 12:00 Labetalol HCl (Labetalol) 5 mg Q6H PRN IV ELEVATED BLOOD PRESSURE; Start at 12:00 Acetaminophen (Tylenol Tab) 650 mg Q6H PRN PO PAIN AND OR ELEVATED TEMP Last administered on 05/03/17 14:06; Admin Dose 650 MG; Start 05/01/17 at 12:00 Ondansetron HCl (Zofran Inj) 4 mg Q6H PRN IV NAUSEA AND/OR VOMITING Last administered on 05/01/17 13:49; Admin Dose 4 MG; Start 05/01/17 at 12:00 Prenat Multivit/ [place]/Iron/Folic Ac ( S) 1 tab DAILY PO Last administered on 05/05/17 09:30; Admin Dose 1 TAB; Start 05/02/17 at 10:00 Polysaccharide Iron Complex (Niferex-150) 1 cap DAILY PO Last administered on 09:30; Admin Dose 1 CAP; Start 05/03/17 at 09:00 Lorazepam (Ativan) 0.5 mg Q6H PRN IV AGITATION/ANXIETY Last administered on 05:47; Admin Dose 0.5 MG; Start 05/04/17 at 12:00 Furosemide (Lasix) 40 mg DAILY IV Last administered on 05/06/17 10:07; Admin Dose 40 MG; Start 05/06/17 at 09:00 RUPAL RICK May 06, 2017 12:11
[2017-05-06] MEDS: AZITHROMYCIN 500 MG in SOD CHLORIDE 0.9% 250 ML IVPB SCH (12:12)
[2017-05-06] MEDS: POLYSACCHARIDE IRON COMPLEX CAP PO SCH (12:12)
[2017-05-06] MEDS: MULTIVIT/MIN/FOLATE/IRON/PREN TAB PO SCH (12:13)
--- NOTE | 2017-05-06 12:25 | CONS ---
Date/Time of Note Date/Time of Note DATE: 05/06/17 TIME: 12:23 Assessment/Plan Assessment/Plan Additional Assessment/Plan Assessment recommendations; 1. Patient admitted for severe shortness of breath due to severe pulmonary edema from underlying cardiomyopathy. Possibly with superimposed pneumonia as well. There has been marked clinical and radiological improvement. 2. Patient currently . 3. History of drug abuse. Discontinue intravenous Lasix. Change Lasix to 20 mg orally daily. Discontinue antibiotics. Consultation Date/Type/Reason Admit Date/Time Apr 29, 2017 at 07:23 Initial Consult Date 04/29/17 Type of Consultation: Pulmonary/critical care 24 HR Interval Summary Free Text/Dictation Patient condition is markedly improved. She has been transferred out of ICU to medical floor. Denies any shortness of breath, chest pain, wheezing cough sputum production fever chills. General exam; young woman awake alert currently in no distress. Exam/Review of Systems Vital Signs Vitals Vital Signs Date Time Temp Pulse Resp B/P Pulse Ox O2 Delivery O2 Flow Rate FiO2 05/06/17 11:10 97.0 119 19 111/59 99 05/05/17 17:00 Room Air 05/04/17 10:00 3.0 05/03/17 07:05 30 Intake and Output 05/05/17 05/05/17 05/06/17 15:00 23:00 07:00 Intake Total 830 ml 50 ml 700 ml Output Total 800 ml 300 ml Balance 30 ml -250 ml 700 ml Exam HEENT examination; supple neck, no JVD. No lymphadenopathy. Midline trachea. No thyromegaly. Pharynx is clear. Patient has fair dentition. Chest examination; clear to auscultation. S1-S2 audible, no murmurs. Regular rhythm. No gallop. Abdomen exam; soft, patient is gravid. Bowel sounds are audible. Extremity examination; no peripheral edema. Pulses 1+ bilaterally. HVAC INSTRUCTOR examination; no focal deficit. Results Result Diagram: 05/06/17 0535 05/06/17 0530 Results 24 hrs Laboratory Tests Test 05/06/17 05:30 05/06/17 05:35 Sodium Level 136 Potassium Level 4.5 Chloride Level 106 Carbon Dioxide Level 22 Anion Gap 13 Blood Urea Nitrogen 13 Creatinine 0.71 Glucose Level 127 Calcium Level 8.9 Total Bilirubin 0.1 L Direct Bilirubin 0.00 Indirect Bilirubin 0.1 Aspartate Amino Transf (AST/SGOT) 35 Alanine Aminotransferase (ALT/SGPT) 34 Alkaline Phosphatase 173 H Total Protein 5.9 L Albumin 3.0 L Globulin 2.90 Albumin/Globulin Ratio 1.03 White Blood Count 16.8 #H Red Blood Count 3.02 L Hemoglobin 8.0 L Hematocrit 26.2 L Mean Corpuscular Volume 86.8 Mean Corpuscular Hemoglobin 26.5 L Mean Corpuscular Hemoglobin Concent 30.5 L Red Cell Distribution Width 18.2 H Platelet Count 380 Mean Platelet Volume 10.3 Neutrophils % 87.4 H Lymphocytes % 7.1 L Monocytes % 3.1 Eosinophils % 0.0 Basophils % 0.1 Nucleated Red Blood Cells % 0.3 H Neutrophils # 14.6 H Lymphocytes # 1.2 Monocytes # 0.5 Eosinophils # 0.0 Basophils # 0.0 Nucleated Red Blood Cells # 0.1 H Phosphorus Level 3.7 Magnesium Level 2.1 Medications Medications Current Medications Piperacillin Sod/ Tazobactam Sod 100 ml @ 25 mls/hr TID@, IVPB Last administered on 05/06/17 05:47; Admin Dose 25 MLS/HR; Start 05/01/17 at 14:00 Azithromycin/ Sodium Chloride (Zithromax/NS) 250 ml @ 250 mls/hr Q24H IVPB Last administered on 05/06/17 12:12; Admin Dose 250 MLS/HR; Start 05/01/17 at 12:00 Labetalol HCl (Labetalol) 5 mg Q6H PRN IV ELEVATED BLOOD PRESSURE; Start at 12:00 Acetaminophen (Tylenol Tab) 650 mg Q6H PRN PO PAIN AND OR ELEVATED TEMP Last administered on 05/03/17 14:06; Admin Dose 650 MG; Start 05/01/17 at 12:00 Ondansetron HCl (Zofran Inj) 4 mg Q6H PRN IV NAUSEA AND/OR VOMITING Last administered on 05/01/17 13:49; Admin Dose 4 MG; Start 05/01/17 at 12:00 Prenat Multivit/ [place]/Iron/Folic Ac ( S) 1 tab DAILY PO Last administered on 05/06/17 12:13; Admin Dose 1 TAB; Start 05/02/17 at 10:00 Polysaccharide Iron Complex (Niferex-150) 1 cap DAILY PO Last administered on 12:12; Admin Dose 1 CAP; Start 05/03/17 at 09:00 Lorazepam (Ativan) 0.5 mg Q6H PRN IV AGITATION/ANXIETY Last administered on 05:47; Admin Dose 0.5 MG; Start 05/04/17 at 12:00 VICTORINO LOYOLA May 06, 2017 12:25
--- NOTE | 2017-05-06 17:52 | PN ---
Date/Time of Note Date/Time of Note DATE: 05/06/17 TIME: 17:52 Assessment/Plan VTE Prophylaxis VTE Prophylaxis Intervention: SCD's Lines/Catheters IV [facility]ter Type (from [facility] Saline Lock Urinary Cath still in place: No Assessment/Plan Assessment/Plan Respiratory failure Acute decompensated systolic congestive heart failure Severe cardiomyopathy with ejection fraction 25% Methamphetamine use Possible pneumonia -Respiratory status continues to improve, continue diuretics as blood pressure and renal function permits. -would likely switch to p.o. diuretics in the next 1-2 days. Maintain potassium above 4.0 magnesium above 2.0. -No VON inhibitor at the current time given patient . -recheck echo Subjective 24 Hr Interval Summary Free Text/Dictation The patient with no cahnge Exam/Review of Systems Vital Signs Vitals Vital Signs Date Time Temp Pulse Resp B/P Pulse Ox O2 Delivery O2 Flow Rate FiO2 05/06/17 16:17 128 05/06/17 15:15 97.4 19 116/71 100 05/05/17 17:00 Room Air 05/04/17 10:00 3.0 05/03/17 07:05 30 Intake and Output 05/05/17 05/05/17 05/06/17 15:00 23:00 07:00 Intake Total 830 ml 50 ml 700 ml Output Total 800 ml 300 ml Balance 30 ml -250 ml 700 ml Results Result Diagram: 05/06/17 0535 05/06/17 0530 Results 24 hrs Laboratory Tests Test 05/06/17 05:30 05/06/17 05:35 Sodium Level 136 Potassium Level 4.5 Chloride Level 106 Carbon Dioxide Level 22 Anion Gap 13 Blood Urea Nitrogen 13 Creatinine 0.71 Glucose Level 127 Calcium Level 8.9 Total Bilirubin 0.1 L Direct Bilirubin 0.00 Indirect Bilirubin 0.1 Aspartate Amino Transf (AST/SGOT) 35 Alanine Aminotransferase (ALT/SGPT) 34 Alkaline Phosphatase 173 H Total Protein 5.9 L Albumin 3.0 L Globulin 2.90 Albumin/Globulin Ratio 1.03 White Blood Count 16.8 #H Red Blood Count 3.02 L Hemoglobin 8.0 L Hematocrit 26.2 L Mean Corpuscular Volume 86.8 Mean Corpuscular Hemoglobin 26.5 L Mean Corpuscular Hemoglobin Concent 30.5 L Red Cell Distribution Width 18.2 H Platelet Count 380 Mean Platelet Volume 10.3 Neutrophils % 87.4 H Lymphocytes % 7.1 L Monocytes % 3.1 Eosinophils % 0.0 Basophils % 0.1 Nucleated Red Blood Cells % 0.3 H Neutrophils # 14.6 H Lymphocytes # 1.2 Monocytes # 0.5 Eosinophils # 0.0 Basophils # 0.0 Nucleated Red Blood Cells # 0.1 H Phosphorus Level 3.7 Magnesium Level 2.1 Medications Medications Current Medications Labetalol HCl (Labetalol) 5 mg Q6H PRN IV ELEVATED BLOOD PRESSURE; Start at 12:00 Acetaminophen (Tylenol Tab) 650 mg Q6H PRN PO PAIN AND OR ELEVATED TEMP Last administered on 05/03/17 14:06; Admin Dose 650 MG; Start 05/01/17 at 12:00 Ondansetron HCl (Zofran Inj) 4 mg Q6H PRN IV NAUSEA AND/OR VOMITING Last administered on 05/01/17 13:49; Admin Dose 4 MG; Start 05/01/17 at 12:00 Prenat Multivit/ [place]/Iron/Folic Ac ( S) 1 tab DAILY PO Last administered on 05/06/17 12:13; Admin Dose 1 TAB; Start 05/02/17 at 10:00 Polysaccharide Iron Complex (Niferex-150) 1 cap DAILY PO Last administered on 12:12; Admin Dose 1 CAP; Start 05/03/17 at 09:00 Lorazepam (Ativan) 0.5 mg Q6H PRN IV AGITATION/ANXIETY Last administered on 05:47; Admin Dose 0.5 MG; Start 05/04/17 at 12:00 Furosemide (Lasix) 20 mg DAILY@06 PO ; Start 05/07/17 at 06:00 REBEKAH JEAN MD May 06, 2017 17:52
[2017-05-07] VITALS (14 sets, daily range): BP systolic 100–137; BP diastolic 65–88; PULSE 48–129; RESP 16–20
[2017-05-07] MEDS: LORAZEPAM 2 MG INJ IV PRN ×2 (00:37→09:30)
[2017-05-07] MEDS: FUROSEMIDE 20 MG TAB PO SCH (06:13)
[2017-05-07 07:44] LABS: ADD SCAN DIFF NO
[2017-05-07 07:49] LABS: BASOPHIL # 0.1 10^3/ul (0.0-0.1); BASOPHILS % 0.3 % (0.0-2.0); EOSINOPHILS # 0.1 10^3/ul (0.0-0.5); EOSINOPHILS % 0.8 % (0.0-7.0); HEMATOCRIT 26.4 % (37.0-47.0); HEMOGLOBIN 8.2 g/dl (12.0-16.0); LYMPHOCYTES # 2.5 10^3/ul (0.8-2.9); LYMPHOCYTES % 13.5 % (15.0-51.0); MEAN CORPUSCULAR HEMOGLOBIN 27.5 pg (29.0-33.0); MEAN CORPUSCULAR HGB CONC 31.1 g/dl (32.0-37.0); MEAN CORPUSCULAR VOLUME 88.6 fl (82.0-101.0); MEAN PLATELET VOLUME 10.5 fl (7.4-10.4); MONOCYTE # 1.2 10^3/ul (0.3-0.9); MONOCYTES % 6.6 % (0.0-11.0); NEUTROPHIL # 13.4 10^3/ul (1.6-7.5); NEUTROPHILS % 73.8 % (39.0-77.0); NUCLEATED RED BLOOD CELLS # 0.4 10^3/ul (0.0-0.0); NUCLEATED RED BLOOD CELLS% 2.4 /100WBC (0.0-0.0); PLATELET COUNT 409 10^3/UL (140-415); RED BLOOD COUNT 2.98 10^6/ul (4.20-5.40); RED CELL DISTRIBUTION WIDTH 18.6 % (11.5-14.5); WHITE BLOOD COUNT 18.2 10^3/ul (4.8-10.8)
[2017-05-07 08:10] LABS: CALCIUM 8.6 mg/dl (8.4-10.2); CREATININE 0.72 mg/dl (0.44-1.00); POTASSIUM 4.4 mmol/L (3.5-5.1)
[2017-05-07] MEDS: POLYSACCHARIDE IRON COMPLEX CAP PO SCH (09:30)
[2017-05-07] MEDS: MULTIVIT/MIN/FOLATE/IRON/PREN TAB PO SCH (09:30)
--- NOTE | 2017-05-07 10:59 | RADRPT ---
PROCEDURE: US OB. CLINICAL INDICATION: Pulmonary edema TECHNIQUE: Multiple sonographic images of the pelvis were obtained. The images were reviewed on a PACS workstation. COMPARISON: 05/05/2017 FINDINGS: There is a single live intrauterine . cardiac activity is identified at a rate of 17 1 beats per minute. presentation is cephalic. Placenta is anterior grade 1 to II Biophysical profile score is as follows: Breathing 2 Movements 2 Tone 2 Fluid volume 2 Amniotic fluid index = 10.5 cm Total biophysical profile score = 8/8 IMPRESSION: Biophysical profile score = 8/8 RPTAT: HH .Giovany Santillan MD, MD Date Time Electronically viewed and signed by .Giovany Santillan MD, on 05/07/2017 10:58 .W/
--- NOTE | 2017-05-07 11:03 | PN ---
DATE: 05/07/2017 PULMONARY FOLLOWUP SUBJECTIVE: Chart reviewed. Events noted. Patient currently on room air, saturating 98%, and does not appear in acute distress. PHYSICAL EXAMINATION: VITAL SIGNS: Blood pressure 117/75, pulse 111, respirations 20, temperature afebrile. HEENT: Pupils are equal and reactive to light. Anicteric sclerae. NECK: Supple. No JVD noted, no cervical adenopathy noted, no carotid bruits heard. LUNGS: A few crackles are present at the bases. CARDIOVASCULAR: S1, S2 normal. ABDOMEN: Gravid uterus. Bowel sounds positive. EXTREMITIES: No clubbing, cyanosis, or edema. NEUROLOGIC: No focal deficits. LABORATORY: Sodium 136, potassium 4.4, chloride 104, CO2 27, BUN 16, creatinine 0.72, glucose 102. WBC 18.2, hemoglobin 8.2, hematocrit 26.4, platelets 409. IMPRESSION: 1. Pulmonary edema, clinically improving. 2. Underlying cardiomyopathy. 3. Patient . 4. History of drug abuse. RECOMMENDATIONS: 1. Continue diuresis. 2. Cardiology followup noted. 3. Continue the current medications. Dictated By: GERALD POPE MD, MA/MARCO Conf#: [id number] DID#: [id number]
--- NOTE | 2017-05-07 12:29 | RADRPT ---
Echocardiogram Report Patient Name: STEPHANIE PATEL Gender: Female Date: 1990 Study Date: 05-May-2017 Digester Cook: [facility] Location: 115 Ref. Physician: CAITLYN RICK Quality: Adequate Procedures: Transthoracic echocardiogram examination. Indications: RE-Eval EF per OB for further decision regarding delivery. 2D/M Mode Doppler Measurement Value Normal Range Measurement Value Normal Range LVIDd 2D 6.4 3.5 - 5.6 cm LVIDs 2D 5.5 2.1 - 4.1 cm LVPWd 2D 0.9 0.6 - 1.1 cm IVSd 2D 0.7 0.6 - 1.1 cm AoR Diam 2D 2.1 2.0 - 3.7 cm EDV 2D 206.3 cm3 ESV 2D 170.8 cm3 LA Dimen 2D 4.4 2.3 - 4.0 cm Findings Left Ventricle: Severe enlargement of left ventricle cavity. Moderate left ventricular systolic dysfunction. Normal left ventricular wall thickness. The left ventricular ejection fraction is visually estimated at 25 %. Left Atrium: There is moderate enlargement of left atrium. IVC: Normal inferior vena cava appearance. Conclusions 1.Severe enlargement of left ventricle cavity. Moderate left ventricular systolic dysfunction. Normal left ventricular wall thickness. The left ventricular ejection fraction is visually estimated at 25 %. Electronically Signed By: Eunice Cabral 07-May-2017 12:28:37 -0700 Patient Name: STEPHANIE PATEL Study Date: 05-May-2017 [id number]
--- NOTE | 2017-05-07 14:13 | QN ---
Documentation Comment 34+wks GA in ICU with pneumonia ,ARDS and CHF Vs tachycardia otherwise stable Gen Patient is cachectic and restless and has dyspnea NST reactive [place] no CTXs Abd soft NT ND Genitalia Deffered Management as per Hospitalist and Cardiology and Perinatalogist NAHUM CHAVES M.D. May 07, 2017 14:13
--- NOTE | 2017-05-07 14:31 | PN ---
Date/Time of Note Date/Time of Note DATE: 05/07/17 TIME: 14:26 Assessment/Plan VTE Prophylaxis VTE Prophylaxis Intervention: ambulation Lines/Catheters IV [facility] Type (from [facility] Saline Lock Central line still needed: No Urinary Cath still in place: No Assessment/Plan Assessment/Plan 27-year-old female in her third trimester of with CM: 1. Acute Respiratory Failure distress likely secondary to congestive heart failure and pulmonary edema, no alveolar infiltrates but interstitial edema, on Lasix and still on Abx too. Remains on RA with good sats x 4 days 2. Hypertension, which is secondary to combination of anxiety and respiratory distress. Currently normotensive. Labetalol prn. 3. 33 weeks viable . 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 Patient now has heart monitor placed so that she can be followed while she is in tele All medications have to be double checked for safety. Repeat echo done and results pending Patient given Betamethasone x 2 doses for lung maturity, last dose given on 05/05/2017 4. Cardiomyopathy, likely related to amphetamine, consider also induced, EF 25 %. Per OB request need to repeat echo to re-eval EF. Echo done and reading pending. Sinus Tachy likely multifactorial including currently anemia, . Improving 5. Anemia with Fe deficiency: agree with Iron supplement and also on vitamin. Hgb improved. 6. Leukocytosis likely related to steroids for Lung maturity. Will monitor 7. Anxiety Disorder, per patient report on Ativan 8. Methamphetamine use. marine services technician following, CPS contacted. Continue Ativan prn anxiety q6 prn 9. Disposition: As she is appears to be stable, the patient may be able to go Labor and Delivery floor for ongoing care. Will discuss with team is this is a safe. Subjective 24 Hr Interval Summary Free Text/Dictation No complaints with her breathing. No SOB while lying flat. She is able to ambulate in the room without dyspnea. Constitutional: no complaints Eyes: no complaints Exam/Review of Systems Vital Signs Vitals Vital Signs Date Time Temp Pulse Resp B/P Pulse Ox O2 Delivery O2 Flow Rate FiO2 05/07/17 13:16 48 05/07/17 11:38 98.0 19 100/65 95 05/07/17 04:00 Room Air 05/04/17 10:00 3.0 05/03/17 07:05 30 Intake and Output 05/06/17 05/06/17 05/07/17 15:00 23:00 07:00 Intake Total 1750 ml 1200 ml Balance 1750 ml 1200 ml Exam Constitutional: alert, oriented Psych: anxiety, no complaints Head: normocephalic Eyes: nl conjunctiva ENMT: nl external ears & nose Neck: supple Respiratory: clear to auscultation Cardiovascular: S3, regular rate and rhythm Gastrointestinal: soft Musculoskeletal: nl extremities to inspection Extremities: normal pulses Results Result Diagram: 05/07/17 0654 05/07/17 0654 Results 24 hrs Laboratory Tests Test 05/07/17 06:54 White Blood Count 18.2 H Red Blood Count 2.98 L Hemoglobin 8.2 L Hematocrit 26.4 L Mean Corpuscular Volume 88.6 Mean Corpuscular Hemoglobin 27.5 L Mean Corpuscular Hemoglobin Concent 31.1 L Red Cell Distribution Width 18.6 H Platelet Count 409 Mean Platelet Volume 10.5 H Neutrophils % 73.8 Lymphocytes % 13.5 L Monocytes % 6.6 Eosinophils % 0.8 Basophils % 0.3 Nucleated Red Blood Cells % 2.4 H Neutrophils # 13.4 H Lymphocytes # 2.5 Monocytes # 1.2 H Eosinophils # 0.1 Basophils # 0.1 Nucleated Red Blood Cells # 0.4 H Sodium Level 136 Potassium Level 4.4 Chloride Level 104 Carbon Dioxide Level 27 Anion Gap 9 Blood Urea Nitrogen 16 Creatinine 0.72 Glucose Level 102 Calcium Level 8.6 Magnesium Level 1.7 Medications Medications Current Medications Labetalol HCl (Labetalol) 5 mg Q6H PRN IV ELEVATED BLOOD PRESSURE; Start at 12:00 Acetaminophen (Tylenol Tab) 650 mg Q6H PRN PO PAIN AND OR ELEVATED TEMP Last administered on 05/03/17 14:06; Admin Dose 650 MG; Start 05/01/17 at 12:00 Ondansetron HCl (Zofran Inj) 4 mg Q6H PRN IV NAUSEA AND/OR VOMITING Last administered on 05/01/17 13:49; Admin Dose 4 MG; Start 05/01/17 at 12:00 Prenat Multivit/ [place]/Iron/Folic Ac ( S) 1 tab DAILY PO Last administered on 05/07/17 09:30; Admin Dose 1 TAB; Start 05/02/17 at 10:00 Polysaccharide Iron Complex (Niferex-150) 1 cap DAILY PO Last administered on 09:30; Admin Dose 1 CAP; Start 05/03/17 at 09:00 Lorazepam (Ativan) 0.5 mg Q6H PRN IV AGITATION/ANXIETY Last administered on 09:30; Admin Dose 0.5 MG; Start 05/04/17 at 12:00 Furosemide (Lasix) 20 mg DAILY@06 PO Last administered on 05/07/17 06:13; Admin Dose 20 MG; Start 05/07/17 at 06:00 DIEGO RIVERA MD May 07, 2017 14:31
[2017-05-07] MEDS: LORAZEPAM 0.5 MG TAB PO PRN (15:36)
--- NOTE | 2017-05-07 16:23 | PERINOTE ---
Date/Time of Note Date/Time of Note DATE: 05/07/17 TIME: 16:12 Assessment/Recommendations Other Assessments Intrauterine in the mid third trimester by late obstetrical ultrasound. 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 Outcome data is therefore somewhat difficult to obtain. Most authorities break maternal dilated cardiomyopathy with a reduced ejection fraction of less than 45% as putting the mother in the highest risk category for , and generally is discouraged. Very sparse data would suggest that the maternal mortality in this instance might be as high as 10%. In the present case and delivery are not avoidable and this patient's outcome is likely to be determined by the care available to her at the time of delivery. Recommendations: I have discussed this patient with Dr. Garcia who is the hospitalist covering this patient today. After discussing what I consider to be this patient's risk of morbidity and mortality in labor he agrees to investigate the possibility of transferring this patient's care to a higher level of care. OB Subjective Free Text/Dictaton The patient was admitted with congestive heart failure secondary to dilated cardiomyopathy. She is also , she has had no care however a ultrasound performed since admission revealed an estimated gestational age of 33 weeks and 1 day based on a size of 2280 g. Of note, standard obstetrical practice would regard a gestational age signed based on a third trimester ultrasound to be suspect, and the accuracy of such an ultrasound is generally assumed to be plus or -3 weeks. The patient's initial echocardiogram revealed an ejection fraction of approximately 25%. Repeat echocardiogram performed on 05/05/17 revealed a dilated left ventricle with an unchanged ejection fraction of approximately 25% . The patient's cardiac failure has been successfully treated and she is now able to oxygenate on room air. HD# 9 IUP @ 34W3D by third trimester US Current Medications Current Medications Labetalol HCl (Labetalol) 5 mg Q6H PRN IV ELEVATED BLOOD PRESSURE; Start at 12:00 Acetaminophen (Tylenol Tab) 650 mg Q6H PRN PO PAIN AND OR ELEVATED TEMP Last administered on 05/03/17t 14:06; Admin Dose 650 MG; Start 05/01/17 at 12:00 Ondansetron HCl (Zofran Inj) 4 mg Q6H PRN IV NAUSEA AND/OR VOMITING Last administered on 05/01/17 13:49; Admin Dose 4 MG; Start 05/01/17 at 12:00 Prenat Multivit/ [place]/Iron/Folic Ac ( S) 1 tab DAILY PO Last administered on 05/07/17 09:30; Admin Dose 1 TAB; Start 05/02/17 at 10:00 Polysaccharide Iron Complex (Niferex-150) 1 cap DAILY PO Last administered on 09:30; Admin Dose 1 CAP; Start 05/03/17 at 09:00 Furosemide (Lasix) 20 mg DAILY@06 PO Last administered on 05/07/17 06:13; Admin Dose 20 MG; Start 05/07/17 at 06:00 Lorazepam (Ativan) 0.5 mg Q6H PRN PO AGITATION/ANXIETY Last administered on 15:36; Admin Dose 0.5 MG; Start 05/07/17 at 15:30 OB Admission Exam Physical Exam Vitals: Vital Signs Date Time Temp Pulse Resp B/P Pulse Ox O2 Delivery O2 Flow Rate FiO2 05/07/17 15:28 98.0 120 20 120/74 97 05/07/17 04:00 Room Air 05/04/17 10:00 3.0 05/03/17 07:05 30 Last 72 hours Lab Results CBC & BMP 05/05/17 05:48 05/05/17 05:49 05/06/17 05:30 05/06/17 05:35 05/07/17 06:54 Liver Function Test 05/05/17 05:48 05/06/17 05:30 Alanine Aminotransferase (ALT/SGPT) 32 34 Albumin 3.2 L 3.0 L Alkaline Phosphatase 176 H 173 H Aspartate Amino Transf (AST/SGOT) 30 35 Direct Bilirubin 0.00 0.00 Total Protein 6.0 L 5.9 L Magnesium Level Test 05/05/17 05:58 05/06/17 05:35 05/07/17 06:54 Magnesium Level 1.8 2.1 1.7 Ultrasound Results [facility] 06/21 ROB CARRERA MD May 07, 2017 16:23
[2017-05-08] VITALS (12 sets, daily range): BP systolic 116–141; BP diastolic 74–95; PULSE 111–124; RESP 16–20
[2017-05-08] MEDS: LORAZEPAM 0.5 MG TAB PO PRN ×4 (00:35→21:23)
[2017-05-08] MEDS: FUROSEMIDE 20 MG TAB PO SCH (05:11)
[2017-05-08] MEDS: MULTIVIT/MIN/FOLATE/IRON/PREN TAB PO SCH (08:05)
[2017-05-08] MEDS: POLYSACCHARIDE IRON COMPLEX CAP PO SCH (08:06)
--- NOTE | 2017-05-08 11:53 | RADRPT ---
PROCEDURE: US biophysical profile. CLINICAL INDICATION: Decreased motion. Pulmonary edema. TECHNIQUE: Multiple sonographic images of the uterus were obtained. The images were revi ewed on a PACS workstation. COMPARISON: No prior studies are available for comparison. FINDINGS: There is a single live intrauterine gestation. heart rate is 166 beats per minute. The position is cephalic. The placenta is anterior grade 0 with no abruption or previa. The ANNA is 12.0 cm. (Normal = 5-20 cm.) Breathing Movement: 2 Gross Body Movement: 2 Tone: 2 Qualitative Amniotic Fluid Volume: 2 TOTAL: 8 IMPRESSION: 1. The biophysical score is 8/8. RPTAT: QQ .Brandon Navarro MD, MD Date Time Electronically viewed and signed by .Brandon Navarro MD, on 05/08/2017 11:52 .R/
--- NOTE | 2017-05-08 14:03 | PN ---
Date/Time of Note Date/Time of Note DATE: 05/08/17 TIME: 13:59 Assessment/Plan VTE Prophylaxis VTE Prophylaxis Intervention: ambulation Lines/Catheters [facility] Saline Lock Urinary Cath still in place: No Assessment/Plan Assessment/Plan 27-year-old female in her third trimester of with CM: 1. Acute Respiratory Failure distress likely secondary to congestive heart failure and pulmonary edema, no alveolar infiltrates but interstitial edema, on Lasix and still on Abx as well. She remains on RA with good sats x 5 days 2. Hypertension, which is secondary to combination of anxiety and respiratory distress. Currently normotensive. Labetalol prn. 3. 34 weeks viable . Intrusion Analyst/laborist following closely, baby on continuous monitoring now. Patient now has heart monitor placed so that she can be followed while she is in tele All medications have to be double checked for safety. Patient given Betamethasone x 2 doses for lung maturity, last dose given on 05/05/2017 4. Cardiomyopathy, likely related to amphetamine, consider also induced, EF 25 %. Per OB request need to repeat echo to re-eval EF. Echo done and reading pending. Sinus Tachy likely multifactorial including currently anemia, . Improving 5. Anemia with Fe deficiency: agree with Iron supplement and also on vitamin. Hgb improved. 6. Leukocytosis likely related to steroids for Lung maturity. Will monitor 7. Anxiety Disorder, per patient report on Ativan 8. Methamphetamine use. director of tax services following, CPS contacted. Continue Ativan prn anxiety q6 prn 9. Disposition: As she is appears to be stable, there is a concern for possible complications with high risk delivery. Will explore options for transfer for higher level fo care. Subjective 24 Hr Interval Summary Free Text/Dictation No complaints. Resting in bed. Constitutional: no complaints Exam/Review of Systems Vital Signs Vitals Vital Signs Date Time Temp Pulse Resp B/P Pulse Ox O2 Delivery O2 Flow Rate FiO2 05/08/17 12:28 121 05/08/17 11:09 98.0 20 116/74 95 05/08/17 00:00 Room Air 05/04/17 10:00 3.0 Intake and Output 05/07/17 05/07/17 05/08/17 15:00 23:00 07:00 Intake Total 1600 ml 240 ml Balance 1600 ml 240 ml Exam Constitutional: alert, oriented Psych: no complaints Head: normocephalic Eyes: nl conjunctiva ENMT: nl external ears & nose Neck: supple Respiratory: clear to auscultation Cardiovascular: other (tachycardic, but no m/r/g) Gastrointestinal: other (34+ weeks ), soft Extremities: normal pulses 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 Results Result Diagram: 05/07/1765305/07/17653 Medications Medications Current Medications Labetalol HCl (Labetalol) 5 mg Q6H PRN IV ELEVATED BLOOD PRESSURE; Start at 12:00 Acetaminophen (Tylenol Tab) 650 mg Q6H PRN PO PAIN AND OR ELEVATED TEMP Last administered on 05/03/17 14:06; Admin Dose 650 MG; Start 05/01/17 at 12:00 Ondansetron HCl (Zofran Inj) 4 mg Q6H PRN IV NAUSEA AND/OR VOMITING Last administered on 05/01/17 13:49; Admin Dose 4 MG; Start 05/01/17 at 12:00 Prenat Multivit/ [place]/Iron/Folic Ac ( S) 1 tab DAILY PO Last administered on 05/08/17 08:05; Admin Dose 1 TAB; Start 05/02/17 at 10:00 Polysaccharide Iron Complex (Niferex-150) 1 cap DAILY PO Last administered on 08:06; Admin Dose 1 CAP; Start 05/03/17 at 09:00 Furosemide (Lasix) 20 mg DAILY@06 PO Last administered on 05/08/17 05:11; Admin Dose 20 MG; Start 05/07/17 at 06:00 Lorazepam (Ativan) 0.5 mg Q6H PRN PO AGITATION/ANXIETY Last administered on 12:54; Admin Dose 0.5 MG; Start 05/07/17 at 15:30 DIEGO RIVERA MD May 08, 2017 14:03
--- NOTE | 2017-05-08 15:44 | PN ---
DATE: 05/08/2017 SUBJECTIVE: Chart reviewed. The patient currently saturating 95%. OBJECTIVE: VITAL SIGNS: Blood pressure 116/74, pulse 123, respirations 20, temperature 98. HEENT: Pupils are equal and react to light. NECK: Supple, no JVD noted, no cervical adenopathy noted, no carotid bruits heard. LUNGS: Fair breath sounds bilaterally. CARDIOVASCULAR: S1, S2 normal. ABDOMEN: Soft, nontender. No organomegaly or masses noted. Gravid uterus. EXTREMITIES: No clubbing or cyanosis noted. NEUROLOGIC: No focal deficits. IMPRESSION: 1. Pulmonary edema, clinically improving. 2. Underlying cardiomyopathy. 3. Mid 3rd trimester of . 4. History of drug abuse. PLAN: 1. We will continue diuresis. 2. Cardiology followup. 3. Perinatology followup noted. 4. Possible transfer to higher level of care. Dictated By: GERALD POPE MD, MA/MARCO Conf#: [id number] DID#: [id number]
[2017-05-09] VITALS (12 sets, daily range): BP systolic 100–130; BP diastolic 60–83; PULSE 115–130; RESP 17–20
[2017-05-09] MEDS: LORAZEPAM 0.5 MG TAB PO PRN ×3 (02:48→18:48)
[2017-05-09] MEDS: FUROSEMIDE 20 MG TAB PO SCH (06:32)
--- NOTE | 2017-05-09 08:43 | PN ---
Date/Time of Note Date/Time of Note DATE: 05/09/17 TIME: 08:41 Assessment/Plan VTE Prophylaxis VTE Prophylaxis Intervention: SCD's Lines/Catheters IV Catheter Type (from [facility]): Saline Lock Urinary Cath still in place: No Assessment/Plan Assessment/Plan Respiratory failure Acute decompensated systolic congestive heart failure Severe cardiomyopathy with ejection fraction 25% Methamphetamine use Possible pneumonia -Respiratory status continues to improve, continue diuretics as blood pressure and renal function permits. -would likely switch to p.o. diuretics in the next 1-2 days. Maintain potassium above 4.0 magnesium above 2.0. -No VON inhibitor at the current time given patient . -recheck echo -possible hydralzine due to low EF, but will check with pharmacy before initiating Subjective 24 Hr Interval Summary Free Text/Dictation The patient with no change, no sob and no overt chf Exam/Review of Systems Vital Signs Vitals Vital Signs Date Time Temp Pulse Resp B/P Pulse Ox O2 Delivery O2 Flow Rate FiO2 05/09/17 08:16 115 05/09/17 07:14 98.6 20 109/67 95 05/09/17 04:00 Room Air Intake and Output 05/08/17 05/08/17 05/09/17 15:00 23:00 07:00 Intake Total 300 ml 250 ml Balance 300 ml 250 ml Results Result Diagram: 05/07/1754 05/07/17653 Medications Medications Current Medications Labetalol HCl (Labetalol) 5 mg Q6H PRN IV ELEVATED BLOOD PRESSURE; Start at 12:00 Acetaminophen (Tylenol Tab) 650 mg Q6H PRN PO PAIN AND OR ELEVATED TEMP Last administered on 05/03/17 14:06; Admin Dose 650 MG; Start 05/01/17 at 12:00 Ondansetron HCl (Zofran Inj) 4 mg Q6H PRN IV NAUSEA AND/OR VOMITING Last administered on 05/01/17 13:49; Admin Dose 4 MG; Start 05/01/17 at 12:00 Prenat Multivit/ [place]/Iron/Folic Ac ( S) 1 tab DAILY PO Last administered on 05/08/17 08:05; Admin Dose 1 TAB; Start 05/02/17 at 10:00 Polysaccharide Iron Complex (Niferex-150) 1 cap DAILY PO Last administered on 08:06; Admin Dose 1 CAP; Start 05/03/17 at 09:00 Furosemide (Lasix) 20 mg DAILY@06 PO Last administered on 05/09/17 06:32; Admin Dose 20 MG; Start 05/07/17 at 06:00 Lorazepam (Ativan) 0.5 mg Q6H PRN PO AGITATION/ANXIETY Last administered on 02:48; Admin Dose 0.5 MG; Start 05/07/17 at 15:30 REBEKAH JEAN MD May 09, 2017 08:42
[2017-05-09] MEDS: MULTIVIT/MIN/FOLATE/IRON/PREN TAB PO SCH (08:49)
[2017-05-09] MEDS: POLYSACCHARIDE IRON COMPLEX CAP PO SCH (08:49)
--- NOTE | 2017-05-09 08:49 | PN ---
Date/Time of Note Date/Time of Note DATE: 05/09/17 TIME: 08:47 Assessment/Plan VTE Prophylaxis VTE Prophylaxis Intervention: contraindicated Lines/Catheters IV Catheter Type (from Nrsg): Saline Lock Urinary Cath still in place: No Assessment/Plan Assessment/Plan 1. cards: dilated caridomyopathy of uncelar etiology , ? vs Etoh Vs amphetamine vs combination (b) CHF, now much improved and breathing room air 2. pulm: acute resp failure secodnary to chf, improved, increase activity 3. , mid 3rd trimester, patietn likely to be transferred to OB unit with appropriate level of NICU? will discuss with OB 4. from IM standpoint, patient is ready for d/c Subjective 24 Hr Interval Summary Free Text/Dictation feeling better, ambulating in room Exam/Review of Systems Vital Signs Vitals Vital Signs Date Time Temp Pulse Resp B/P Pulse Ox O2 Delivery O2 Flow Rate FiO2 05/09/17 08:16 115 05/09/17 07:14 98.6 20 109/67 95 05/09/17 04:00 Room Air Intake and Output 05/08/17 05/08/17 05/09/17 15:00 23:00 07:00 Intake Total 300 ml 250 ml Balance 300 ml 250 ml Exam Constitutional: alert Psych: no complaints Respiratory: clear to auscultation Cardiovascular: regular rate and rhythm Results Result Diagram: 05/07/1754 05/07/1754 Medications Medications Current Medications Labetalol HCl (Labetalol) 5 mg Q6H PRN IV ELEVATED BLOOD PRESSURE; Start at 12:00 Acetaminophen (Tylenol Tab) 650 mg Q6H PRN PO PAIN AND OR ELEVATED TEMP Last administered on 05/03/17 14:06; Admin Dose 650 MG; Start 05/01/17 at 12:00 Ondansetron HCl (Zofran Inj) 4 mg Q6H PRN IV NAUSEA AND/OR VOMITING Last administered on 05/01/17 13:49; Admin Dose 4 MG; Start 05/01/17 at 12:00 Prenat Multivit/ Fisher/Iron/Folic Ac ( S) 1 tab DAILY PO Last administered on 05/08/17 08:05; Admin Dose 1 TAB; Start 05/02/17 at 10:00 Polysaccharide Iron Complex (Niferex-150) 1 cap DAILY PO Last administered on 08:06; Admin Dose 1 CAP; Start 05/03/17 at 09:00 Furosemide (Lasix) 20 mg DAILY@06 PO Last administered on 05/09/17 06:32; Admin Dose 20 MG; Start 05/07/17 at 06:00 Lorazepam (Ativan) 0.5 mg Q6H PRN PO AGITATION/ANXIETY Last administered on 02:48; Admin Dose 0.5 MG; Start 05/07/17 at 15:30 TAMMY RUIZ MD May 09, 2017 08:49
--- NOTE | 2017-05-09 09:50 | RADRPT ---
PROCEDURE: OB ultrasound for biophysical profile CLINICAL INDICATION: Biophysical profile. . TECHNIQUE: Multiple sonographic images of the pelvis were obtained. Transabdominal views are obta ined. COMPARISON: 05/08/2017 FINDINGS: Single intrauterine gestation. Presentation: Cephalic. Placenta: Anterior. No evidence of placental abruption. No evidence of placenta previa. breathing movement = 2/2 tone = 2/2 motion = 2/2 ANNA = 2/2 ANNA = 17.5 cm, previously 11.9 cm heart rate: 135 beats per minute IMPRESSION: Single intrauterine gestation. Biophysical profile 06/21 RPTAT: AADD .Lane Joseph MD, MD Date Time Electronically viewed and signed by .Lane Joseph MD, on 05/09/2017 09:49 .B/
--- NOTE | 2017-05-09 15:03 | QN ---
Documentation Comment iup 34.4 with CHF pt improving vss NSt reactive a/p iup 34.4 ho c/s x3 chf improving would recommend transfer patient to higher level of care and for patient to remain in house until early planned delivery. discussed with corrections caseworker SHANNAN RODAS MD May 09, 2017 15:03
[2017-05-10] VITALS (9 sets, daily range): BP systolic 114–128; BP diastolic 66–84; PULSE 120–130; RESP 16–19
[2017-05-10] MEDS: LORAZEPAM 0.5 MG TAB PO PRN ×3 (00:58→14:49)
[2017-05-10] MEDS: ONDANSETRON 4 MG INJ IV PRN (02:05)
[2017-05-10] MEDS: FUROSEMIDE 20 MG TAB PO SCH (07:03)
[2017-05-10] MEDS: POLYSACCHARIDE IRON COMPLEX CAP PO SCH (08:55)
[2017-05-10] MEDS: MULTIVIT/MIN/FOLATE/IRON/PREN TAB PO SCH (08:55)
--- NOTE | 2017-05-10 09:39 | PN ---
Date/Time of Note Date/Time of Note DATE: 05/10/17 TIME: 09:37 Assessment/Plan VTE Prophylaxis VTE Prophylaxis Intervention: ambulation Lines/Catheters IV Catheter Type (from Nrs): Peripheral IV Urinary Cath still in place: No Assessment/Plan Assessment/Plan 1. cards: dilated caridomyopathy of uncelar etiology , ? vs Etoh Vs amphetamine vs combination (b) CHF, now much improved and breathing room air (c) tachycardia, likely related to above, however, not a candidate for b lex until after delivery 2. pulm: acute resp failure secodnary to chf, improved, increase activity 3. , mid 3rd trimester, patietn likely to be transferred to [facility], case discussed with dr lan and they will accept to [facility]. will confirmt hat bed is still available, transfer when feasible Subjective 24 Hr Interval Summary Free Text/Dictation no new complaints still with gerd Exam/Review of Systems Vital Signs Vitals Vital Signs Date Time Temp Pulse Resp B/P Pulse Ox O2 Delivery O2 Flow Rate FiO2 05/10/17 08:46 123 05/10/17 07:27 98.0 18 128/84 97 05/10/17 06:37 21 05/09/17 04:00 Room Air Intake and Output 05/09/17 05/09/17 05/10/17 14:59 22:59 06:59 Intake Total 900 ml Balance 900 ml Exam Respiratory: clear to auscultation Cardiovascular: nl pulses Results Result Diagram: 05/07/17 0654 05/07/17 0654 Medications Medications Current Medications Labetalol HCl (Labetalol) 5 mg Q6H PRN IV ELEVATED BLOOD PRESSURE; Start at 12:00 Acetaminophen (Tylenol Tab) 650 mg Q6H PRN PO PAIN AND OR ELEVATED TEMP Last administered on 05/03/17 14:06; Admin Dose 650 MG; Start 05/01/17 at 12:00 Ondansetron HCl (Zofran Inj) 4 mg Q6H PRN IV NAUSEA AND/OR VOMITING Last administered on 05/10/17 02:05; Admin Dose 4 MG; Start 05/01/17 at 12:00 Prenat Multivit/ [place]/Iron/Folic Ac ( S) 1 tab DAILY PO Last administered on 05/10/17 08:55; Admin Dose 1 TAB; Start 05/02/17 at 10:00 Polysaccharide Iron Complex (Niferex-150) 1 cap DAILY PO Last administered on 08:55; Admin Dose 1 CAP; Start 05/03/17 at 09:00 Furosemide (Lasix) 20 mg DAILY@06 PO Last administered on 05/10/17 07:03; Admin Dose 20 MG; Start 05/07/17 at 06:00 Lorazepam (Ativan) 0.5 mg Q6H PRN PO AGITATION/ANXIETY Last administered on 07:03; Admin Dose 0.5 MG; Start 05/07/17 at 15:30 TAMMY RUIZ MD May 10, 2017 09:39
--- NOTE | 2017-05-10 13:50 | DS ---
Date/Time of Note Date/Time of Note DATE: 05/10/17 TIME: 13:45 Discharge Summary Admission/Discharge Info Admit Date/Time Apr 29, 2017 at 07:23 Discharge Date/Time 05/09/17 Discharge Diagnosis 1. cardiomyopathy with ejection fraction of 25%, etiology felt to be some combination of vs amphetamine vs alcohol 2. pulmonary edema improved 3. respiratory failure secondaryu to pulmonary edema 4. 3rd trimester pregancy Patient Condition: Fair Consults 1. cardiology: ángel 2. [facility] laborist and perinatology group 3. pulmonary: leatha Hx of Present Illness patient admitted with shorntess of breath and moved to the intensive care unit. she required a brief period of mechanical ventialtion, however with diuresis and antibiotics her respiratory status gradually improved. she was weaned off the ventilator and moved to telemetry. She continued to improved and ioncreased her activity. during her hospitalization it was decided that patient would benefit from ongoing obstetric observation to provide the best possible circumstances for patients impending partruition. this and delivery are felt to be of a high enough risk that patient is transferred to [facility] for ongoing care. Accepting doctor at [facility] is Dr Duvall [facility] Course see hpi Home Meds Reported Medications Magaldrate/Simethicone* (Mag-Al Plus Suspension*) 30 Ml Oral.susp, 30 ML PO Q6H Y for GASTROINTESTINAL UPSET, ML 04/29/17 Multivit/Min/Fol Ac/Iron/Pren* ( S*) 1 Tab Tab, 1 TAB PO DAILY, TAB 04/29/17 Follow-up Plan [facility] Primary Care Provider Not On Staff Doctor Time spent on discharge: > 30 minutes TAMMY RUIZ MD May 10, 2017 13:50
--- NOTE | 2017-05-10 14:31 | RADRPT ---
PROCEDURE: US biophysical profile. CLINICAL INDICATION: Decreased motion. Pulmonary edema. TECHNIQUE: Multiple sonographic images of the uterus were obtained. The images were revi ewed on a PACS workstation. COMPARISON: 05/09/2017. FINDINGS: There is a single live intrauterine gestation. heart rate is 160. beats per minute. The position is cephalic. The placenta is anterior grade 1 with no abruption or previa. The ANNA is 16.3 cm. (Normal = 5-20 cm.) Breathing Movement: 2 Gross Body Movement: 2 Tone: 2 Qualitative Amniotic Fluid Volume: 2 TOTAL: 8 IMPRESSION: 1. The biophysical score is 8/8. RPTAT: QQ .Brandon Navarro MD, MD Date Time Electronically viewed and signed by .Brandon Navarro MD, on 05/10/2017 14:31 .R/
--- NOTE | 2017-05-10 15:37 | CONS ---
Date/Time of Note Date/Time of Note DATE: 05/10/17 TIME: 15:36 Assessment/Plan Assessment/Plan Additional Assessment/Plan Respiratory failure, improved Acute decompensated systolic congestive heart failure Severe cardiomyopathy with ejection fraction 25% Methamphetamine use Possible pneumonia -Patient is respiratory status continues to improve, continue maintenance diuretics as renal function and blood pressure permits. Maintain potassium above 4.0 magnesium above 2.0. Consultation Date/Type/Reason Admit Date/Time Apr 29, 2017 at 07:23 Initial Consult Date 04/29/17 Type of Consultation: cv 24 HR Interval Summary Free Text/Dictation Denies shortness of breath, chest pain, feeling better Exam/Review of Systems Vital Signs Vitals Vital Signs Date Time Temp Pulse Resp B/P Pulse Ox O2 Delivery O2 Flow Rate FiO2 05/10/17 15:31 97.8 124 19 118/78 96 05/10/17 06:37 21 05/09/17 04:00 Room Air Intake and Output 05/09/17 05/09/17 05/10/17 15:00 23:00 07:00 Intake Total 900 ml Balance 900 ml Exam No apparent distress Constitutional: alert, oriented Head: normocephalic Respiratory: other (Coarse breath sounds bilaterally, no wheezing) Cardiovascular: other (S1-S2 heard), regular rate and rhythm Gastrointestinal: bowel sounds, non-tender, soft Extremities: other (No edema) Results Result Diagram: 05/07/1754 05/07/17 0654 Medications Medications Current Medications Labetalol HCl (Labetalol) 5 mg Q6H PRN IV ELEVATED BLOOD PRESSURE; Start at 12:00 Acetaminophen (Tylenol Tab) 650 mg Q6H PRN PO PAIN AND OR ELEVATED TEMP Last administered on 05/03/17 14:06; Admin Dose 650 MG; Start 05/01/17 at 12:00 Ondansetron HCl (Zofran Inj) 4 mg Q6H PRN IV NAUSEA AND/OR VOMITING Last administered on 05/10/17 02:05; Admin Dose 4 MG; Start 05/01/17 at 12:00 Prenat Multivit/ [place]/Iron/Folic Ac ( S) 1 tab DAILY PO Last administered on 05/10/17 08:55; Admin Dose 1 TAB; Start 05/02/17 at 10:00 Polysaccharide Iron Complex (Niferex-150) 1 cap DAILY PO Last administered on 08:55; Admin Dose 1 CAP; Start 05/03/17 at 09:00 Furosemide (Lasix) 20 mg DAILY@06 PO Last administered on 05/10/17 07:03; Admin Dose 20 MG; Start 05/07/17 at 06:00 Lorazepam (Ativan) 0.5 mg Q6H PRN PO AGITATION/ANXIETY Last administered on 14:49; Admin Dose 0.5 MG; Start 05/07/17 at 15:30 Bradford Vinson DO May 10, 2017 15:37
== END 2017-05-10 16:30 | disposition other institution (70) | DRG 781 ==
LOC: E/R 04:46 → ICU 07:23 → E/R 04-30 22:37 → TEL 05-05 17:42
PROVIDERS: ADMIT Internal Medicine; ATTEND Internal Medicine
DX: O10.112 Pre-existing hypertensive heart disease complicating pregnancy, second trimester (principal); J96.90 Respiratory failure, unspecified, unspecified whether with hypoxia or hypercapnia; I50.23 Acute on chronic systolic (congestive) heart failure; O90.3 Peripartum cardiomyopathy; J81.0 Acute pulmonary edema; O99.322 Drug use complicating pregnancy, second trimester; O99.512 Diseases of the respiratory system complicating pregnancy, second trimester; O12.02 Gestational edema, second trimester; O99.012 Anemia complicating pregnancy, second trimester; O9A.512 Psychological abuse complicating pregnancy, second trimester; I11.0 Hypertensive heart disease with heart failure; O99.342 Other mental disorders complicating pregnancy, second trimester; R00.0 Tachycardia, unspecified; F41.9 Anxiety disorder, unspecified; Z3A.26 26 weeks gestation of pregnancy
CPT/HCPCS: 36415; 36600; 71010; 71275; 76815; 76818; 80048; 80053; 80076; 80306; 80307; 82550; 82553; 82607; 82746; 82803; 82962; 83540; 83605; 83615; 83735; 84100; 84484; 85025; 85045; 85378; 85610; 85730; 86360; 86592; 86703; 86762; 86900; 86901; 87040; 87081; 87340; 93005; 93306; 93308; 94660; 96365; 96375; 96376; J1940; J0360; J0456; J0696; J0702; J2060; J2405; J2543; J2930; J3475; J7050; Q9967

== ENCOUNTER 2017-06-06 07:41 | Inpatient (IN) | payer OTHER ==
[~2017-06-06] VITALS: Ht 152.4 cm; Wt 57.0 kg
[~2017-06-06 07:41] MED LIST: PRENAT PO; UDMYL PO
[2017-06-06 07:43] VITALS: Ht 152.4 cm; Wt 57.0 kg
[2017-06-06] MEDS ORDERED: KETOROLAC 15 MG INJ IV STA (07:56)
[2017-06-06] MEDS ORDERED: ASPIRIN 81 MG TAB PO ONE (08:00)
[2017-06-06 08:25] LABS: ABNORMAL IP MESSAGE 1; BASOPHIL # 0.1 10^3/ul (0.0-0.1); BASOPHILS % 0.8 % (0.0-2.0); EOSINOPHILS # 0.3 10^3/ul (0.0-0.5); HEMATOCRIT 36.5 % (37.0-47.0); HEMOGLOBIN 11.6 g/dl (12.0-16.0); LYMPHOCYTES # 3.2 10^3/ul (0.8-2.9); LYMPHOCYTES % 48.4 % (15.0-51.0); MEAN CORPUSCULAR HEMOGLOBIN 29.7 pg (29.0-33.0); MEAN CORPUSCULAR HGB CONC 31.8 g/dl (32.0-37.0); MEAN CORPUSCULAR VOLUME 93.6 fl (82.0-101.0); MEAN PLATELET VOLUME 10.1 fl (7.4-10.4); MONOCYTE # 0.5 10^3/ul (0.3-0.9); MONOCYTES % 7.4 % (0.0-11.0); NEUTROPHIL # 2.6 10^3/ul (1.6-7.5); NEUTROPHILS % 39.1 % (39.0-77.0); PLATELET COUNT 257 10^3/UL (140-415); RED CELL DISTRIBUTION WIDTH 23.3 % (11.5-14.5); WHITE BLOOD COUNT 6.5 10^3/ul (4.8-10.8)
[2017-06-06 08:30] LABS: POSITIVE DIFF @See below
[2017-06-06 08:33] LABS: AADO2 Arterial 24.6 mmHg (7.0-24.0); Allen Test ACCEPTAB; Arterial Base Excess -1.2 mmol/L (-3.0-3); Arterial COHb 0.4 % (0.0-3.0); Arterial Fraction of Oxyhgb 95.4 % (93.0-99.0); Arterial MetHb 0.3 % (0.0-1.5); Arterial Total Hemglobin 13.1 g/dl (12.0-18.0); MODE ROOM AIR
--- NOTE | 2017-06-06 08:33 | RADRPT ---
PROCEDURE: Chest Radiograph. CLINICAL INDICATION: Abdominal pain TECHNIQUE: Single frontal chest radiograph. COMPARISON: Chest radiograph 04/03/2008 FINDINGS: The cardiomediastinal silhouette is within normal limits. No infiltrate or effusion is seen. Th e bones are intact. IMPRESSION: 1. Unremarkable chest radiograph. RPTAT: AA .Jose Demarco MD, MD Date Time Electronically viewed and signed by .Jose Demarco MD, on 06/06/2017 08:32 .B/
[2017-06-06 08:46] LABS: INR 1.57; PROTIME 18.9 Sec (12.2-14.2); PT RATIO 1.5
[2017-06-06 08:48] LABS: D-DIMER 295.58 ng/ml (<460)
[2017-06-06 08:49] LABS: ALANINE AMINOTRANSFERASE 30 IU/L (13-69); ALBUMIN 3.9 g/dl (3.3-4.9); ALBUMIN/GLOBULIN RATIO 1.18; ALKALINE PHOSPHATASE 69 IU/L (42-121); ANION GAP 19 (8-16); ASPARTATE AMINO TRANSFERASE 28 IU/L (15-46); BILIRUBIN,INDIRECT 0.3 mg/dl (0-1.1); BILIRUBIN,TOTAL 0.3 mg/dl (0.2-1.3); BLOOD UREA NITROGEN 27 mg/dl (7-20); CALCIUM 9.2 mg/dl (8.4-10.2); CARBON DIOXIDE 27 mmol/L (21-31); CHLORIDE 100 mmol/L (97-110); CREATININE 0.99 mg/dl (0.44-1.00); GLUCOSE 87 mg/dl (70-220); SODIUM 142 mmol/L (135-144); TOTAL PROTEIN 7.2 g/dl (6.1-8.1)
[2017-06-06 09:01] LABS: TROPONIN-I < 0.012 ng/ml (0.00-0.12)
--- NOTE | 2017-06-06 09:11 | ERA ---
ER Documentation Chief Complaint Date/Time DATE: 06/06/17 TIME: 08:59 Chief Complaint chest pain x 3 days, hx chf, needs refill for warfarin HPI 27-year-old woman with a history of severe ischemic cardiomyopathy and a left ventricular ejection fraction of 25% states she has substernal chest pain and generalized weakness beginning yesterday. The discomfort lasts for about 30 minutes to an hour and she is been sleeping more than usual. She states she ran out of warfarin tablets 2 days ago, but does not recall why she was using warfarin and denies history of irregular heartbeat or pulmonary embolism. She gave about 22 days ago and while at [facility] she was placed on a lifevest wearable defibrillator. Patient denies cough, no fevers or chills, no shortness of breath, no vomiting or diarrhea, no abdominal pain, no calf or leg swelling. She denies using aspirin. ROS All systems reviewed and are negative except as per history of present illness. Medications Home Meds Reported Medications Magaldrate/Simethicone* (Mag-Al Plus Suspension*) 30 Ml Oral.susp, 30 ML PO Q6H Y for GASTROINTESTINAL UPSET, ML 04/29/17 Multivit/Min/Fol Ac/Iron/Pren* ( S*) 1 Tab Tab, 1 TAB PO DAILY, TAB 04/29/17 Allergies Allergies: Coded Allergies: No Known Drug Allergy (Unverified Allergy, Unknown, 06/06/17) PMhx/Soc Cardiomyopathy with ejection fraction of 25%, etiology felt to be some combination of recent with methamphetamine and alcohol abuse, recent pulmonary edema, congestive heart failure, LifeVest placement, methamphetamine and drug abuse, alcohol abuse History of Surgery: Yes (3 c-sections, gallbladder removed ) Anesthesia Reaction: No Hx Neurological Disorder: No Hx Respiratory Disorders: No Hx Cardiac Disorders: Yes (CHF) Hx Psychiatric Problems: No Hx Miscellaneous Medical Probl: No Hx Alcohol Use: No Hx Substance Use: Yes (+ drug screen ) Hx Tobacco Use: No Smoking Status: Never smoker FmHx Family History: No diabetes Physical Exam Vitals Vital Signs Date Time Temp Pulse Resp B/P Pulse Ox O2 Delivery O2 Flow Rate FiO2 06/06/17 07:43 98.0 82 18 118/71 99 Physical Exam GENERAL: Well-developed, well-nourished, well-hydrated, in no apparent distress , looks nontoxic in appearance HEENT: Moist mucous membranes, pink conjunctiva, no cervical spine tenderness or step-off deformities, no goiter, no jaundice or icterus, extraocular movements intact without pain. No submandibular induration, and no pharyngeal erythema NEURO: Alert and oriented 3, cranial nerves II through XII intact bilaterally, pupils equal round reactive to light, no focal deficits or facial asymmetry, sensation intact distally Strength 5/5 in upper and lower extremities bilaterally CARDIAC: Regular rate and rhythm, no murmurs rubs or gallops LUNGS: Clear bilaterally no wheezing crackles or stridor ABDOMEN: Soft nontender, no guarding, no rigidity, no rebound, no psoas sign no obturator sign. Normoactive bowel sounds SKIN: Warm and dry to touch, no abrasions, contusions, or hematomas, no lacerations, no ecchymosis, no target lesions, and without ulcers EXTREMITIES: No clubbing cyanosis or edema, calves are bilaterally symmetrical, no Homans sign, no popliteal cord sign. Distal pulses equal and bilateral PSYCH: Normal affect without agitation or irritability Result Diagram: 06/06/17 0806/06/17 08 Results 24 hrs Laboratory Tests Test 06/06/17 07:56 06/06/17 08:05 Blood Gas Specimen Source Blood arterial Arterial Blood Date Drawn 06/06/2017 8:20:15 AM Arterial Blood pH (Temp corrected) 7.414 Arterial Blood pCO2 (Temp correct) 36.8mmhg Arterial Blood pO2 (Temp corrected) 81.1mmHG Arterial Blood HCO3 23.0mmol/L Arterial Blood Base Excess -1.2mmol/L Arterial Blood Oxygen Saturation 96.1mmHG Ruel Test ACCEPTAB Arterial Blood Gas Puncture Site Left Radial Arterial Blood Carboxyhemoglobin 0.4% Arterial Blood Methemoglobin 0.3% Blood Gas A-a O2 Differential 24.6mmHg Oxyhemoglobin Percent 95.4% Total Hemoglobin 13.1g/dl Blood Gas Temperature 37.0C Blood Gas Modality ROOM AIR FiO2 21.0% Blood Gas Notified Whom JLD Blood Gas Notified Time 06/06/2017 8:33:15 AM White Blood Count 6.510^3/ul Red Blood Count 3.9010^6/ul Hemoglobin 11.6g/dl Hematocrit 36.5% Mean Corpuscular Volume 93.6fl Mean Corpuscular Hemoglobin 29.7pg Mean Corpuscular Hemoglobin Concent 31.8g/dl Red Cell Distribution Width 23.3% Platelet Count 89187^3/UL Mean Platelet Volume 10.1fl Neutrophils % 39.1% Lymphocytes % 48.4% Monocytes % 7.4% Eosinophils % 4.0% Basophils % 0.8% Nucleated Red Blood Cells % 0.0/100WBC Neutrophils # 2.610^3/ul Lymphocytes # 3.210^3/ul Monocytes # 0.510^3/ul Eosinophils # 0.310^3/ul Basophils # 0.110^3/ul Nucleated Red Blood Cells # 0.010^3/ul Prothrombin Time Pending Prothrombin Time Ratio 1.5 INR International Normalized Ratio 1.57 D-Dimer Pending Sodium Level 142mmol/L Potassium Level 4.0mmol/L Chloride Level 100mmol/L Carbon Dioxide Level 27mmol/L Anion Gap 19 Blood Urea Nitrogen 27mg/dl Creatinine 0.99mg/dl Glucose Level 87mg/dl Calcium Level 9.2mg/dl Total Bilirubin 0.3mg/dl Direct Bilirubin 0.00mg/dl Indirect Bilirubin 0.3mg/dl Aspartate Amino Transf (AST/SGOT) 28IU/L Alanine Aminotransferase (ALT/SGPT) 30IU/L Alkaline Phosphatase 69IU/L Troponin I Pending Total Protein 7.2g/dl Albumin 3.9g/dl Globulin 3.30g/dl Albumin/Globulin Ratio 1.18 Lipase 287U/L Current Medications Medications (Trade) Dose Ordered Sig/Germania Route PRN Reason Start Time Stop Time Status Last Admin Dose Admin Aspirin (Aspirin) 162 mg ONCE ONCE PO 06/06/17 08:00 06/06/17 08:01 DC 06/06/17 08:14 Ketorolac Tromethamine (Toradol) 15 mg ONCE STAT IV 06/06/17 07:56 06/06/17 08:00 DC 06/06/17 08:14 Procedures/[facility] IV line was established patient was placed on monitor tech rhythm strip revealed a sinus rhythm at about 70 bpm with upright P and T waves. Patient was afebrile. EKG performed, read by me: 74 bpm, normal sinus rhythm, normal axis, no acute ST segment changes, narrow QRS complex, with good R-wave progression in precordial leads. Chest X-ray 1V Interpreted by me: Soft Tissue: No acute abnormalities Bones: No acute abnormalities Mediastinum/Cardiac Silhouette/Lungs: No acute abnormalities ABG on room air performed, read by me revealed a pH of 7.41, PCO2 37, PO2 81. Normal ABG. I administered aspirin 324 mg p.o. for cardioprotective measures and Toradol 15 mg IV for complaints of pain. Patient is without complaints of chest pain at this time. CBC was normal, electrolytes unremarkable, liver function tests normal, troponin negative coagulation profile normal Cardiac Critical Care: Time: 40 minutes, this was time separate from other billable procedures Treatments/Evaluations: Close monitoring for dangerous arrhythmia and cardiovascular collapse, while treating with advance cardiac medications and techniques. Cardiology consultation was obtained given the patient's extensive cardiac history and recent symptomatology. Dr. Vinson recommended emergent echocardiogram and admission to telemetry setting. Patient will be admitted to telemetry setting for continued medical management cardiology consultation. Departure Diagnosis: Primary Impression: Chest pain Qualified Code: R07.9 - Chest pain, unspecified type Additional Impression: Ischemic cardiomyopathy Condition: AGNIESZKA Chowdary MD Jun 06, 2017 09:10
[2017-06-06 09:26] LABS: ADD UMIC YES; UR ASCORBIC ACID NEGATIVE (NEGATIVE); UR BACTERIA FEW /HPF (NONE SEEN); UR BILIRUBIN (Dip) NEGATIVE (NEGATIVE); UR BLOOD (Dip) 2+ mg/dL (NEGATIVE); UR CLARITY SLIGHTLY CLOUDY (CLEAR); UR COLOR YELLOW (YELLOW); UR GLUCOSE (Dip) NEGATIVE (NEGATIVE); UR KETONES (Dip) NEGATIVE (NEGATIVE); UR LEUKOCYTE ESTERASE (Dip) 3+ Leu/ul (NEGATIVE); UR NITRITE (Dip) NEGATIVE (NEGATIVE); UR RBC 24 /HPF (0-5); UR SPECIFIC GRAVITY (Dip) 1.012 (1.003-1.030); UR SQUAMOUS EPITHELIAL CELL FEW /HPF (FEW); UR TOTAL PROTEIN (Dip) NEGATIVE (NEGATIVE); UR UROBILINOGEN (Dip) NEGATIVE (NEGATIVE)
[2017-06-06 09:40] LABS: BARBITURATES Negative (NEGATIVE); BENZODIAZEPINES Negative (NEGATIVE); CANNABINOIDS Negative (NEGATIVE); COCAINE Negative (NEGATIVE); OPIATES Negative (NEGATIVE)
[2017-06-06 10:06] VITALS: TEMP 98
[2017-06-06] MEDS ORDERED: WARF2.5T PO (12:07)
[2017-06-06] MEDS ORDERED: FER325 PO (12:07)
[2017-06-06 12:48] VITALS: PULSE 76
[2017-06-06 12:51] VITALS: BP 96/57; PULSE 70; RESP 17
[2017-06-06] MEDS ORDERED: ENOXAPARIN 100 MG/ML SYG SC SCH (15:00)
[2017-06-06] MEDS ORDERED: ENOXAPARIN 60 MG/0.6 ML SYG SC SCH (15:00)
[2017-06-06] MEDS ORDERED: MAGNESIUM HYDROXIDE 30ML CUP PO PRN (15:00)
[2017-06-06] MEDS ORDERED: LORAZEPAM 0.5 MG TAB PO PRN (15:00)
[2017-06-06] MEDS ORDERED: ACETAMINOPHEN 325 MG TAB PO PRN (15:00)
[2017-06-06] MEDS ORDERED: HYDROCODONE/APAP (5/325) TAB PO PRN (15:00)
[2017-06-06] MEDS ORDERED: NITROGLYCERIN (SL) 0.4 MG TAB SL PRN (15:00)
[2017-06-06] MEDS ORDERED: DOCUSATE SODIUM 100 MG CAP PO PRN (15:00)
[2017-06-06] MEDS ORDERED: BISACODYL 10 MG SUPP PR PRN (15:00)
[2017-06-06] MEDS ORDERED: ONDANSETRON 4 MG INJ IV PRN (15:00)
[2017-06-06] MEDS ORDERED: NACL 0.9% 3 ML SYG IV SCH (15:00)
--- NOTE | 2017-06-06 15:00 | HP ---
Date/Time of Note Date/Time of Note DATE: 06/06/17 TIME: 14:37 Assessment/Plan VTE Prophylaxis VTE Prophylaxis Intervention: other (Coumadin) Lines/Catheters IV Catheter Type (from Nrs): Peripheral IV Assessment/Plan Assessment/Plan 27-year-old female; 1. 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 Patient was at [facility] and likely due to arrhythmia or prolonged QTC she had a LifeVest, also has been on anticoagulation. Cardiac enzymes negative 1, repeat CK, CK-MB and troponin 8 hours apart 2D echocardiogram repeated Continue anticoagulation, patient will be given a therapeutic dose of Lovenox and also back on Coumadin. 2. Previous methamphetamine use; patient claims that she has not used for the past month at least 3. 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 She has delivered since then and upon discharge from [facility] she was discharged with a LifeVest. She presented at [facility] with chest pains. Apparently she was also on anticoagulation with warfarin but patient has run out and has not taken it for the past 3 days at least. Patient reports that for the past 3 days she has been having intermittent chest pressure, mild. She did call [facility] and apparently she does have warfarin prescribed and ready for her to [place]. She is to follow-up with [facility] cardiology on June 21 and also with a lathe tender with [facility]. Given her presentation, Dr. Posadas he has already been called in the ER and he will be seeing the patient. She is currently stable fairly asymptomatic and wants to go home. She will receive a dose of Lovenox 1.5 mg/kg 1, 1 dose of Coumadin 5 mg and if okay with cardiology can be discharged later on today. She already has a LifeVest from [facility] and scheduled follow-ups. ROS Constitutional: no complaints Cardiovascular: chest pain Gastrointestinal: no complaints Genitourinary: no complaints Musculoskeletal: no complaints Skin: no complaints Neurologic: no complaints Endocrine: no complaints PMH/Family/Social Past Medical History History of methamphetamine use Severe cardiomyopathy likely secondary to methamphetamine LifeVest per [facility], query prolonged QT versus ventricular arrhythmias Recent and delivery 3 weeks ago Past Surgical History Past Surgical Hx: no surgical history Social History Alcohol Use: none Smoking Status: Never smoker Drug Use: other (History of methamphetamine use, last use more than 1-2 months ago per patient, she quit) Exam/Review of Systems Vital Signs Vitals Vital Signs Date Time Temp Pulse Resp B/P Pulse Ox O2 Delivery O2 Flow Rate FiO2 06/06/17 12:51 98.0 70 17 96/57 98 Room Air Exam Constitutional: alert, oriented, well developed Respiratory: clear to auscultation, normal air movement Cardiovascular: nl pulses, regular rate and rhythm Gastrointestinal: non-tender, soft Musculoskeletal: nl extremities to inspection, nl gait and stance Extremities: normal pulses Neurological: AUDIO VISUAL TECHNICIAN II-XII intact, nl mental status, nl speech, nl strength Labs Result Diagram: 06/06/1780406/06/17804 Procedures Procedures PROCEDURE: Chest Radiograph. CLINICAL INDICATION: Abdominal pain TECHNIQUE: Single frontal chest radiograph. COMPARISON: Chest radiograph 04/03/2008 FINDINGS: The cardiomediastinal silhouette is within normal limits. No infiltrate or effusion is seen. The bones are intact. IMPRESSION: 1. Unremarkable chest radiograph. RPTAT: AA .Jose Demarco MD, MD Date Time Electronically viewed and signed by .Jose Demarco MD, on 2016 08:32 RUPAL RICK Jun 06, 2017 14:47
[2017-06-06 16:15] VITALS: PULSE 65
--- NOTE | 2017-06-06 16:40 | RADRPT ---
Echocardiogram Report Patient Name: STEPHANIE PATEL Gender: Female Date: 1990 Study Date: 06-Jun-2017 Car Whacker: Tamy Melvin RDCS Location: 1 Ref. Physician: AGNIESZKA VIRK Quality: Good Procedures: Transthoracic echocardiogram with complete 2D, M-Mode, and doppler examination. Indications: Congestive Heart Failure. 2D/M Mode Doppler Measurement Value Normal Ranges Measurement Value Normal Ranges LVIDd 2D 6.0 3.5 - 5.6 cm AV Peak Abraham 1.1 m/sec LVIDs 2D 5.5 2.1 - 4.1 cm AV Peak PG 5.1 mmHg LVPWd 2D 0.9 0.6 - 1.1 cm AI Peak PG 40.2 mmHg IVSd 2D 1.0 0.6 - 1.1 cm AI Peak Abraham 3.2 m/sec AoR Diam 2D 2.3 2.0 - 3.7 cm AI PHT 734.4 msec EDV 2D 182.4 cm3 MV E Peak Abraham 1.3 m/sec ESV 2D 169.5 cm3 MV A Peak Abraham 0.7 m/sec LA Dimen 2D 3.4 2.3 - 4.0 cm MV E/A 1.8 MV Decel Time 133 msec MV Decel Jay 10 MV E/A 1.8 TR Peak Abraham 3.4 m/sec TR Peak PG 45.1 mmHg RVSP 48.0 mmHg Findings Left Ventricle: Mild concentric left ventricular hypertrophy. Moderate enlargement of left ventricle cavity. Severe global left ventricular systolic dysfunction. Ejection fraction is visually estimated at 25 %. Abnormal Diastolic Function. Right Ventricle: Normal right ventricular size. Normal right ventricular systolic function. Left Atrium: The left atrium is normal in size. Right Atrium: The right atrium is normal in size. Mitral Valve: Mitral valve leaflets appear mildly thickened. Mild mitral annular calcification. Moderate mitral valve regurgitation. Aortic Valve: No hemodynamically significant aortic stenosis by doppler. Aortic cusps appear mildly calcified. Mild aortic valve regurgitation. Tricuspid Valve: Normal appearance of the tricuspid valve. Estimated peak PA systolic pressure 48 mmHg. There is mild to moderate tricuspid regurgitation. Pulmonic Valve: Normal pulmonic valve appearance. There is trace pulmonic regurgitation. Pericardium: Normal pericardium with no significant pericardial effusion. Aorta: Normal aortic root. IVC: Normal size and normal respiratory collapse consistent with normal right atrial pressure. Conclusions Mild concentric left ventricular hypertrophy. Moderate enlargement of left ventricle cavity. Severe global left ventricular systolic dysfunction. Ejection fraction is visually estimated at 25 %. Abnormal Diastolic Function. Normal right ventricular size. Normal right ventricular systolic function. The left atrium is normal in size. The right atrium is normal in size. Moderate mitral valve regurgitation. No hemodynamically significant aortic stenosis by doppler. Mild aortic valve regurgitation. Estimated peak PA systolic pressure 48 mmHg. There is mild to moderate tricuspid regurgitation. Normal pericardium with no significant pericardial effusion. Electronically Signed By: Bradford Vinson 06-Jun-2017 16:40:08 -0700 Patient Name: STEPHANIE PATEL Study Date: 06-Jun-2017 [id number]
[2017-06-06 16:44] LABS: CREATINE KINASE 29 IU/L (23-200)
[2017-06-06 16:55] LABS: CK-MB 0.54 ng/ml (0.0-2.4)
[2017-06-06] MEDS ORDERED: WARFARIN 5 MG TAB PO ONE (17:00)
[2017-06-06 17:05] LABS: TROPONIN-I < 0.012 ng/ml (0.00-0.12)
--- NOTE | 2017-06-06 17:15 | CONS ---
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 No further episodes. ECG with no significant ischemic abnormalities and serial cardiac enzymes remain negative. Echocardiogram with no significant change in ejection fraction. Patient is on Coumadin for unknown reason. No atrial fibrillation seen here. This was started at [facility] and would recommend continuing if no contraindication. Continue CV medication regimen. 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 Consultation Date/Type/Reason Admit Date/Time Jun 06, 2017 at 09:33 Type of Consultation: cv Reason for Consultation Chest pain Hx of Present Illness This is a 27-year-old female known to me from recent previous admission with past medical history of severe cardiomyopathy, recent and methamphetamine use. Patient was at our facility in decompensated congestive heart failure and at the time with recent methamphetamine use. She was transferred to [facility] and as per the patient, she underwent to a healthy baby. She was discharged home with a LifeVest with plans of outpatient cardiology follow-up at their facility. She also was sent home on Coumadin but she is not aware why. Patient presents today with symptoms of chest discomfort. She attempted calling [facility], but her physician was on vacation and she became concerned so she came to our facility for further evaluation and care. Her chest discomfort was with lying down. There is no associated shortness of breath, palpitations, dizziness or lightheadedness. She denies any exertional chest pain or shortness of breath. Her symptoms have since resolved. 12 point review of systems was performed with all pertinent positives and negatives mentioned above and all else is negative Cardiovascular: chest pain Gastrointestinal: no complaints Genitourinary: no complaints Musculoskeletal: no complaints Skin: no complaints Neurologic: no complaints Past Medical History Medical History: congestive heart failure Past Surgical History Family History Significant Family History: no pertinent family hx Social History Alcohol Use: none Smoking Status: Never smoker Drug Use: other (History of methamphetamine use, last use more than 1-2 months ago per patient, she quit) Exam/Review of Systems Vital Signs Vitals Vital Signs Date Time Temp Pulse Resp B/P Pulse Ox O2 Delivery O2 Flow Rate FiO2 06/06/17 16:15 65 06/06/17 12:51 98.0 17 96/57 98 Room Air Exam No apparent distress, sitting in chair Constitutional: alert, oriented Head: normocephalic Neck: supple Respiratory: clear to auscultation, normal air movement Cardiovascular: other (S1-S2 heard), regular rate and rhythm, systolic murmur Gastrointestinal: bowel sounds, non-tender, other (No guarding), soft Extremities: other (No edema) Results Result Diagram: 06/06/17 0806/06/1705 Results 24 hrs Laboratory Tests Test 06/06/17 07:56 06/06/17 08:05 06/06/17 08:35 06/06/17 15:55 Blood Gas Specimen Source Blood arterial Arterial Blood Date Drawn 06/06/2017 8:20:15 AM Arterial Blood pH (Temp corrected) 7.414 Arterial Blood pCO2 (Temp correct) 36.8 Arterial Blood pO2 (Temp corrected) 81.1 Arterial Blood HCO3 23.0 Arterial Blood Base Excess -1.2 Arterial Blood Oxygen Saturation 96.1 Ruel Test ACCEPTAB Arterial Blood Gas Puncture Site Left Radial Arterial Blood Carboxyhemoglobin 0.4 Arterial Blood Methemoglobin 0.3 Blood Gas A-a O2 Differential 24.6 H Oxyhemoglobin Percent 95.4 Total Hemoglobin 13.1 Blood Gas Temperature 37.0 Blood Gas Modality ROOM AIR FiO2 21.0 Blood Gas Notified Whom JLD Blood Gas Notified Time 06/06/2017 8:33:15 AM White Blood Count 6.5 # Red Blood Count 3.90 #L Hemoglobin 11.6 #L Hematocrit 36.5 #L Mean Corpuscular Volume 93.6 Mean Corpuscular Hemoglobin 29.7 Mean Corpuscular Hemoglobin Concent 31.8 L Red Cell Distribution Width 23.3 #H Platelet Count 257 # Mean Platelet Volume 10.1 Neutrophils % 39.1 Lymphocytes % 48.4 Monocytes % 7.4 Eosinophils % 4.0 Basophils % 0.8 Nucleated Red Blood Cells % 0.0 Neutrophils # 2.6 Lymphocytes # 3.2 H Monocytes # 0.5 Eosinophils # 0.3 Basophils # 0.1 Nucleated Red Blood Cells # 0.0 Prothrombin Time 18.9 #H Prothrombin Time Ratio 1.5 INR International Normalized Ratio 1.57 D-Dimer 295.58 # D-Dimer Comment Sodium Level 142 Potassium Level 4.0 Chloride Level 100 Carbon Dioxide Level 27 Anion Gap 19 H Blood Urea Nitrogen 27 H Creatinine 0.99 Glucose Level 87 Calcium Level 9.2 Total Bilirubin 0.3 Direct Bilirubin 0.00 Indirect Bilirubin 0.3 Aspartate Amino Transf (AST/SGOT) 28 Alanine Aminotransferase (ALT/SGPT) 30 Alkaline Phosphatase 69 Troponin I < 0.012 < 0.012 Total Protein 7.2 Albumin 3.9 Globulin 3.30 H Albumin/Globulin Ratio 1.18 Lipase 287 Urine Color YELLOW Urine Clarity SLIGHTLY CLOUDY A Urine pH 5.0 Urine Specific Minto 1.012 Urine Ketones NEGATIVE Urine Nitrite NEGATIVE Urine Bilirubin NEGATIVE Urine Urobilinogen NEGATIVE Urine Leukocyte Esterase 3+ H Urine Microscopic RBC 24 H Urine Microscopic WBC 38 H Urine Squamous Epithelial Cells FEW Urine Bacteria FEW A Urine Hemoglobin 2+ H Urine Glucose NEGATIVE Urine Total Protein NEGATIVE Urine Opiates Screen Negative Urine Barbiturates Negative Urine Amphetamines Screen Negative Urine Benzodiazepines Screen Negative Urine Cocaine Screen Negative Urine Cannabinoids Negative Creatine Kinase 29 Creatine Kinase Index 1.9 Creatinine Kinase MB (Mass) 0.54 Medications Medications Current Medications Ferrous Sulfate (Ferrous Sulfate (Ec)) 325 mg TID PO ; Start 06/06/17 at 21:00 Prenat Multivit/ Water Well Driller/Iron/Folic Ac () 1 tab DAILY PO ; Start 06/07/17 at 09:00 Lorazepam (Ativan) 0.5 mg Q8H PRN PO ANXIETY; Start 06/06/17 at 15:00 Ondansetron HCl (Zofran Inj) 4 mg Q6H PRN IV NAUSEA AND/OR VOMITING; Start at 15:00 Nitroglycerin (Nitroglycerin (Sl Tab) 0.4 Mg) 1 tab Q5M PRN SL CHEST PAIN; Start 06/06/17 at 15:00 Acetaminophen (Tylenol Tab) 650 mg Q6H PRN PO PAIN LEVEL 1-3 OR FEVER; Start at 15:00 Acetaminophen/ Hydrocodone Bitart ([place] (5/325)) 1 tab Q6H PRN PO PAIN LEVEL 4 -6; Start 06/06/17 at 15:00 Docusate Sodium (Colace) 100 mg Q12H PRN PO CONSTIPATION; Start 06/06/17 at 15: 00 Magnesium Hydroxide (Milk Of Mag) 30 ml DAILY PRN PO CONSTIPATION; Start at 15:00 Bisacodyl (Dulcolax Supp) 10 mg DAILY PRN IA CONSTIPATION; Start 06/06/17 at 15 :00 Famotidine (Pepcid) 20 mg Q12 PO ; Start 06/06/17 at 21:00 Enoxaparin Sodium (Lovenox) 90 mg DAILY SC ; Start 06/06/17 at 15:00 Warfarin Sodium (Coumadin) 5 mg ONCE@17 ONCE PO ; Start 06/06/17 at 17:00; Stop 06/06/17 at 17:01 Procedures Procedures ECG demonstrates sinus rhythm at 74 bpm, QRS 82 ms, nonspecific ST-T abnormalities Bradford Vinson DO Jun 06, 2017 17:15
--- NOTE | 2017-06-06 17:18 | PDOCDIS ---
Discharge Instructions CONDITION Patient Condition: Stable ACTIVITY: Activity Restrictions: No Restrictions FOLLOW UP/APPOINTMENTS Follow-up Plan Follow-up with cardiology as an outpatient as previously scheduled, patient to follow-up with [facility] cardiology on June 21, 2017 As instructed from [facility] she needs to continue use of her life Vest Follow-up with primary care physician within 1 week Follow-up with Coumadin clinic through [facility] RUPAL RICK Jun 06, 2017 17:18
[2017-06-06] MEDS ORDERED: FAMOTIDINE 20 MG TAB PO SCH (21:00)
[2017-06-06] MEDS ORDERED: FERROUS SULFATE (EC) 325 MG TAB PO SCH (21:00)
[2017-06-07] MEDS ORDERED: PRENATAL VITAMIN PO SCH (09:00)
== END 2017-06-06 18:55 | disposition home or self-care (01) | DRG 313 ==
LOC: E/R 07:41 → MS4 09:33
PROVIDERS: ADMIT Internal Medicine; ATTEND Internal Medicine
DX: R07.9 Chest pain, unspecified (principal); I25.5 Ischemic cardiomyopathy; I50.22 Chronic systolic (congestive) heart failure; I45.81 Long QT syndrome; Z79.01 Long term (current) use of anticoagulants
CPT/HCPCS: 36415; 36600; 71010; 80053; 80307; 81001; 82550; 82553; 82803; 83690; 84484; 85025; 85378; 85610; 93005; 93306; 96374; J1650; J1885

== ENCOUNTER 2017-08-18 19:23 | Emergency (ER) | payer OTHER ==
[~2017-08-18] VITALS: Ht 152.4 cm; Wt 59.0 kg
[~2017-08-18 19:23] MED LIST changes: +FER325 PO; -UDMYL PO; +WARF2.5T PO
[2017-08-18 19:26] VITALS: Ht 152.4 cm; Wt 59.0 kg
[2017-08-18 19:46] VITALS: TEMP 98.2
[2017-08-18] MEDS ORDERED: SPIR25TA PO (20:12)
[2017-08-18] MEDS ORDERED: CARV6.2579 PO (20:12)
[2017-08-18] MEDS ORDERED: ENAL5TAB PO (20:13)
[2017-08-18] MEDS ORDERED: FURO40TA4 PO (20:13)
[2017-08-18 20:14] LABS: BASOPHIL # 0.1 10^3/ul (0.0-0.1); BASOPHILS % 0.7 % (0.0-2.0); EOSINOPHILS # 0.2 10^3/ul (0.0-0.5); EOSINOPHILS % 2.2 % (0.0-7.0); HEMATOCRIT 34.9 % (37.0-47.0); HEMOGLOBIN 11.7 g/dl (12.0-16.0); LYMPHOCYTES # 2.4 10^3/ul (0.8-2.9); LYMPHOCYTES % 22.2 % (15.0-51.0); MEAN CORPUSCULAR HEMOGLOBIN 34.9 pg (29.0-33.0); MEAN CORPUSCULAR HGB CONC 33.5 g/dl (32.0-37.0); MEAN CORPUSCULAR VOLUME 104.2 fl (82.0-101.0); MEAN PLATELET VOLUME 10.3 fl (7.4-10.4); MONOCYTE # 0.4 10^3/ul (0.3-0.9); NEUTROPHIL # 7.6 10^3/ul (1.6-7.5); NEUTROPHILS % 70.6 % (39.0-77.0); PLATELET COUNT 305 10^3/UL (140-415); RED BLOOD COUNT 3.35 10^6/ul (4.20-5.40); RED CELL DISTRIBUTION WIDTH 14.4 % (11.5-14.5); WHITE BLOOD COUNT 10.8 10^3/ul (4.8-10.8)
[2017-08-18 20:19] LABS: ANION GAP 12 (8-16); BLOOD UREA NITROGEN 15 mg/dl (7-20); CALCIUM 8.7 mg/dl (8.4-10.2); CARBON DIOXIDE 27 mmol/L (21-31); CHLORIDE 106 mmol/L (97-110); CREATINE KINASE 69 IU/L (23-200); CREATININE 0.84 mg/dl (0.44-1.00); GLUCOSE 80 mg/dl (70-220); POTASSIUM 3.8 mmol/L (3.5-5.1); SODIUM 141 mmol/L (135-144)
[2017-08-18 20:32] LABS: B-TYPE NATRIURETIC PEPTIDE 4570 PG/ML (0-125); CK-MB 1.41 ng/ml (0.0-2.4)
[2017-08-18 20:34] LABS: TROPONIN-I < 0.012 ng/ml (0.00-0.12)
[2017-08-18] MEDS ORDERED: ASPIRIN 81 MG TAB PO ONE (21:00)
[2017-08-18] MEDS ORDERED: METOPROLOL 5 MG INJ IV ONE (21:00)
--- NOTE | 2017-08-18 21:02 | RADRPT ---
PROCEDURE: XR Chest. CLINICAL INDICATION: Chest pain. TECHNIQUE: AP Portable chest. COMPARISON: 04/03/2008 FINDINGS: The cardiomediastinal silhouette is normal. The lungs are clear. The osseous structures are unrema rkable. IMPRESSION: No acute findings. RPTAT: HIKT .Javier Jamison MD, MD Date Time Electronically viewed and signed by .Javier Jamison MD, on 08/18/2017 21:01 .T/
[2017-08-18 21:37] VITALS: BP 122/79; PULSE 105; RESP 20
--- NOTE | 2017-08-19 00:33 | ERD ---
ER Documentation Chief Complaint Date/Time DATE: 08/19/17 TIME: 00:27 Chief Complaint CP since 1700, substernal, nonradiating, worse w/ lying down. HPI 27-year-old female with a history of methamphetamine induced cardiomyopathy with chest pressure. This started around 5 PM today. It was substernal, nonradiating, worse with lying down. Associated with some shortness of breath. In the ambulance she received aspirin and a dose of nitroglycerin which helped with her symptoms. Now she only complains of 3 out of 10 chest pressure. She denies any shortness of breath, fever, chills, dizziness. She states she is not taking her cardiac medications like she should be as she ran out of them and has not followed up with her doctor at [facility]. She is also supposed to be wearing a LifeVest, however she does not have it today as the battery ran out. She states she has called the company and they need to recontact her. ROS All systems reviewed and are negative except as per history of present illness. Medications Home Meds Reported Medications Enalapril Maleate* (Enalapril Maleate*) 5 Mg Tablet, 2.5 MG PO BID, TAB 08/18/17 Furosemide* (Furosemide*) 40 Mg Tablet, 40 MG PO BID, TAB 08/18/17 Spironolactone* (Aldactone*) 25 Mg Tablet, 25 MG PO DAILY, #30 TAB 08/18/17 Carvedilol* (Carvedilol*) 6.25 Mg Tablet, 12.5 MG PO BID, #60 TAB 08/18/17 Warfarin Sodium* (Coumadin*) 2.5 Mg Tablet, 5 MG PO DAILY, TAB 06/06/17 Ferrous Sulfate* (Ferrous Sulfate*) 325 Mg Tabec, 325 MG PO TID, TAB 06/06/17 Multivit/Min/Fol Ac/Iron/Pren* ( S*) 1 Tab Tab, 1 TAB PO DAILY, TAB 04/29/17 Allergies Allergies: Coded Allergies: No Known Drug Allergy (Unverified Allergy, Unknown, 08/18/17) PMhx/Soc History of Surgery: Yes (GB, x 4) Anesthesia Reaction: No Hx Neurological Disorder: No Hx Respiratory Disorders: No Hx Cardiac Disorders: Yes (Heart failure) Hx Psychiatric Problems: No Hx Miscellaneous Medical Probl: No Hx Alcohol Use: No Hx Substance Use: No Hx Tobacco Use: No Smoking Status: Never smoker FmHx Family History: No diabetes Physical Exam Vitals Vital Signs Date Time Temp Pulse Resp B/P Pulse Ox O2 Delivery O2 Flow Rate FiO2 08/18/17 21:37 105 20 122/79 100 Room Air 08/18/17 19:46 98.2 126 20 129/92 98 Room Air 08/18/17 19:26 98.0 124 20 129/92 100 Physical Exam Const: well Appearing, nontoxic, no apparent distress Head: Atraumatic Eyes: Normal Conjunctiva ENT: Normal External Ears, Nose and Mouth. Neck: Full range of motion..~ No meningismus. No JVD Resp: Clear to auscultation bilaterally Cardio: Tachycardic and regular rhythm. 2+ distal pulses no murmurs Abd: Soft, non tender, non distended. Normal bowel sounds Skin: No petechiae or rashes Back: No midline or flank tenderness Ext: No cyanosis, or edema Neur: Awake and alert Psych: Normal Mood and Affect Result Diagram: 08/18/17194608/18/171946 Results 24 hrs Laboratory Tests Test 08/18/17 19:47 White Blood Count 10.810^3/ul Red Blood Count 3.3510^6/ul Hemoglobin 11.7g/dl Hematocrit 34.9% Mean Corpuscular Volume 104.2fl Mean Corpuscular Hemoglobin 34.9pg Mean Corpuscular Hemoglobin Concent 33.5g/dl Red Cell Distribution Width 14.4% Platelet Count 05013^3/UL Mean Platelet Volume 10.3fl Neutrophils % 70.6% Lymphocytes % 22.2% Monocytes % 4.0% Eosinophils % 2.2% Basophils % 0.7% Nucleated Red Blood Cells % 0.0/100WBC Neutrophils # 7.610^3/ul Lymphocytes # 2.410^3/ul Monocytes # 0.410^3/ul Eosinophils # 0.210^3/ul Basophils # 0.110^3/ul Nucleated Red Blood Cells # 0.010^3/ul Sodium Level 141mmol/L Potassium Level 3.8mmol/L Chloride Level 106mmol/L Carbon Dioxide Level 27mmol/L Anion Gap 12 Blood Urea Nitrogen 15mg/dl Creatinine 0.84mg/dl Glucose Level 80mg/dl Calcium Level 8.7mg/dl Creatine Kinase 69IU/L Creatine Kinase Index 2.0 Creatinine Kinase MB (Mass) 1.41ng/ml Troponin I < 0.012ng/ml B-Type Natriuretic Peptide 4570PG/ML Current Medications Medications (Trade) Dose Ordered Sig/Germania Route PRN Reason Start Time Stop Time Status Last Admin Dose Admin Metoprolol Tartrate (Lopressor) 5 mg ONCE ONCE IV 08/18/17 21:00 08/18/17 21:01 DC 08/18/17 21:04 Aspirin (Aspirin) 162 mg ONCE ONCE PO 08/18/17 21:00 08/18/17 21:01 DC 08/18/17 21:04 Procedures/MDM EMERGENT LABS AND DIAGNOSTIC STUDIES: Lab Results above were reviewed and interpreted by me. CBC, CMP, troponin within normal limits BNP elevated 12-lead EKG was interpreted by Kirit Faye MD: Sinus tachycardia at 120 bpm Anterior Q waves Normal axis Normal intervals No acute ST or T wave changes suggestive of acute ischemia or STEMI. Radiology Results as interpreted by Radiology below were reviewed by Mario Faye MD: Chest x-ray shows no acute abnormalities Initial Nursing notes reviewed. Previous Medical Records requested via the Electronic Health Record. EMERGENCY DEPARTMENT COURSE / MEDICAL DECISION MAKING: patient is presenting with chest pressure now improved. However she has an extensive cardiac history making her high risk for ACS. Her vitals are notable for tachycardia but otherwise stable. I considered pulmonary embolism, however have a lower suspicion for this as the patient is on Coumadin and her last INR last week was 2. I advised the patient to stay for admission for further workup and stabilization. However the patient did not want to stay and eloped to signing the AMA form. Departure Diagnosis: Primary Impression: Chest pain Chest pain type: unspecified Qualified Code: R07.9 - Chest pain, unspecified type Condition: Good STEVE FAYE MD Aug 19, 2017 00:33
== END 2017-08-18 21:40 | disposition left against medical advice (07) ==
LOC: E/R 19:23
DX: R07.89 Other chest pain (principal); I50.9 Heart failure, unspecified; Z79.01 Long term (current) use of anticoagulants
CPT/HCPCS: 71010; 80048; 82550; 82553; 83880; 84484; 85025; 93005; Z7610; 36415; 96374

== ENCOUNTER 2017-08-28 14:45 | Emergency (ER) | payer OTHER ==
[~2017-08-28] VITALS: Ht 152.4 cm; Wt 60.0 kg
[~2017-08-28 14:45] MED LIST changes: +CARV6.2579 PO; +ENAL5TAB PO; +FURO40TA4 PO; +SPIR25TA PO
[2017-08-28 14:49] VITALS: Ht 152.4 cm; Wt 60.0 kg
[2017-08-28] MEDS ORDERED: FUROSEMIDE 40 MG INJ IV STA (16:04)
--- NOTE | 2017-08-28 16:08 | ERD ---
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 Admits to not taking her medications for a week she ran out. Denies chest pain or palpitations. No abdominal pain, nausea, vomiting or diarrhea. No URI symptoms or cough. Denies leg pain or swelling. No fevers or chills. ROS All systems reviewed and are negative except as per history of present illness. Medications Home Meds Active Scripts Carvedilol* (Carvedilol*) 12.5 Mg Tablet, 12.5 MG PO BID, #60 TAB Prov:JOE BECKFORD MD 08/28/17 Spironolactone* (Aldactone*) 25 Mg Tablet, 25 MG PO DAILY, #30 TAB Prov:JOE BECKFORD MD 08/28/17 Furosemide* (Furosemide*) 40 Mg Tablet, 40 MG PO BID for 30 Days, TAB Prov:JOE BECKFORD MD 08/28/17 Enalapril Maleate* (Enalapril Maleate*) 2.5 Mg Tablet, 2.5 MG PO BID for 30 Days , TAB Prov:JOE BECKFORD MD 08/28/17 Reported Medications Enalapril Maleate* (Enalapril Maleate*) 5 Mg Tablet, 2.5 MG PO BID, TAB 08/18/17 Furosemide* (Furosemide*) 40 Mg Tablet, 40 MG PO BID, TAB 08/18/17 Spironolactone* (Aldactone*) 25 Mg Tablet, 25 MG PO DAILY, #30 TAB 08/18/17 Carvedilol* (Carvedilol*) 6.25 Mg Tablet, 12.5 MG PO BID, #60 TAB 08/18/17 Warfarin Sodium* (Coumadin*) 2.5 Mg Tablet, 5 MG PO DAILY, TAB 06/06/17 Ferrous Sulfate* (Ferrous Sulfate*) 325 Mg Tabec, 325 MG PO TID, TAB 06/06/17 Multivit/Min/Fol Ac/Iron/Pren* ( S*) 1 Tab Tab, 1 TAB PO DAILY, TAB 04/29/17 Allergies Allergies: Coded Allergies: No Known Drug Allergy (Unverified Allergy, Unknown, 08/18/17) PMhx/Soc Reviewed in chart. As per HPI. History of Surgery: Yes (GB, x 4) Anesthesia Reaction: No Hx Neurological Disorder: No Hx Respiratory Disorders: No Hx Cardiac Disorders: Yes (Heart failure) Hx Psychiatric Problems: No Hx Miscellaneous Medical Probl: No Hx Alcohol Use: No Hx Substance Use: No Hx Tobacco Use: No Smoking Status: Never smoker FmHx Family History: No coronary disease, No diabetes, No other Physical Exam Vitals Vital Signs Date Time Temp Pulse Resp B/P Pulse Ox O2 Delivery O2 Flow Rate FiO2 08/28/17 17:48 106 16 110/90 100 Room Air 08/28/17 16:55 107 115/81 08/28/17 14:49 98.1 102 20 120/91 96 Physical Exam Const: Alert, no acute distress. Head: Atraumatic Eyes: Normal Conjunctiva ENT: Normal External Ears, Nose and Mouth. Neck: Full range of motion. JVD Resp: Breath sounds are equal bilaterally with crackles at the bases. No wheezing. Cardio: Regular rate and rhythm, no murmurs Abd: Soft, non tender, non distended. Normal bowel sounds Skin: No petechiae or rashes Back: No midline or flank tenderness Ext: No cyanosis, or edema Neur: Awake and alert. No focal deficit observed. Psych: Normal Mood and Affect Result Diagram: 08/28/17 1618 08/28/17 1618 Results 24 hrs Laboratory Tests Test 08/28/17 16:18 White Blood Count 8.410^3/ul Red Blood Count 3.3110^6/ul Hemoglobin 11.7g/dl Hematocrit 34.7% Mean Corpuscular Volume 104.8fl Mean Corpuscular Hemoglobin 35.3pg Mean Corpuscular Hemoglobin Concent 33.7g/dl Red Cell Distribution Width 15.7% Platelet Count 20606^3/UL Mean Platelet Volume 10.0fl Neutrophils % 66.0% Lymphocytes % 26.5% Monocytes % 5.8% Eosinophils % 0.9% Basophils % 0.6% Nucleated Red Blood Cells % 0.4/100WBC Neutrophils # 5.610^3/ul Lymphocytes # 2.210^3/ul Monocytes # 0.510^3/ul Eosinophils # 0.110^3/ul Basophils # 0.110^3/ul Nucleated Red Blood Cells # 0.010^3/ul Activated Partial Thromboplast Time 36.1Sec Sodium Level 140mmol/L Potassium Level 4.1mmol/L Chloride Level 107mmol/L Carbon Dioxide Level 24mmol/L Anion Gap 13 Blood Urea Nitrogen 18mg/dl Creatinine 0.89mg/dl Glucose Level 76mg/dl Calcium Level 8.5mg/dl B-Type Natriuretic Peptide 9710PG/ML Current Medications Medications (Trade) Dose Ordered Sig/Germania Route PRN Reason Start Time Stop Time Status Last Admin Dose Admin Furosemide (Lasix) 40 mg ONCE STAT IV 08/28/17 16:04 08/28/17 16:09 DC 08/28/17 16:56 Enalapril Maleate (Vasotec) 2.5 mg ONCE ONCE PO 08/28/17 16:30 08/28/17 16:31 DC 08/28/17 17:00 Spironolactone (Aldactone) 25 mg ONCE ONCE PO 08/28/17 16:30 08/28/17 16:31 DC 08/28/17 16:56 EKG: TIME: 15: 30. Sinus tachycardia. Ventricular rate 110. Normal DC and QRS. Right axis deviation. No acute ST segment elevation or depression. No ectopy. EP Interpretation: Abnormal EKG. IMAGING: PROCEDURE: Chest x-ray CLINICAL INDICATION: Shortness of breath TECHNIQUE: Chest single view COMPARISON: 08/18/2017 FINDINGS: There is stable mild cardiomegaly. Mild interstitial CHF is seen. The lungs are clear. The costophrenic angles are sharp. The visualized bony thorax is unremarkable. IMPRESSION: Cardiomegaly with mild interstitial CHF RPTAT: HH .Giovany Santillan MD, Date Time Electronically viewed and signed by .Giovany Santillan MD, MD on 08/28/2017 16:32 .W/ Procedures/MDM DOCUMENTS REVIEWED: ED nurse prior records and prior ED most recently 06/19/2017 ED COURSE: Lasix 40 mg IV, Aldactone 25 mg, carvedilol 6.25 mg and enalapril 2.5 mg orally. REEXAMINATION/REEVALUATION: Time:18:15. Diuresed. Feels significantly better. Ambulatory without shortness of breath. No chest pain. 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 Patient presents with acute on chronic congestive heart failure due to noncompliance with medications. No chest pain or ischemic EKG changes. Improved significantly to diuretics and preload reduction. A 30 day refill of her prescriptions was given. 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 Stable for discharge of precautionary instructions and outpatient follow-up as counseled. Counseled patient and family regarding diagnostic workup, diagnosis and need for followup. Understands to return to ED if symptoms recur, worsen or any other concerns. Departure Diagnosis: Primary Impression: Shortness of breath Additional Impressions: Congestive heart failure Congestive heart failure type: systolic Congestive heart failure chronicity: acute on chronic Qualified Code: I50.23 - Acute on chronic systolic congestive heart failure Cardiomyopathy Cardiomyopathy type: due to drug Qualified Code: I42.7 - Cardiomyopathy secondary to drug Non compliance w medication regimen Condition: Stable (Improved) JOE BECKFORD MD Aug 28, 2017 16:08
[2017-08-28] MEDS ORDERED: ENALAPRIL 2.5 MG TAB PO ONE (16:30)
[2017-08-28] MEDS ORDERED: SPIRONOLACTONE 25 MG TAB PO ONE (16:30)
--- NOTE | 2017-08-28 16:33 | RADRPT ---
PROCEDURE: Chest x-ray CLINICAL INDICATION: Shortness of breath TECHNIQUE: Chest single view COMPARISON: 08/18/2017 FINDINGS: There is stable mild cardiomegaly. Mild interstitial CHF is seen. The lungs are clear. The costophr enic angles are sharp. The visualized bony thorax is unremarkable. IMPRESSION: Cardiomegaly with mild interstitial CHF RPTAT: HH .Giovany Santillan MD, MD Date Time Electronically viewed and signed by .Giovany Santillan MD, MD on 08/28/2017 16:32 .W/
[2017-08-28 16:35] LABS: BASOPHIL # 0.1 10^3/ul (0.0-0.1); BASOPHILS % 0.6 % (0.0-2.0); EOSINOPHILS # 0.1 10^3/ul (0.0-0.5); EOSINOPHILS % 0.9 % (0.0-7.0); HEMATOCRIT 34.7 % (37.0-47.0); HEMOGLOBIN 11.7 g/dl (12.0-16.0); LYMPHOCYTES # 2.2 10^3/ul (0.8-2.9); LYMPHOCYTES % 26.5 % (15.0-51.0); MEAN CORPUSCULAR HEMOGLOBIN 35.3 pg (29.0-33.0); MEAN CORPUSCULAR HGB CONC 33.7 g/dl (32.0-37.0); MEAN CORPUSCULAR VOLUME 104.8 fl (82.0-101.0); MONOCYTE # 0.5 10^3/ul (0.3-0.9); MONOCYTES % 5.8 % (0.0-11.0); NEUTROPHIL # 5.6 10^3/ul (1.6-7.5); NUCLEATED RED BLOOD CELLS% 0.4 /100WBC (0.0-0.0); PLATELET COUNT 308 10^3/UL (140-415); RED BLOOD COUNT 3.31 10^6/ul (4.20-5.40); RED CELL DISTRIBUTION WIDTH 15.7 % (11.5-14.5); WHITE BLOOD COUNT 8.4 10^3/ul (4.8-10.8)
[2017-08-28 17:00] LABS: CALCIUM 8.5 mg/dl (8.4-10.2); CREATININE 0.89 mg/dl (0.44-1.00); POTASSIUM 4.1 mmol/L (3.5-5.1)
[2017-08-28] MEDS ORDERED: SPIR25TA PO (18:37)
[2017-08-28] MEDS ORDERED: FURO40TA4 PO (18:37)
[2017-08-28] MEDS ORDERED: CARV12.579 PO (18:37)
[2017-08-28] MEDS ORDERED: ENAL2.5T PO (18:37)
[2017-08-28 18:48] VITALS: BP 109/89; PULSE 101; RESP 18
== END 2017-08-28 18:48 | disposition home or self-care (01) ==
LOC: FTE 14:45 → E/R 18:48
DX: I50.23 Acute on chronic systolic (congestive) heart failure (principal); I42.7 Cardiomyopathy due to drug and external agent; T50.1X5A Adverse effect of loop [high-ceiling] diuretics, initial encounter; Z79.01 Long term (current) use of anticoagulants; Z91.14 Patient's other noncompliance with medication regimen
CPT/HCPCS: 36415; 71010; 80048; 83880; 85025; 85730; 96374; J1940; Z7502; Z7610

== ENCOUNTER 2017-09-15 01:44 | Emergency (ER) | payer OTHER ==
[~2017-09-15] VITALS: Ht 152.4 cm; Wt 60.2 kg
[~2017-09-15 01:44] MED LIST changes: +CARV12.579 PO; +ENAL2.5T PO
[2017-09-15 01:51] VITALS: Ht 152.4 cm; Wt 60.2 kg
--- NOTE | 2017-09-15 06:15 | EN ---
Date/Time of Note Date/Time of Note DATE: 09/15/17 TIME: 06:15 ER Progress Note This patient was never seen by any physician or nurse. The patient was put in her room then eloped from the ER SELENA BECK DO Sep 15, 2017 06:15
== END 2017-09-15 10:57 | disposition left against medical advice (07) ==
LOC: E/R 01:44
DX: Z53.21 Procedure and treatment not carried out due to patient leaving prior to being seen by health care provider (principal)

== ENCOUNTER 2017-11-10 08:51 | Emergency (ER) | payer OTHER ==
[~2017-11-10] VITALS: Ht 152.4 cm; Wt 61.2 kg
[2017-11-10 08:57] VITALS: Ht 152.4 cm; Wt 61.2 kg
[2017-11-10 10:53] LABS: BASOPHIL # 0.1 10^3/ul (0.0-0.1); BASOPHILS % 0.6 % (0.0-2.0); EOSINOPHILS # 0.2 10^3/ul (0.0-0.5); EOSINOPHILS % 2.1 % (0.0-7.0); HEMATOCRIT 41.1 % (37.0-47.0); HEMOGLOBIN 13.7 g/dl (12.0-16.0); MEAN CORPUSCULAR HEMOGLOBIN 33.7 pg (29.0-33.0); MEAN CORPUSCULAR HGB CONC 33.3 g/dl (32.0-37.0); MEAN PLATELET VOLUME 10.3 fl (7.4-10.4); MONOCYTE # 0.6 10^3/ul (0.3-0.9); MONOCYTES % 6.1 % (0.0-11.0); NEUTROPHIL # 7.5 10^3/ul (1.6-7.5); NEUTROPHILS % 71.7 % (39.0-77.0); PLATELET COUNT 304 10^3/UL (140-415); RED BLOOD COUNT 4.07 10^6/ul (4.20-5.40); RED CELL DISTRIBUTION WIDTH 13.2 % (11.5-14.5); WHITE BLOOD COUNT 10.5 10^3/ul (4.8-10.8)
--- NOTE | 2017-11-10 11:04 | RADRPT ---
PROCEDURE: XR Chest. CLINICAL INDICATION: chest pain TECHNIQUE: Single frontal view of the chest was obtained COMPARISON: CR CHEST 04/03/2008, 08/28/2017 FINDINGS: The heart and mediastinum are within normal limits. The lungs are clear. There is no pleural effusion or pneumothorax. RPTAT: AA IMPRESSION: No acute disease. .Neftaly Toussaint MD, MD Date Time Electronically viewed and signed by .Neftaly Toussaint MD, on 11/10/2017 11:04 .S/
[2017-11-10 11:14] LABS: INR 0.89; PROTIME 12.1 Sec (11.9-14.9); PT RATIO 0.9
[2017-11-10 11:15] LABS: PARTIAL THROMBOPLASTIN TIME 30.5 Sec (25.0-35.0)
[2017-11-10 11:17] LABS: ANION GAP 14 (8-16); BLOOD UREA NITROGEN 19 mg/dl (7-20); CALCIUM 9.4 mg/dl (8.4-10.2); CARBON DIOXIDE 28 mmol/L (21-31); CHLORIDE 102 mmol/L (97-110); CREATININE 0.75 mg/dl (0.44-1.00); GLUCOSE 90 mg/dl (70-220); POTASSIUM 4.5 mmol/L (3.5-5.1)
[2017-11-10 11:18] LABS: SODIUM 139 mmol/L (135-144)
[2017-11-10 11:29] LABS: B-TYPE NATRIURETIC PEPTIDE 1020 PG/ML (0-125)
[2017-11-10 11:30] LABS: TROPONIN-I < 0.012 ng/ml (0.00-0.12)
[2017-11-10] MEDS ORDERED: FUROSEMIDE 20 MG INJ IV ONE (12:00)
--- NOTE | 2017-11-10 12:08 | ERD ---
ER Documentation Chief Complaint Chief Complaint FEELS LIKE "I HAVE WATER IN MY LUNGS;" PT HAS CARDIAC HX HPI This is a 27-year-old female with a history of amphetamine induced cardiomyopathy who presents to the emergency room for evaluation of shortness of breath. The patient states that she feels like she has water on her lungs and states that she has had this in the past and states that she is supposed to be taking Lasix however she ran out of it. The patient states that her shortness of breath is worse when she lays flat. She denies any active chest pain at this time, denies any use of amphetamines recently. The patient denies any nausea or vomiting in also states that she is supposed to be taking Coumadin however she ran out of her Coumadin as well. ROS All systems reviewed and are negative except as per history of present illness. Medications Home Meds Active Scripts Carvedilol* (Carvedilol*) 12.5 Mg Tablet, 12.5 MG PO BID, #60 TAB Prov:JOE BECKFORD MD 08/28/17 Spironolactone* (Aldactone*) 25 Mg Tablet, 25 MG PO DAILY, #30 TAB Prov:JOE BECKFORD MD 08/28/17 Furosemide* (Furosemide*) 40 Mg Tablet, 40 MG PO BID for 30 Days, TAB Prov:JOE BECKFORD MD 08/28/17 Enalapril Maleate* (Enalapril Maleate*) 2.5 Mg Tablet, 2.5 MG PO BID for 30 Days , TAB Prov:JOE BECKFORD MD 08/28/17 Reported Medications Enalapril Maleate* (Enalapril Maleate*) 5 Mg Tablet, 2.5 MG PO BID, TAB 08/18/17 Furosemide* (Furosemide*) 40 Mg Tablet, 40 MG PO BID, TAB 08/18/17 Spironolactone* (Aldactone*) 25 Mg Tablet, 25 MG PO DAILY, #30 TAB 08/18/17 Carvedilol* (Carvedilol*) 6.25 Mg Tablet, 12.5 MG PO BID, #60 TAB 08/18/17 Warfarin Sodium* (Coumadin*) 2.5 Mg Tablet, 5 MG PO DAILY, TAB 06/06/17 Ferrous Sulfate* (Ferrous Sulfate*) 325 Mg Tabec, 325 MG PO TID, TAB 7/24/17 Multivit/Min/Fol Ac/Iron/Pren* ( S*) 1 Tab Tab, 1 TAB PO DAILY, TAB 04/29/17 Allergies Allergies: Coded Allergies: No Known Drug Allergy (Unverified Allergy, Unknown, 08/18/17) PMhx/Soc History of Surgery: Yes (GB, x 4) Anesthesia Reaction: No Hx Neurological Disorder: No Hx Respiratory Disorders: No Hx Cardiac Disorders: Yes (Heart failure) Hx Psychiatric Problems: No Hx Miscellaneous Medical Probl: No Hx Alcohol Use: No Hx Substance Use: No Hx Tobacco Use: No Smoking Status: Never smoker Physical Exam Vitals Vital Signs Date Time Temp Pulse Resp B/P Pulse Ox O2 Delivery O2 Flow Rate FiO2 11/10/17 10:12 Nasal Cannula 2 11/10/17 10:11 Nasal Cannula 2.0 11/10/17 08:57 97.6 101 20 157/70 100 Physical Exam INITIAL VITAL SIGNS: Reviewed by me GENERAL: The patient is well developed and appropriate for usual state of health in no apparent distress HEENT: Pupils equal, round, and reactive to light. EOMI. There is no scleral icterus. NECK: C-spine is soft and supple, there is no meningismus. There is no cervical lymphadenopathy. LUNGS: Clear to auscultation bilaterally. There are no rales, wheezes or rhonchi. HEART: Regular rate and rhythm, no murmurs, clicks, rubs or gallops. ABDOMEN: Soft, non-tender, non-distended. There are bowel sounds in all four quadrants. No rebound or guarding. EXTREMITIES: There is no peripheral cyanosis or edema. No focal swelling or erythema. NEUROLOGICAL: The patient moves all four extremities with 5/5 strength. Cranial nerves II - XII are intact. Normal gait. Alert and oriented SKIN: There is no apparent rash or petechiae. HEME/LYMPHATIC: There is no evidence of excessive bruising or lymphedema. PSYCHIATRIC: The patient does not appear anxious or depressed. Result Diagram: 11/10/17 1030 11/10/17 1030 Results 24 hrs Laboratory Tests Test 11/10/17 10:30 White Blood Count 10.510^3/ul Red Blood Count 4.0710^6/ul Hemoglobin 13.7g/dl Hematocrit 41.1% Mean Corpuscular Volume 101.0fl Mean Corpuscular Hemoglobin 33.7pg Mean Corpuscular Hemoglobin Concent 33.3g/dl Red Cell Distribution Width 13.2% Platelet Count 11658^3/UL Mean Platelet Volume 10.3fl Neutrophils % 71.7% Lymphocytes % 19.0% Monocytes % 6.1% Eosinophils % 2.1% Basophils % 0.6% Nucleated Red Blood Cells % 0.0/100WBC Neutrophils # 7.510^3/ul Lymphocytes # 2.010^3/ul Monocytes # 0.610^3/ul Eosinophils # 0.210^3/ul Basophils # 0.110^3/ul Nucleated Red Blood Cells # 0.010^3/ul Prothrombin Time 12.1Sec Prothrombin Time Ratio 0.9 INR International Normalized Ratio 0.89 Activated Partial Thromboplast Time 30.5Sec Sodium Level 139mmol/L Potassium Level 4.5mmol/L Chloride Level 102mmol/L Carbon Dioxide Level 28mmol/L Anion Gap 14 Blood Urea Nitrogen 19mg/dl Creatinine 0.75mg/dl Glucose Level 90mg/dl Calcium Level 9.4mg/dl Troponin I < 0.012ng/ml B-Type Natriuretic Peptide 1020PG/ML Current Medications Medications (Trade) Dose Ordered Sig/German[place] Route PRN Reason Start Time Stop Time Status Last Admin Dose Admin Furosemide (Lasix) 20 mg ONCE ONCE IV 11/10/17 12:00 11/10/17 12:01 Procedures/MDM EKG: Rate/Rhythm: [Normal Sinus Rhythm] QRS, ST, T-waves: [No changes consistent w/ acute ischemia] Impression: [No evidence of ischemia or arrhythmia] Chest X-ray 1V Interpreted by me: Soft Tissue: No acute abnormalities Bones: No acute abnormalities Mediastinum/Cardiac Silhouette/Lungs: [No acute abnormalities] This 27-year-old female presents to the emergency room for evaluation of shortness of breath. This patient does have a history of amphetamine induced cardiomyopathy. She is supposed to be wearing a LifeVest however she is not wearing it because she she states it ran out of battery. The patient states that she ran out of her Coumadin, Lasix, and her enalapril. The patient states that she has been out of her medications for approximately 2 weeks. She denies any active chest pain at this time but does state that she was short of breath when she lays flat. EKG is nonischemic, chest x-ray does not show any signs of pulmonary edema and this patient is hemodynamically stable at this time. This patient was given IV Lasix in the emergency room, she will be discharged home with a prescription for Lasix, Coumadin 5 mg daily, and enalapril. She was advised she can return to the emergency room at any point if her symptoms worsen and she verbalized understanding Departure Diagnosis: Primary Impression: Shortness of breath Additional Impressions: Cardiomyopathy Noncompliance with medication regimen Condition: Stable MARIBELL WILLIAMSON DO Nov 10, 2017 12:08
[2017-11-10] MEDS ORDERED: ENAL2.5T PO (12:09)
[2017-11-10] MEDS ORDERED: WARF5TAB72 PO (12:09)
[2017-11-10] MEDS ORDERED: FURO-110 PO (12:09)
[2017-11-10 13:04] VITALS: BP 110/78; PULSE 85; RESP 18
== END 2017-11-10 13:09 | disposition home or self-care (01) ==
LOC: E/R 08:51
DX: R06.02 Shortness of breath (principal); I42.9 Cardiomyopathy, unspecified; Z79.01 Long term (current) use of anticoagulants; Z91.14 Patient's other noncompliance with medication regimen
CPT/HCPCS: 36415; 71010; 80048; 83880; 84484; 85025; 85610; 85730; 93005; 96374; J1940; Z7502

== ENCOUNTER 2018-01-06 04:30 | Inpatient (IN) | END 2018-01-10 18:55 | disposition home or self-care (01) | DRG 292 ==

== ENCOUNTER 2018-03-06 20:34 | Observation (INO) | END 2018-03-08 12:39 | disposition home or self-care (01) ==

== ENCOUNTER 2018-03-26 21:39 | Inpatient (IN) | END 2018-03-28 12:00 | disposition home or self-care (01) | DRG 292 ==

== ENCOUNTER 2018-04-07 07:37 | Emergency (ER) | END 2018-04-07 10:13 | disposition home or self-care (01) ==

== ENCOUNTER 2018-04-16 21:03 | Emergency (ER) | END 2018-04-17 00:36 | disposition left against medical advice (07) ==

== ENCOUNTER 2018-04-23 15:56 | Emergency (ER) | END 2018-04-23 19:25 | disposition home or self-care (01) ==

== ENCOUNTER 2018-04-30 06:12 | Inpatient (IN) | END 2018-05-01 10:40 | disposition home or self-care (01) | DRG 292 ==

== ENCOUNTER 2018-05-22 00:27 | Inpatient (IN) | END 2018-05-29 18:19 | disposition home or self-care (01) | DRG 291 ==

== ENCOUNTER 2018-06-01 08:35 | Inpatient (IN) | END 2018-06-02 18:35 | disposition home or self-care (01) | DRG 292 ==

== ENCOUNTER 2018-07-22 09:12 | Emergency (ER) | END 2018-07-22 13:49 | disposition home or self-care (01) ==